=== PATIENT | male | born 1935 | race Caucasian/White ===

== ENCOUNTER 2018-07-11 12:34 | Inpatient (IN) | payer MEDICARE, BC ==
[2018-07-11] MEDS ORDERED: Bisacodyl 10 MG Supp RECTAL PRN (13:30)
[2018-07-11] MEDS ORDERED: Acetaminophen/HYDROcodone 325-5 MG Tab PO PRN (13:32)
[2018-07-11] MEDS ORDERED: traZODone 50 MG Tab PO PRN (13:45)
[2018-07-11] MEDS ORDERED: Albuterol 0.083% 2.5 MG/3 ML Neb Soln INH PRN (15:00)
[2018-07-11] MEDS: CILOSTAZOL 100 MG PO SCH (17:54)
[2018-07-11] MEDS: Insuln Aspart Prot/Insulin Aspart 100 Units/ML 3 ML FlexPen SUBCUT SCH (18:12)
[2018-07-11] MEDS: Linezolid 600 MG Tab PO SCH (19:57)
[2018-07-11] MEDS: Sulfamethoxazole/Trimethoprim 800-160 MG Tab PO SCH (19:57)
[2018-07-11] MEDS: hydrALAZINE 25 MG Tab PO SCH (19:58)
[2018-07-11] MEDS: Mupirocin Oint 22 GM Tube TOP SCH (20:49)
[2018-07-12] MEDS: CILOSTAZOL 100 MG PO SCH (06:24)
[2018-07-12] MEDS: Levothyroxine 75 MCG Tab PO SCH (06:44)
[2018-07-12] MEDS ORDERED: Insuln Aspart Prot/Insulin Aspart 100 Units/ML 3 ML FlexPen SUBCUT SCH (07:00)
[2018-07-12] MEDS ORDERED: CILOSTAZOL 100 MG PO SCH (07:00)
[2018-07-12] MEDS: Calcium Carbonate 750 MG Tab.Chew PO SCH (08:01)
[2018-07-12] MEDS: Oxybutynin 5 MG Tab.ER PO SCH (08:02)
[2018-07-12] MEDS: Sulfamethoxazole/Trimethoprim 800-160 MG Tab PO SCH ×2 (08:03→19:38)
[2018-07-12] MEDS: amLODIPine 10 MG Tab PO SCH (08:03)
[2018-07-12] MEDS: Aspirin 325 MG Tab.EC PO SCH (08:03)
[2018-07-12] MEDS: hydrALAZINE 25 MG Tab PO SCH ×2 (08:04→19:37)
[2018-07-12] MEDS: Famotidine 20 MG Tab PO SCH (08:05)
[2018-07-12] MEDS: Metoprolol Succinate 50 MG Tab.ER PO SCH (08:05)
[2018-07-12] MEDS: Linezolid 600 MG Tab PO SCH ×2 (08:06→19:38)
--- NOTE | 2018-07-12 09:03 | PCM.HP ---
H&P History of Present Illness - General Date of Service: 07/11/18 Admit Problem/Dx: Admission Diagnosis/Problem Admission Diagnosis/Problem Squamous cell carcinoma Source of Information: Patient, Old Records, RN, RN Notes Reviewed History Limitations: Reports: No Limitations - History of Present Illness Initial Comments - Free Text/Narative: Melvin Hidalgo is a 82 yo male with a history of swelling, pain, and some drainage from the left ear for at least 6 months. He was treated with various courses of antibiotics and had culture which grew out methicillin-sensitive Staph aureus. He apparently had incision and drainage of the area in [facility] in September 2017. He had persistent swelling following. Dr. Villafuerte ordered a CT scan of the head which showed soft tissue edema and phlegmon in the lateral part of the ear canal and posterior auricular area. The patient was evaluated by Dr. Aurelio Weinberg in ENT, and upon examination the patient was noted to have an open wound on the posterior auricular area. 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 He was temporized with a vacuum- assisted closure device while final pathology was obtained. Given infection over the tumor, he was also kept on antibiotics to minimize reconstruction contamination. 1 week post op from that operation final margins were negative for tumor involvement and he was taken back to the operating room for a left latissimus free flap and skin graft reconstruction of the ablative defect. He tolerated both operations well. From a neurological standpoint he had no acute issues. From a cardiovascular standpoint his hypertension was managed and remained stable. He had no acute cardiac problems. From a GI standpoint he was tolerating a diabetic diet. He was kept on sliding scale insulin as well as basal insulin which he tolerated well. He was kept also on Synthroid for hypothyroidism. He did have some constipation and was started on a bowel regimen consisting of MiraLAX, Senokot and suppositories but was able to have a bowel movement uneventfully. Pain was controlled with hydrocodone orally once he was weaned from IV medications. Wound cultures initially showed staph colonization but second cultures showed stenotrophomonas as well as vancomycin resistant enterococcus. Infectious disease consultation was sought and his antibiotics were switched to Bactrim and linezolid oral. His kidney function was closely followed given the Bactrim therapy and his creatinine did increase slightly but it was felt acceptable given the limited options for antibiotic therapy with this particular colonization. From a wound healing standpoint his flap remained viable and healthy-appearing with good take of the skin graft. There was no wound breakdown or infection. Although, he did have some neck swelling and the CT scan was thought which showed a small seroma. This was drained at the bedside. There were no complications during the procedure. The back incision remained intact and the drains had consistent serous output and therefore 1 of the back drains was left in place. Patient was sent to [facility] at [facility] for rehab for weakness and deconditioning. - Related Data Allergies/Adverse Reactions: Allergies Allergy/AdvReac Type Severity Reaction Status Date / Time No Known Allergies Allergy Verified 07/11/18 13:18 Home Medications: Home Meds Albuterol [Proventil HFA] 2 puff INH Q4H PRN 07/11/18 [History] Aspirin [Ecotrin] 325 mg PO DAILY 07/11/18 [History] Bisacodyl [Dulcolax] 10 mg RC DAILY PRN 07/11/18 [History] Calcium Carbonate 1,000 mg PO DAILY 07/11/18 [History] Cilostazol 100 mg PO BIDMEALS 07/11/18 [History] Famotidine 20 mg PO DAILY 07/11/18 [History] Hydrocodone/Acetaminophen [Hydrocodon-Acetaminophen 5-325] 1 - 2 tab PO Q4HR PRN 07/11/18 [History] Insuln Asp Prot/Insulin Aspart [NovoLOG Mix 70-30] 15 - 18 unit SUBCUT ACDINNER 07/11/18 [History] Insuln Asp Prot/Insulin Aspart [NovoLOG Mix 70-30] 20 - 25 unit SUBCUT ACBREAKFAST 07/11/18 [History] Levothyroxine 75 mcg PO Q48H 07/11/18 [History] Linezolid 600 mg PO Q12HR 07/11/18 [History] Metoprolol Succinate 100 mg PO DAILY 07/11/18 [History] Mupirocin Oint [Bactroban Oint] 1 applic TP BID 07/11/18 [History] Ondansetron HCl [Ondansetron] 4 mg PO Q8HR PRN 07/11/18 [History] Oxybutynin [Oxybutynin ER] 10 mg PO DAILY 07/11/18 [History] Polyethylene Glycol 3350 1 packet PO DAILY PRN 07/11/18 [History] Sennosides/Docusate Sodium [Senna-Docusate Sodium] 1 tab PO DAILY PRN 07/11/18 [ History] Sulfamethoxazole/Trimethoprim [Sulfamethoxazole-Tmp Ds Tablet] 1 tab PO Q12HR [History] amLODIPine Besylate [Amlodipine Besylate] 10 mg PO DAILY 07/11/18 [History] hydrALAZINE [Apresoline] 50 mg PO BID 07/11/18 [History] traZODone HCl [Trazodone HCl] 50 mg PO BEDTIME PRN 07/11/18 [History] Past Medical History Cardiovascular History: Reports: Afib, High Cholesterol, Hypertension, PVD, Stents Other Cardiovascular History: Coronoary Atherosclerosis of [place] Respiratory History: Reports: COPD, Sleep Apnea Endocrine/Metabolic History: Reports: Diabetes, Type II, Hypothyroidism Oncologic (Cancer) History: Reports: Squamous Cell Carcinoma - Infectious Disease History Infectious Disease History: Reports: VRE - Past Surgical History Other HEENT Surgeries/Procedures: Primary Squamous cell carcinoma of Left ear; Abscess of left external ear; Cancer of Left ear Cardiovascular Surgical History: Reports: Coronary Artery Stent Respiratory Surgical History: Reports: None Oncologic Surgical History: Reports: Other (See Below) Other Oncologic Surgeries/Procedures: skin graft to left ear from thigh Dermatological Surgical History: Reports: Skin Graft Social & Family History - Family History Family Medical History: Noncontributory - Tobacco Use Smoking Status *Q: Former Smoker Years of Tobacco use: 65 Packs/Tins Daily: 0.5 Used Tobacco, but Quit: Yes Month/Year Tobacco Last Used: 07/14 Second Hand Smoke Exposure: No - Caffeine Use Caffeine Use: Reports: Coffee - Recreational Drug Use Recreational Drug Use: No H&P Review of Systems - Review of Systems: Review Of Systems: See Below General: Reports: Weakness. Denies: Fever, Chills, Fatigue Pulmonary: Denies: Shortness of Breath, Cough Cardiovascular: Denies: Chest Pain, Palpitations Gastrointestinal: Denies: Abdominal Pain, Nausea, Vomiting Skin: Reports: No Symptoms Neurological: Reports: No Symptoms Exam - Exam Exam: See Below - Vital Signs Vital Signs: Last Vital Signs Temp 36.8 C 07/12/18 06:00 Pulse 63 07/12/18 08:05 Resp 18 07/12/18 06:00 BP 115/48 L 07/12/18 08:05 Pulse Ox 94 L 07/12/18 06:00 Weight: 95.254 kg - Exam General: Alert, Oriented, Cooperative HEENT: Conjunctiva Clear, Mucosa Moist & [place] Lungs: Clear to Auscultation, Normal Respiratory Effort, Decreased Breath Sounds Cardiovascular: Regular Rate, Regular Rhythm GI/Abdominal Exam: Normal Bowel Sounds, Soft, Non-Tender Extremities: Normal Inspection Peripheral Pulses: 2+: Radial (L), Radial (R) Skin: Warm, Dry, Intact, Incision (Left ear/face/cheek incision area is healing well; no evidence of infection; no drainage; tender to palpation) Neuro Extensive - Mental Status: Alert, Oriented x3 - Patient Data Lab Results Last 24 hrs: Laboratory Results - last 24 hr 07/11/18 07/11/18 07/12/18 Range/Units 18:01 19:54 06:12 POC Glucose 148 H 231 H 108 H (74-106) mg/dL *Q Meaningful Use (ADM) - VTE *Q VTE Mechanical Contraindications *Q: At Risk for Falls - Problem List (1) Abscess of left ear canal SNOMED Code(s): 81579684 ICD Code: H60.02 - ABSCESS OF LEFT EXTERNAL EAR Status: Acute Priority: Medium Current Visit: Yes (2) Cancer of left ear SNOMED Code(s): 942263147 ICD Code: C44.209 - UNSP MALIG NEOPLASM SKIN/ LEFT EAR AND EXTERNAL AURIC CANAL Status: Acute Priority: Medium Current Visit: Yes (3) Squamous cell carcinoma of left external ear SNOMED Code(s): 643626827 ICD Code: C44.229 - SQUAMOUS CELL CARCINOMA SKIN/ LEFT EAR AND EXTRN AURIC CANAL Status: Acute Priority: Medium Current Visit: No (4) Atherosclerotic heart disease of [place] coronary artery without angina pectoris SNOMED Code(s): 8110329642939 ICD Code: I25.10 - ATHSCL HEART DISEASE OF [place] CORONARY ARTERY W/O ANG PCTRS Status: Chronic Current Visit: No Qualifiers: [place] vs. transplanted heart: [place] heart Qualified Code(s): I25.10 - Atherosclerotic heart disease of [place] coronary artery without angina pectoris (5) Chronic obstructive pulmonary disease SNOMED Code(s): 14754926 ICD Code: J44.9 - CHRONIC OBSTRUCTIVE PULMONARY DISEASE, UNSPECIFIED Status : Chronic Current Visit: No Qualifiers: COPD type: unspecified COPD Qualified Code(s): J44.9 - Chronic obstructive pulmonary disease, unspecified (6) DM2 (diabetes mellitus, type 2) SNOMED Code(s): 64971781 ICD Code: E11.9 - TYPE 2 DIABETES MELLITUS WITHOUT COMPLICATIONS Status: Chronic Current Visit: No Qualifiers: Diabetes mellitus termite control service representative insulin use: with skilled nursing use Diabetes mellitus complication status: with circulatory complication Diabetes mellitus complication detail: with other circulatory complications Qualified Code(s): E11.59 - Type 2 diabetes mellitus with other circulatory complications; Z79.4 - [facility] (current) use of insulin (7) Essential (primary) hypertension SNOMED Code(s): 70471171 ICD Code: I10 - ESSENTIAL (PRIMARY) HYPERTENSION Status: Chronic Current Visit: No (8) Hypothyroidism due to acquired atrophy of thyroid SNOMED Code(s): 870691693 ICD Code: E03.4 - ATROPHY OF THYROID (ACQUIRED) Status: Chronic Current Visit: No (9) Peripheral vascular disease SNOMED Code(s): 839394040 ICD Code: I73.9 - PERIPHERAL VASCULAR DISEASE, UNSPECIFIED Status: Chronic Current Visit: No Problem List Initiated/Reviewed/Updated: Yes Orders Last 24hrs: Active Orders 24 hr Category Date Time Status Patient Status [ADT] Routine ADT 07/11/18 12:46 Active Ambulate [RC] Care 07/11/18 12:46 Active Blood Glucose Check, Bedside [RC] 07,11,,20 Care 07/11/18 13:17 Active Height and Weight [RC] .PRN Care 07/11/18 12:47 Active Intake and Output [RC] Care 07/11/18 12:47 Active May Shower [RC] Care 07/11/18 12:46 Active Oxygen Therapy [RC] .PRN Care 07/11/18 12:46 Active Vital Signs [RC] Care 07/11/18 12:46 Active Consult to Case Management [CONS] Routine Cons 07/11/18 12:46 Active OT Evaluation and Treatment [CONS] Routine Cons 07/11/18 12:46 Active PT Evaluation and Treatment [CONS] Routine Cons 07/11/18 12:46 Active Acetaminophen/HYDROcodone [Ruffin 325-5 MG] Med 07/11/18 13:32 Active 1 tab PO Q4H PRN Albuterol [Proventil Neb Soln] Med 07/11/18 15:00 Active 2.5 mg INH Q4H PRN Aspirin [Ecotrin] Med 07/12/18 08:00 Active 325 mg PO DAILY Bisacodyl [Dulcolax] Med 07/11/18 13:30 Active 10 mg RECTAL DAILY PRN Calcium Carbonate [Tums Extra Strength] Med 07/12/18 08:00 Active 1,500 mg PO DAILY Docusate Sodium/Sennosides [Senna Plus] Med 07/11/18 13:45 Active 1 tab PO DAILY PRN Famotidine [Pepcid] Med 07/12/18 08:00 Active 20 mg PO DAILY Insuln Asp Prot/Insulin Aspart [NovoLOG Mix 70-30] Med 07/11/18 17:00 Active 15 - 18 unit SUBCUT ACDINNER Insuln Asp Prot/Insulin Aspart [NovoLOG Mix 70-30] Med 07/12/18 07:00 Active 20 - 25 unit SUBCUT ACBREAKFAST Levothyroxine Med 07/12/18 07:00 Active 75 mcg PO Q48H Linezolid [Zyvox] Med 07/11/18 20:00 Active 600 mg PO Q12HR Metoprolol Succinate [Toprol XL] Med 07/12/18 08:00 Active 100 mg PO DAILY Mupirocin Oint [Bactroban Oint] Med 07/11/18 20:00 Active 0 gm TOP BID Non-Formulary Medication [NF Drug] Med 07/12/18 07:00 Active 1 each PO BIDAC Ondansetron [Zofran ODT] Med 07/11/18 13:45 Active 4 mg PO Q8H PRN Oxybutynin [Oxybutynin ER] Med 07/12/18 08:00 Active 10 mg PO DAILY Polyethylene Glycol 3350 [MiraLAX] Med 07/11/18 13:45 Active 17 gm PO DAILY PRN Sulfamethoxazole/Trimethoprim [Septra DS] Med 07/11/18 20:00 Active 1 tab PO Q12HR amLODIPine [Norvasc] Med 07/12/18 08:00 Active 10 mg PO DAILY hydrALAZINE [Apresoline] Med 07/11/18 20:00 Active 50 mg PO BID traZODone Med 07/11/18 13:45 Active 50 mg PO BEDTIME PRN Antiembolic Hose [OM.PC] Routine Oth 07/11/18 12:46 Ordered Resuscitation Status Routine Resus Stat 07/11/18 12:46 Ordered Medication Orders Hydrocodone Bitart/Acetaminophen ([place]uffin 325-5 Mg) 1 tab PO Q4H PRN PRN Reason: pain Albuterol (Proventil Neb Soln) 2.5 mg INH Q4H PRN PRN Reason: WHEEZING/SHORTNESS OF BREATH Amlodipine Besylate (Norvasc) 10 mg PO DAILY [facility] Last Admin: 07/12/18 08:03 Dose: Not Given Aspirin (Ecotrin) 325 mg PO DAILY [facility] Last Admin: 07/12/18 08:03 Dose: 325 mg Bisacodyl (Dulcolax) 10 mg RECTAL DAILY PRN PRN Reason: constipation Calcium Carbonate/Glycine (Tums Extra Strength) 1,500 mg PO DAILY [facility] Last Admin: 07/12/18 08:01 Dose: 1,500 mg Famotidine (Pepcid) 20 mg PO DAILY [facility] Last Admin: 07/12/18 08:05 Dose: Not Given Hydralazine HCl (Apresoline) 50 mg PO BID [facility] Last Admin: 07/12/18 08:04 Dose: 50 mg Admin: 07/11/18 19:58 Dose: 50 mg Insulin Aspart (Novolog Mix 70-30) 15 - 18 unit SUBCUT ACDINNER [facility] Last Admin: 07/11/18 18:12 Dose: 10 units Insulin Aspart (Novolog Mix 70-30) 20 - 25 unit SUBCUT ACBREAKFAST [facility] Last Admin: 07/12/18 06:25 Dose: Not Given Levothyroxine Sodium (Levothyroxine) 75 mcg PO Q48H [facility] Last Admin: 07/12/18 06:44 Dose: 75 mcg Linezolid (Zyvox) 600 mg PO Q12HR [facility] Stop: 08/04/18 20:01 Last Admin: 07/12/18 08:06 Dose: 600 mg Admin: 07/11/18 19:57 Dose: 600 mg Metoprolol Succinate (Toprol Xl) 100 mg PO DAILY [facility] Last Admin: 07/12/18 08:05 Dose: 100 mg Mupirocin (Bactroban Oint) 0 gm TOP BID [facility] Last Admin: 07/11/18 20:49 Dose: Not Given Cilostazol 100mg 1 each PO BIDAC [facility] Last Admin: 07/12/18 06:44 Dose: 1 each Ondansetron HCl (Zofran Odt) 4 mg PO Q8H PRN PRN Reason: nausea Oxybutynin Chloride (Oxybutynin Er) 10 mg PO DAILY [facility] Last Admin: 07/12/18 08:02 Dose: Not Given Polyethylene Glycol (Miralax) 17 gm PO DAILY PRN PRN Reason: CONSTIPATION Senna/Docusate Sodium (Senna Plus) 1 tab PO DAILY PRN PRN Reason: CONSTIPATION Trazodone HCl (Trazodone) 50 mg PO BEDTIME PRN PRN Reason: INSOMNIA Trimethoprim/Sulfamethoxazole (Septra Ds) 1 tab PO Q12HR [facility] Stop: 08/04/18 20:01 Last Admin: 07/12/18 08:03 Dose: 1 tab Admin: 07/11/18 19:57 Dose: 1 tab Assessment/Plan Comment:: 83 yo male patient with a past medical history of CAD, DM, HTN, PVD, Mixed Hyperlipidemia, and COPD is admitted to the swing bed unit at [facility] for rehabilitation for weakness and deconditioning. Patient states he wishes to be a full code. He does want to be transferred to a higher level of care should the need arise. Will continue home medications without any changes. Will have PT and OT services evaluate patient. I do not anticipate a stay >2 weeks as the patient appears to be doing well. I patient will need home health upon discharge.
[2018-07-12] MEDS: Mupirocin Oint 22 GM Tube TOP SCH ×2 (16:13→19:38)
[2018-07-12] MEDS: Insuln Aspart Prot/Insulin Aspart 100 Units/ML 3 ML FlexPen SUBCUT SCH (17:53)
[2018-07-12] MEDS: Insulin Regular, Human 100 Units/ML 3 ML Vial SUBCUT SCH (18:02)
[2018-07-13] MEDS: Aspirin 325 MG Tab.EC PO SCH (09:00)
[2018-07-13] MEDS: Oxybutynin 5 MG Tab.ER PO SCH (09:00)
[2018-07-13] MEDS: Sulfamethoxazole/Trimethoprim 800-160 MG Tab PO SCH ×2 (09:05→19:49)
[2018-07-13] MEDS: Famotidine 20 MG Tab PO SCH (09:07)
[2018-07-13] MEDS: Linezolid 600 MG Tab PO SCH ×2 (09:07→19:49)
[2018-07-13] MEDS: Calcium Carbonate 750 MG Tab.Chew PO SCH (09:07)
[2018-07-13] MEDS: amLODIPine 10 MG Tab PO SCH (09:08)
[2018-07-13] MEDS: hydrALAZINE 25 MG Tab PO SCH ×2 (09:09→19:49)
[2018-07-13] MEDS: Mupirocin Oint 22 GM Tube TOP SCH ×2 (09:10→19:51)
[2018-07-13] MEDS: Metoprolol Succinate 50 MG Tab.ER PO SCH (09:16)
[2018-07-13] MEDS: Insulin Regular, Human 100 Units/ML 3 ML Vial SUBCUT SCH ×3 (09:26→18:23)
[2018-07-13] MEDS: Aluminum Hydroxide/Magnesium Hydroxide/Simethicone Susp 30 ML Cup PO PRN (19:49)
[2018-07-14] MEDS: Ondansetron 4 MG Tab.DIS PO PRN (01:37)
[2018-07-14] MEDS: Levothyroxine 75 MCG Tab PO SCH (06:24)
[2018-07-14] MEDS: Aspirin 325 MG Tab.EC PO SCH (09:36)
[2018-07-14] MEDS: Sulfamethoxazole/Trimethoprim 800-160 MG Tab PO SCH ×2 (09:36→19:51)
[2018-07-14] MEDS: Famotidine 20 MG Tab PO SCH (09:36)
[2018-07-14] MEDS: Linezolid 600 MG Tab PO SCH ×2 (09:39→19:52)
[2018-07-14] MEDS: Mupirocin Oint 22 GM Tube TOP SCH ×2 (09:42→19:51)
[2018-07-14] MEDS: Insulin Regular, Human 100 Units/ML 3 ML Vial SUBCUT SCH ×3 (09:43→17:26)
[2018-07-14] MEDS: hydrALAZINE 25 MG Tab PO SCH ×2 (09:44→19:52)
[2018-07-14] MEDS: amLODIPine 10 MG Tab PO SCH (09:45)
[2018-07-14] MEDS: Calcium Carbonate 750 MG Tab.Chew PO SCH (09:46)
[2018-07-14] MEDS: Oxybutynin 5 MG Tab.ER PO SCH (09:46)
[2018-07-14] MEDS: Metoprolol Succinate 50 MG Tab.ER PO SCH (09:46)
[2018-07-15] MEDS: Aluminum Hydroxide/Magnesium Hydroxide/Simethicone Susp 30 ML Cup PO PRN (08:22)
[2018-07-15] MEDS: Aspirin 325 MG Tab.EC PO SCH (08:25)
[2018-07-15] MEDS: Famotidine 20 MG Tab PO SCH (08:25)
[2018-07-15] MEDS: Linezolid 600 MG Tab PO SCH ×2 (08:26→20:02)
[2018-07-15] MEDS: Sulfamethoxazole/Trimethoprim 800-160 MG Tab PO SCH ×2 (08:27→20:02)
[2018-07-15] MEDS: Insulin Regular, Human 100 Units/ML 3 ML Vial SUBCUT SCH ×3 (08:29→18:27)
[2018-07-15] MEDS: Metoprolol Succinate 50 MG Tab.ER PO SCH (08:30)
[2018-07-15] MEDS: amLODIPine 10 MG Tab PO SCH (08:30)
[2018-07-15] MEDS: hydrALAZINE 25 MG Tab PO SCH ×2 (08:33→20:01)
[2018-07-15] MEDS: Mupirocin Oint 22 GM Tube TOP SCH ×2 (08:34→20:02)
[2018-07-15] MEDS: Calcium Carbonate 750 MG Tab.Chew PO SCH (08:35)
[2018-07-15] MEDS: Oxybutynin 5 MG Tab.ER PO SCH (08:35)
[2018-07-15] MEDS: Ondansetron 4 MG Tab.DIS PO PRN (16:46)
[2018-07-16] MEDS: Levothyroxine 75 MCG Tab PO SCH (06:17)
[2018-07-16] MEDS: Linezolid 600 MG Tab PO SCH ×2 (08:11→19:50)
[2018-07-16] MEDS: Sulfamethoxazole/Trimethoprim 800-160 MG Tab PO SCH ×2 (08:11→19:49)
[2018-07-16] MEDS: Aspirin 325 MG Tab.EC PO SCH (08:12)
[2018-07-16] MEDS: Metoprolol Succinate 50 MG Tab.ER PO SCH (08:12)
[2018-07-16] MEDS: Oxybutynin 5 MG Tab.ER PO SCH (08:13)
[2018-07-16] MEDS: Famotidine 20 MG Tab PO SCH (08:13)
[2018-07-16] MEDS: Insulin Regular, Human 100 Units/ML 3 ML Vial SUBCUT SCH ×3 (08:13→17:08)
[2018-07-16] MEDS: amLODIPine 10 MG Tab PO SCH (08:13)
[2018-07-16] MEDS: hydrALAZINE 25 MG Tab PO SCH ×2 (08:13→19:50)
[2018-07-16] MEDS: Mupirocin Oint 22 GM Tube TOP SCH ×2 (08:14→19:50)
[2018-07-16] MEDS: Calcium Carbonate 750 MG Tab.Chew PO SCH (08:15)
[2018-07-16] MEDS: Ondansetron 4 MG Tab.DIS PO PRN ×2 (09:50→19:48)
[2018-07-17] MEDS: Ondansetron 4 MG Tab.DIS PO PRN ×2 (07:43→19:40)
[2018-07-17] MEDS: Aspirin 325 MG Tab.EC PO SCH (07:43)
[2018-07-17] MEDS: Linezolid 600 MG Tab PO SCH ×2 (07:43→19:40)
[2018-07-17] MEDS: Famotidine 20 MG Tab PO SCH (07:44)
[2018-07-17] MEDS: Metoprolol Succinate 50 MG Tab.ER PO SCH (07:44)
[2018-07-17] MEDS: Sulfamethoxazole/Trimethoprim 800-160 MG Tab PO SCH ×2 (07:44→19:40)
[2018-07-17] MEDS: Mupirocin Oint 22 GM Tube TOP SCH ×2 (07:45→19:40)
[2018-07-17] MEDS: amLODIPine 10 MG Tab PO SCH (07:45)
[2018-07-17] MEDS: hydrALAZINE 25 MG Tab PO SCH ×2 (07:46→19:40)
[2018-07-17] MEDS: Oxybutynin 5 MG Tab.ER PO SCH (07:46)
[2018-07-17] MEDS: Insulin Regular, Human 100 Units/ML 3 ML Vial SUBCUT SCH ×3 (07:46→17:59)
[2018-07-17] MEDS: Calcium Carbonate 750 MG Tab.Chew PO SCH (07:47)
[2018-07-17 11:42] LABS: ANION GAP 11.9 mmol/L (10-20)
[2018-07-17] MEDS: Sodium Chloride 0.9% 1,000 ML IV SCH ×2 (17:29→22:40)
[2018-07-17] MEDS: Sodium Chloride 0.9% 10 ML Syringe FLUSH PRN (17:30)
[2018-07-17] MEDS: Polyethylene Glycol 3350 Powder 17 GM Packet PO PRN (17:48)
[2018-07-18] MEDS: Levothyroxine 75 MCG Tab PO SCH (06:21)
[2018-07-18 06:52] LABS: ANION GAP 7.6 mmol/L (10-20)
[2018-07-18] MEDS: Mupirocin Oint 22 GM Tube TOP SCH ×2 (07:55→20:08)
[2018-07-18] MEDS: Metoprolol Succinate 50 MG Tab.ER PO SCH (07:55)
[2018-07-18] MEDS: Famotidine 20 MG Tab PO SCH (07:56)
[2018-07-18] MEDS: Aspirin 325 MG Tab.EC PO SCH ×2 (07:56→08:41)
[2018-07-18] MEDS: Linezolid 600 MG Tab PO SCH ×2 (07:56→19:50)
[2018-07-18] MEDS: Sulfamethoxazole/Trimethoprim 800-160 MG Tab PO SCH ×2 (07:56→19:49)
[2018-07-18] MEDS: Oxybutynin 5 MG Tab.ER PO SCH (07:57)
[2018-07-18] MEDS: hydrALAZINE 25 MG Tab PO SCH ×2 (07:57→20:07)
[2018-07-18] MEDS: Calcium Carbonate 750 MG Tab.Chew PO SCH (07:57)
[2018-07-18] MEDS: amLODIPine 10 MG Tab PO SCH (07:57)
[2018-07-18] MEDS: Insulin Regular, Human 100 Units/ML 3 ML Vial SUBCUT SCH ×3 (08:06→17:59)
[2018-07-18] MEDS: Ondansetron 4 MG Tab.DIS PO PRN (17:40)
[2018-07-18] MEDS: Sodium Chloride 0.9% 10 ML Syringe FLUSH PRN (20:53)
[2018-07-19 07:24] LABS: ANION GAP 11.4 mmol/L (10-20)
[2018-07-19] MEDS ORDERED: Sodium Chloride 0.9% 1,000 ML IV ONE ×2 (07:46)
[2018-07-19] MEDS ORDERED: Iopamidol 612 MG/ML 100 ML Bottle IVPUSH ONE (07:50)
[2018-07-19] MEDS: Linezolid 600 MG Tab PO SCH ×2 (08:48→20:46)
[2018-07-19] MEDS: amLODIPine 10 MG Tab PO SCH (08:49)
[2018-07-19] MEDS: Famotidine 20 MG Tab PO SCH (08:49)
[2018-07-19] MEDS: Sulfamethoxazole/Trimethoprim 800-160 MG Tab PO SCH (08:50)
[2018-07-19] MEDS: Metoprolol Succinate 50 MG Tab.ER PO SCH (08:50)
[2018-07-19] MEDS: Aspirin 325 MG Tab.EC PO SCH (08:50)
[2018-07-19] MEDS: Insulin Regular, Human 100 Units/ML 3 ML Vial SUBCUT SCH ×3 (08:51→17:22)
[2018-07-19] MEDS: Oxybutynin 5 MG Tab.ER PO SCH (08:51)
[2018-07-19] MEDS: hydrALAZINE 25 MG Tab PO SCH (08:51)
[2018-07-19] MEDS: Mupirocin Oint 22 GM Tube TOP SCH ×2 (08:51→20:47)
[2018-07-19] MEDS: Calcium Carbonate 750 MG Tab.Chew PO SCH (08:52)
[2018-07-19] MEDS ORDERED: Magnesium Hydroxide 400 MG/5 ML Susp 30 ML Cup PO PRN (14:18)
[2018-07-19] MEDS: Metoclopramide 10 MG/2 ML SDV IVPUSH SCH (17:22)
[2018-07-20] MEDS: Sodium Chloride 0.9% 10 ML Syringe FLUSH PRN ×3 (00:55→20:00)
[2018-07-20] MEDS: Metoclopramide 10 MG/2 ML SDV IVPUSH SCH ×3 (00:56→17:15)
[2018-07-20] MEDS: Linezolid 600 MG Tab PO SCH ×2 (07:41→20:00)
[2018-07-20] MEDS: Famotidine 20 MG Tab PO SCH (07:42)
[2018-07-20] MEDS: Metoprolol Succinate 50 MG Tab.ER PO SCH (07:42)
[2018-07-20] MEDS: Mupirocin Oint 22 GM Tube TOP SCH ×2 (07:42→20:10)
[2018-07-20] MEDS: Aspirin 325 MG Tab.EC PO SCH (07:42)
[2018-07-20] MEDS: Levothyroxine 75 MCG Tab PO SCH (07:42)
[2018-07-20] MEDS: Insulin Regular, Human 100 Units/ML 3 ML Vial SUBCUT SCH ×3 (07:43→17:14)
[2018-07-20] MEDS: amLODIPine 10 MG Tab PO SCH (07:44)
[2018-07-20] MEDS: Calcium Carbonate 750 MG Tab.Chew PO SCH (07:45)
--- NOTE | 2018-07-20 22:27 | PCM.PN ---
- General Info Date of Service: 07/19/18 Admission Dx/Problem (Free Text): Admission Diagnosis/Problem Admission Diagnosis/Problem Squamous cell carcinoma Weakness Deconditioning s/p Skin graft Subjective Update: Patient complains of upper right and epigastric pain that started a couple days ago. He has not felt like eating and his PO intake has been poor. He feels nauseated most of the time. He has not had any vomiting. No diarrhea. His BM's have bee small and inconsistent. His fluid intake has been average. Otherwise, he feels weak and has not been getting out of bed most of the time. No chest pain or SOB. No focal neurological problems. He is taking Zofran with some relief. Functional Status: Reports: Pain Controlled, Urinating, New Symptoms (abdominal pain) Pain Score: 0 - Review of Systems General: Reports: Weakness. Denies: Fever, Fatigue Pulmonary: Denies: Shortness of Breath, Cough Cardiovascular: Denies: Chest Pain, Palpitations Gastrointestinal: Reports: Abdominal Pain, Constipation, Nausea. Denies: Diarrhea, Vomiting Skin: Reports: No Symptoms Neurological: Reports: No Symptoms. Denies: Dizziness, Headache - Patient Data Vitals - Most Recent: Last Vital Signs Temp 36.7 C 07/20/18 06:00 Pulse 72 07/20/18 07:42 Resp 18 07/20/18 06:00 BP 136/69 07/20/18 07:42 Pulse Ox 95 07/20/18 06:00 Weight - Most Recent: 91.399 kg I&O - Last 24 Hours: Intake & Output 07/20/18 07/20/18 07/20/18 06:59 14:59 22:59 Intake Total 720 480 180 Output Total 1400 40 Balance -680 480 140 Lab Results Last 24 Hours: Laboratory Results - last 24 hr 07/20/18 07/20/18 07/20/18 Range/Units 06:06 11:12 17:07 POC Glucose 104 191 H 169 H (74-106) mg/dL 07/20/18 Range/Units 19:55 POC Glucose 162 H (74-106) mg/dL Med Orders - Current: Current Medications Hydrocodone Bitart/Acetaminophen ([place] 325-5 Mg) 1 tab PO Q4H PRN PRN Reason: pain Al Hydroxide/Mg Hydroxide (Mag-Al Plus) 30 ml PO Q4H PRN PRN Reason: Indigestion Last Admin: 07/15/18 08:22 Dose: 30 ml Albuterol (Proventil Neb Soln) 2.5 mg INH Q4H PRN PRN Reason: WHEEZING/SHORTNESS OF BREATH Amlodipine Besylate (Norvasc) 10 mg PO DAILY [facility] Last Admin: 07/20/18 07:44 Dose: 10 mg Aspirin (Ecotrin) 325 mg PO DAILY [facility] Last Admin: 07/20/18 07:42 Dose: 325 mg Bisacodyl (Dulcolax) 10 mg RECTAL DAILY PRN PRN Reason: constipation Calcium Carbonate/Glycine (Tums Extra Strength) 1,500 mg PO DAILY [facility] Last Admin: 07/20/18 07:45 Dose: 1,500 mg Cilostazol (Pletal) 100 mg PO BIDAC [facility] Last Admin: 07/20/18 17:15 Dose: 100 mg Famotidine (Pepcid) 20 mg PO DAILY [facility] Last Admin: 07/20/18 07:42 Dose: 20 mg Insulin Human Regular (Humulin R) 0 unit SUBCUT TIDMEALS [facility]; Protocol Last Admin: 07/20/18 17:14 Dose: 1 units Levothyroxine Sodium (Levothyroxine) 75 mcg PO Q48H [facility] Last Admin: 07/20/18 07:42 Dose: 75 mcg Linezolid (Zyvox) 600 mg PO BID [facility] Stop: 08/14/18 08:01 Last Admin: 07/20/18 20:00 Dose: 600 mg Magnesium Hydroxide (Milk Of Magnesia) 30 ml PO DAILY PRN PRN Reason: Constipation Last Admin: 07/19/18 17:23 Dose: 30 ml Metoclopramide HCl (Reglan) 5 mg IVPUSH Q8H [facility] Stop: 07/21/18 17:01 Last Admin: 07/20/18 17:15 Dose: 5 mg Metoprolol Succinate (Toprol Xl) 100 mg PO DAILY [facility] Last Admin: 07/20/18 07:42 Dose: 100 mg Mupirocin (Bactroban Oint) 0 gm TOP BID [facility] Last Admin: 07/20/18 20:10 Dose: 1 applic Nf-Minocycline 100mg (CapPat Own) 1 each PO BID [facility] Last Admin: 07/20/18 20:01 Dose: 1 each Ondansetron HCl (Zofran Odt) 4 mg PO Q6H PRN PRN Reason: Nausea/Vomiting Last Admin: 07/18/18 17:40 Dose: 4 mg Polyethylene Glycol (Miralax) 17 gm PO DAILY PRN PRN Reason: CONSTIPATION Last Admin: 07/17/18 17:48 Dose: 17 gm Senna/Docusate Sodium (Senna Plus) 1 tab PO DAILY PRN PRN Reason: CONSTIPATION Last Admin: 07/19/18 08:49 Dose: 1 tab Sodium Chloride (Saline Flush) 10 ml FLUSH ASDIRECTED PRN PRN Reason: Keep Vein Open Last Admin: 07/20/18 20:00 Dose: 10 ml Trazodone HCl (Trazodone) 50 mg PO BEDTIME PRN PRN Reason: INSOMNIA Discontinued Medications Cilostazol (Pletal) 1 mg PO BIDAC [facility] Last Admin: 07/12/18 17:58 Dose: 1 mg Cilostazol (Pletal) 100 mg PO BID LUIS ALBERTO Hydralazine HCl (Apresoline) 50 mg PO BID [facility] Last Admin: 07/19/18 08:51 Dose: Not Given Sodium Chloride (Normal Saline) 1,000 mls @ 200 mls/hr IV ASDIRECTED [facility] Stop: 07/18/18 22:14 Last Admin: 07/17/18 22:40 Dose: 200 mls/hr Sodium Chloride (Normal Saline) 1,000 mls @ 999 mls/hr IV ONETIME ONE Stop: 07/19/18 08:46 Last Admin: 07/19/18 08:48 Dose: 999 mls/hr Sodium Chloride (Normal Saline) 1,000 mls @ 999 mls/hr IV ONETIME ONE Stop: 07/19/18 08:46 Last Admin: 07/19/18 10:30 Dose: 999 mls/hr Insulin Aspart (Novolog Mix 70-30) 15 - 18 unit SUBCUT ACDINNER [facility] Last Admin: 07/12/18 17:53 Dose: Not Given Insulin Aspart (Novolog Mix 70-30) 20 - 25 unit SUBCUT ACBREAKFAST [facility] Last Admin: 07/12/18 06:25 Dose: Not Given Iopamidol (Isovue-300 (61%)) 100 ml IVPUSH ONETIME ONE Stop: 07/19/18 07:51 Last Admin: 08/23/18 08:12 Dose: 100 ml Linezolid (Zyvox) 600 mg PO Q12HR [facility] Stop: 08/04/18 20:01 Last Admin: 07/12/18 08:06 Dose: 600 mg Cilostazol 100 Mg 100 mg PO BIDAC [facility] Last Admin: 07/11/18 17:54 Dose: 100 mg Cilostazol 100mg 1 each PO BIDAC [facility] Last Admin: 07/12/18 06:44 Dose: 1 each Ondansetron HCl (Zofran Odt) 4 mg PO Q8H PRN PRN Reason: nausea Last Admin: 07/16/18 09:50 Dose: 4 mg Oxybutynin Chloride (Oxybutynin Er) 10 mg PO DAILY [facility] Last Admin: 07/19/18 08:51 Dose: Not Given Trimethoprim/Sulfamethoxazole (Septra Ds) 1 tab PO Q12HR [facility] Stop: 08/04/18 20:01 Last Admin: 07/12/18 08:03 Dose: 1 tab Trimethoprim/Sulfamethoxazole (Septra Ds) 1 tab PO BID [facility] Stop: 08/14/18 08:01 Last Admin: 07/19/18 08:50 Dose: 1 tab - Exam General: Alert, Oriented, Cooperative, No Acute Distress Lungs: Clear to Auscultation, Normal Respiratory Effort Cardiovascular: Regular Rate, Regular Rhythm GI/Abdominal Exam: Soft, Tender (generalized), Abnormal Bowel Sounds (Hypoactive ). 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 transplanted heart: elem heart Qualified Code(s): I25.10 - Atherosclerotic heart disease of [place] coronary artery without angina pectoris (5) Chronic obstructive pulmonary disease SNOMED Code(s): 32887646 Code(s): J44.9 - CHRONIC OBSTRUCTIVE PULMONARY DISEASE, UNSPECIFIED Status : Chronic Current Visit: No Qualifiers: COPD type: unspecified COPD Qualified Code(s): J44.9 - Chronic obstructive pulmonary disease, unspecified (6) DM2 (diabetes mellitus, type 2) SNOMED Code(s): 03192462 Code(s): E11.9 - TYPE 2 DIABETES MELLITUS WITHOUT COMPLICATIONS Status: Chronic Current Visit: No Qualifiers: Diabetes mellitus snf insulin use: with buttermaker use Diabetes mellitus complication status: with circulatory complication Diabetes mellitus complication detail: with other circulatory complications Qualified Code(s): E11.59 - Type 2 diabetes mellitus with other circulatory complications; Z79.4 - bed bug exterminator (current) use of insulin (7) Essential (primary) hypertension SNOMED Code(s): 27065922 Code(s): I10 - ESSENTIAL (PRIMARY) HYPERTENSION Status: Chronic Current Visit: No (8) Hypothyroidism due to acquired atrophy of thyroid SNOMED Code(s): 261887498 Code(s): E03.4 - ATROPHY OF THYROID (ACQUIRED) Status: Chronic Current Visit: No (9) Peripheral vascular disease SNOMED Code(s): 375511061 Code(s): I73.9 - PERIPHERAL VASCULAR DISEASE, UNSPECIFIED Status: Chronic Current Visit: No - Problem List Review Problem List Initiated/Reviewed/Updated: Yes - My Orders Last 24 Hours: My Active Orders 07/20/18 18:35 Upper Extremity wo Cont Lt [CT] Routine 07/26/18 05:11 CBC WITH AUTO DIFF [HEME] Q7D CMP [COMPREHENSIVE METABOLIC PN,CMP] [CHEM] Q7D 08/02/18 05:11 CBC WITH AUTO DIFF [HEME] Q7D CMP [COMPREHENSIVE METABOLIC PN,CMP] [CHEM] Q7D - Assessment Assessment:: SCC Weakness Deconditioning Constipation - Plan Plan:: 83 yo male patient with a past medical history of CAD, DM, HTN, PVD, Mixed Hyperlipidemia, and COPD is admitted to the swing bed unit at [facility] for rehabilitation for weakness and deconditioning. CT scan of Abd/pelvis shows moderate stool burden and Cholecystolithiasis. I did speak with Dr. Inderjit Lee today regarding possible surgery. Lisa is not recommended at this time as his Gallbladder has not changed in the past couple of years. Recommendation is to alleviate the stool burden and his symptoms should improve. Will have nursing be more diligent with stool medications. Start Reglan scheduled for the next 3 days. Will give IVF for low sodium and help move stool. Continue to monitor. I did speak with patient to get out of bed more and walk. This will help with stool burden. NOTE: This patient was seen and examined by me as an [facility] provider
[2018-07-21] MEDS: Sodium Chloride 0.9% 10 ML Syringe FLUSH PRN (01:04)
[2018-07-21] MEDS: Metoclopramide 10 MG/2 ML SDV IVPUSH SCH ×3 (01:04→17:21)
[2018-07-21] MEDS: Mupirocin Oint 22 GM Tube TOP SCH ×2 (08:27→20:12)
[2018-07-21] MEDS: amLODIPine 10 MG Tab PO SCH (08:28)
[2018-07-21] MEDS: Calcium Carbonate 750 MG Tab.Chew PO SCH (08:30)
[2018-07-21] MEDS: Aspirin 325 MG Tab.EC PO SCH (08:30)
[2018-07-21] MEDS: Famotidine 20 MG Tab PO SCH (08:31)
[2018-07-21] MEDS: Linezolid 600 MG Tab PO SCH ×2 (08:32→20:10)
[2018-07-21] MEDS: Metoprolol Succinate 50 MG Tab.ER PO SCH (08:33)
[2018-07-21] MEDS: Polyethylene Glycol 3350 Powder 17 GM Packet PO PRN (08:37)
[2018-07-21] MEDS: Insulin Regular, Human 100 Units/ML 3 ML Vial SUBCUT SCH ×3 (08:48→17:23)
[2018-07-22] MEDS: Levothyroxine 75 MCG Tab PO SCH (06:39)
[2018-07-22] MEDS: Famotidine 20 MG Tab PO SCH (07:50)
[2018-07-22] MEDS: Mupirocin Oint 22 GM Tube TOP SCH ×2 (07:50→20:48)
[2018-07-22] MEDS: Linezolid 600 MG Tab PO SCH ×2 (07:51→20:47)
[2018-07-22] MEDS: amLODIPine 10 MG Tab PO SCH (07:51)
[2018-07-22] MEDS: Metoprolol Succinate 50 MG Tab.ER PO SCH (07:51)
[2018-07-22] MEDS: Insulin Regular, Human 100 Units/ML 3 ML Vial SUBCUT SCH ×3 (07:51→17:24)
[2018-07-22] MEDS: Aspirin 325 MG Tab.EC PO SCH (07:51)
[2018-07-22] MEDS: Calcium Carbonate 750 MG Tab.Chew PO SCH (07:52)
[2018-07-22] MEDS: Ondansetron 4 MG Tab.DIS PO PRN (21:28)
[2018-07-23] MEDS: Mupirocin Oint 22 GM Tube TOP SCH ×2 (08:07→20:12)
[2018-07-23] MEDS: Aspirin 325 MG Tab.EC PO SCH (08:09)
[2018-07-23] MEDS: Famotidine 20 MG Tab PO SCH (08:09)
[2018-07-23] MEDS: Linezolid 600 MG Tab PO SCH ×2 (08:10→20:11)
[2018-07-23] MEDS: Calcium Carbonate 750 MG Tab.Chew PO SCH (08:10)
[2018-07-23] MEDS: Insulin Regular, Human 100 Units/ML 3 ML Vial SUBCUT SCH ×3 (08:17→17:26)
[2018-07-23] MEDS: Metoprolol Succinate 50 MG Tab.ER PO SCH (08:18)
[2018-07-23] MEDS: amLODIPine 10 MG Tab PO SCH (08:20)
[2018-07-23] MEDS: Ondansetron 4 MG Tab.DIS PO PRN (16:04)
[2018-07-24] MEDS: Levothyroxine 75 MCG Tab PO SCH (09:32)
[2018-07-24] MEDS: Linezolid 600 MG Tab PO SCH ×2 (09:32→20:05)
[2018-07-24] MEDS: Metoprolol Succinate 50 MG Tab.ER PO SCH (09:32)
[2018-07-24] MEDS: Aspirin 325 MG Tab.EC PO SCH (09:33)
[2018-07-24] MEDS: Famotidine 20 MG Tab PO SCH (09:33)
[2018-07-24] MEDS: amLODIPine 10 MG Tab PO SCH (09:33)
[2018-07-24] MEDS: Calcium Carbonate 750 MG Tab.Chew PO SCH (09:34)
[2018-07-24] MEDS: Mupirocin Oint 22 GM Tube TOP SCH ×2 (09:35→20:13)
[2018-07-24] MEDS: Insulin Regular, Human 100 Units/ML 3 ML Vial SUBCUT SCH ×3 (09:43→20:11)
[2018-07-25] MEDS: Famotidine 20 MG Tab PO SCH (10:06)
[2018-07-25] MEDS: Linezolid 600 MG Tab PO SCH ×2 (10:06→21:16)
[2018-07-25] MEDS: Metoprolol Succinate 50 MG Tab.ER PO SCH (10:06)
[2018-07-25] MEDS: amLODIPine 10 MG Tab PO SCH (10:06)
[2018-07-25] MEDS: Calcium Carbonate 750 MG Tab.Chew PO SCH (10:07)
[2018-07-25] MEDS: Aspirin 325 MG Tab.EC PO SCH (10:07)
[2018-07-25] MEDS: Mupirocin Oint 22 GM Tube TOP SCH ×2 (10:08→21:42)
[2018-07-25] MEDS: Insulin Regular, Human 100 Units/ML 3 ML Vial SUBCUT SCH ×3 (10:08→17:09)
[2018-07-26 08:10] LABS: ANION GAP 10.2 mmol/L (10-20)
[2018-07-26] MEDS: Levothyroxine 75 MCG Tab PO SCH (09:23)
[2018-07-26] MEDS: Metoprolol Succinate 50 MG Tab.ER PO SCH (09:24)
[2018-07-26] MEDS: Famotidine 20 MG Tab PO SCH (09:24)
[2018-07-26] MEDS: Linezolid 600 MG Tab PO SCH ×2 (09:26→20:00)
[2018-07-26] MEDS: Aspirin 325 MG Tab.EC PO SCH (09:26)
[2018-07-26] MEDS: amLODIPine 10 MG Tab PO SCH (09:26)
[2018-07-26] MEDS: Mupirocin Oint 22 GM Tube TOP SCH ×2 (09:29→20:01)
[2018-07-26] MEDS: Calcium Carbonate 750 MG Tab.Chew PO SCH (09:30)
[2018-07-26] MEDS: Insulin Regular, Human 100 Units/ML 3 ML Vial SUBCUT SCH ×4 (09:30→17:43)
[2018-07-26] MEDS: Ondansetron 4 MG Tab.DIS PO PRN (10:25)
[2018-07-26] MEDS: Metoclopramide 10 MG Tab PO SCH (20:00)
[2018-07-27] MEDS: Mupirocin Oint 22 GM Tube TOP SCH ×2 (08:15→19:41)
[2018-07-27] MEDS: Aspirin 325 MG Tab.EC PO SCH (08:16)
[2018-07-27] MEDS: amLODIPine 10 MG Tab PO SCH (08:16)
[2018-07-27] MEDS: Famotidine 20 MG Tab PO SCH (08:17)
[2018-07-27] MEDS: Linezolid 600 MG Tab PO SCH ×2 (08:17→19:40)
[2018-07-27] MEDS: Metoclopramide 10 MG Tab PO SCH ×3 (08:17→19:40)
[2018-07-27] MEDS: Metoprolol Succinate 50 MG Tab.ER PO SCH (08:18)
[2018-07-27] MEDS: Insulin Regular, Human 100 Units/ML 3 ML Vial SUBCUT SCH ×3 (08:19→17:24)
[2018-07-27] MEDS: Calcium Carbonate 750 MG Tab.Chew PO SCH (08:21)
[2018-07-28] MEDS: Levothyroxine 75 MCG Tab PO SCH (06:25)
[2018-07-28] MEDS: Insulin Regular, Human 100 Units/ML 3 ML Vial SUBCUT SCH ×3 (09:18→17:48)
[2018-07-28] MEDS: Metoclopramide 10 MG Tab PO SCH ×3 (09:24→19:47)
[2018-07-28] MEDS: amLODIPine 10 MG Tab PO SCH (09:24)
[2018-07-28] MEDS: Metoprolol Succinate 50 MG Tab.ER PO SCH (09:24)
[2018-07-28] MEDS: Aspirin 325 MG Tab.EC PO SCH (09:24)
[2018-07-28] MEDS: Linezolid 600 MG Tab PO SCH ×2 (09:24→19:47)
[2018-07-28] MEDS: Famotidine 20 MG Tab PO SCH (09:25)
[2018-07-28] MEDS: Calcium Carbonate 750 MG Tab.Chew PO SCH (09:27)
[2018-07-28] MEDS: Mupirocin Oint 22 GM Tube TOP SCH ×2 (09:30→19:47)
[2018-07-28] MEDS: Ondansetron 4 MG Tab.DIS PO PRN (20:44)
[2018-07-29] MEDS: Mupirocin Oint 22 GM Tube TOP SCH ×2 (09:58→19:41)
[2018-07-29] MEDS: Famotidine 20 MG Tab PO SCH (09:59)
[2018-07-29] MEDS: Aspirin 325 MG Tab.EC PO SCH (09:59)
[2018-07-29] MEDS: Metoprolol Succinate 50 MG Tab.ER PO SCH (09:59)
[2018-07-29] MEDS: amLODIPine 10 MG Tab PO SCH (09:59)
[2018-07-29] MEDS: Metoclopramide 10 MG Tab PO SCH ×2 (09:59→11:47)
[2018-07-29] MEDS: Linezolid 600 MG Tab PO SCH ×2 (10:00→19:41)
[2018-07-29] MEDS: Calcium Carbonate 750 MG Tab.Chew PO SCH (10:01)
[2018-07-29] MEDS: Insulin Regular, Human 100 Units/ML 3 ML Vial SUBCUT SCH ×3 (10:01→17:33)
[2018-07-30] MEDS: Levothyroxine 75 MCG Tab PO SCH (06:16)
[2018-07-30] MEDS: Aspirin 325 MG Tab.EC PO SCH (07:51)
[2018-07-30] MEDS: Famotidine 20 MG Tab PO SCH (07:51)
[2018-07-30] MEDS: amLODIPine 10 MG Tab PO SCH (07:51)
[2018-07-30] MEDS: Mupirocin Oint 22 GM Tube TOP SCH ×2 (07:51→20:21)
[2018-07-30] MEDS: Linezolid 600 MG Tab PO SCH ×2 (07:51→20:17)
[2018-07-30] MEDS: Metoprolol Succinate 50 MG Tab.ER PO SCH (07:51)
[2018-07-30] MEDS: Insulin Regular, Human 100 Units/ML 3 ML Vial SUBCUT SCH ×3 (07:52→17:21)
[2018-07-30] MEDS: Calcium Carbonate 750 MG Tab.Chew PO SCH (07:52)
[2018-07-30] MEDS: Ondansetron 4 MG Tab.DIS PO PRN (11:40)
[2018-07-31] MEDS: Ondansetron 4 MG Tab.DIS PO PRN ×2 (09:42→18:45)
[2018-07-31] MEDS: Linezolid 600 MG Tab PO SCH ×2 (09:44→19:45)
[2018-07-31] MEDS: amLODIPine 10 MG Tab PO SCH (09:44)
[2018-07-31] MEDS: Aspirin 325 MG Tab.EC PO SCH (09:46)
[2018-07-31] MEDS: Mupirocin Oint 22 GM Tube TOP SCH ×2 (09:46→19:43)
[2018-07-31] MEDS: Famotidine 20 MG Tab PO SCH (09:47)
[2018-07-31] MEDS: Insulin Regular, Human 100 Units/ML 3 ML Vial SUBCUT SCH ×3 (09:47→17:17)
[2018-07-31] MEDS: Metoprolol Succinate 50 MG Tab.ER PO SCH (09:48)
[2018-07-31] MEDS: Calcium Carbonate 750 MG Tab.Chew PO SCH (09:48)
[2018-08-01] MEDS: Ondansetron 4 MG Tab.DIS PO PRN ×2 (06:42→16:08)
[2018-08-01] MEDS: amLODIPine 10 MG Tab PO SCH (07:25)
[2018-08-01] MEDS: Metoprolol Succinate 50 MG Tab.ER PO SCH (07:25)
[2018-08-01] MEDS: Levothyroxine 75 MCG Tab PO SCH (07:25)
[2018-08-01] MEDS: Aspirin 325 MG Tab.EC PO SCH (07:25)
[2018-08-01] MEDS: Famotidine 20 MG Tab PO SCH (07:26)
[2018-08-01] MEDS: Linezolid 600 MG Tab PO SCH ×2 (07:26→20:10)
[2018-08-01] MEDS: Calcium Carbonate 750 MG Tab.Chew PO SCH (07:27)
[2018-08-01] MEDS: Insulin Regular, Human 100 Units/ML 3 ML Vial SUBCUT SCH ×3 (07:43→18:09)
[2018-08-01] MEDS: Mupirocin Oint 22 GM Tube TOP SCH ×2 (07:44→20:11)
[2018-08-02 06:58] LABS: ANION GAP 10.3 mmol/L (10-20)
[2018-08-02] MEDS ORDERED: Sodium Chloride 0.9% 1,000 ML IV ONE (07:59)
[2018-08-02] MEDS: Insulin Regular, Human 100 Units/ML 3 ML Vial SUBCUT SCH ×3 (09:06→17:40)
[2018-08-02] MEDS: amLODIPine 10 MG Tab PO SCH (09:36)
[2018-08-02] MEDS: Aspirin 325 MG Tab.EC PO SCH (09:36)
[2018-08-02] MEDS: Metoprolol Succinate 50 MG Tab.ER PO SCH (09:36)
[2018-08-02] MEDS: Linezolid 600 MG Tab PO SCH ×2 (09:36→20:23)
[2018-08-02] MEDS: Famotidine 20 MG Tab PO SCH (09:36)
[2018-08-02] MEDS: Mupirocin Oint 22 GM Tube TOP SCH ×2 (09:38→20:24)
[2018-08-02] MEDS: Calcium Carbonate 750 MG Tab.Chew PO SCH (09:38)
[2018-08-03] MEDS: Levothyroxine 75 MCG Tab PO SCH (06:16)
[2018-08-03] MEDS: Aspirin 325 MG Tab.EC PO SCH ×2 (06:17→07:20)
[2018-08-03] MEDS: Linezolid 600 MG Tab PO SCH ×3 (06:17→21:52)
[2018-08-03] MEDS: Metoprolol Succinate 50 MG Tab.ER PO SCH ×2 (06:18→07:22)
[2018-08-03] MEDS: Famotidine 20 MG Tab PO SCH ×2 (06:19→07:23)
[2018-08-03] MEDS: amLODIPine 10 MG Tab PO SCH ×2 (06:20→07:21)
[2018-08-03] MEDS: Insulin Regular, Human 100 Units/ML 3 ML Vial SUBCUT SCH ×3 (07:20→17:46)
[2018-08-03] MEDS: Mupirocin Oint 22 GM Tube TOP SCH (07:20)
[2018-08-03] MEDS: Calcium Carbonate 750 MG Tab.Chew PO SCH (13:04)
[2018-08-03] MEDS: Ondansetron 4 MG Tab.DIS PO PRN (17:40)
[2018-08-04] MEDS: Metoprolol Succinate 50 MG Tab.ER PO SCH (08:49)
[2018-08-04] MEDS: Famotidine 20 MG Tab PO SCH (08:49)
[2018-08-04] MEDS: Linezolid 600 MG Tab PO SCH ×2 (08:51→20:43)
[2018-08-04] MEDS: Aspirin 325 MG Tab.EC PO SCH (08:51)
[2018-08-04] MEDS: amLODIPine 10 MG Tab PO SCH (08:51)
[2018-08-04] MEDS: Insulin Regular, Human 100 Units/ML 3 ML Vial SUBCUT SCH ×3 (08:57→17:02)
[2018-08-04] MEDS: Calcium Carbonate 750 MG Tab.Chew PO SCH (12:47)
[2018-08-05] MEDS: Ondansetron 4 MG Tab.DIS PO PRN ×2 (02:31→15:20)
[2018-08-05] MEDS: Levothyroxine 75 MCG Tab PO SCH (06:17)
[2018-08-05] MEDS: Metoprolol Succinate 50 MG Tab.ER PO SCH (08:08)
[2018-08-05] MEDS: amLODIPine 10 MG Tab PO SCH (08:09)
[2018-08-05] MEDS: Linezolid 600 MG Tab PO SCH ×2 (08:10→20:20)
[2018-08-05] MEDS: Aspirin 325 MG Tab.EC PO SCH (08:10)
[2018-08-05] MEDS: Famotidine 20 MG Tab PO SCH (08:10)
[2018-08-05] MEDS: Insulin Regular, Human 100 Units/ML 3 ML Vial SUBCUT SCH ×3 (08:13→17:25)
[2018-08-05] MEDS: Calcium Carbonate 750 MG Tab.Chew PO SCH (11:18)
[2018-08-05] MEDS ORDERED: Promethazine 25 MG Tab PO PRN (19:13)
[2018-08-06] MEDS: amLODIPine 10 MG Tab PO SCH (07:20)
[2018-08-06] MEDS: Aspirin 325 MG Tab.EC PO SCH (07:20)
[2018-08-06] MEDS: Megestrol 40 MG Tab PO SCH (07:20)
[2018-08-06] MEDS: Famotidine 20 MG Tab PO SCH (07:20)
[2018-08-06] MEDS: Linezolid 600 MG Tab PO SCH ×2 (07:20→20:02)
[2018-08-06] MEDS: Metoprolol Succinate 50 MG Tab.ER PO SCH (07:21)
[2018-08-06] MEDS: Insulin Glargine,Human Rec. Analog 100 Units/ML 3 ML Pen SUBCUT SCH (07:21)
[2018-08-06] MEDS: Calcium Carbonate 750 MG Tab.Chew PO SCH (12:13)
[2018-08-06] MEDS: Ondansetron 4 MG Tab.DIS PO PRN (16:57)
[2018-08-07] MEDS: Levothyroxine 75 MCG Tab PO SCH (06:07)
[2018-08-07] MEDS: Insulin Glargine,Human Rec. Analog 100 Units/ML 3 ML Pen SUBCUT SCH (06:07)
[2018-08-07] MEDS: Aspirin 325 MG Tab.EC PO SCH (06:13)
[2018-08-07] MEDS: amLODIPine 10 MG Tab PO SCH (06:13)
[2018-08-07] MEDS: Metoprolol Succinate 50 MG Tab.ER PO SCH (06:14)
[2018-08-07] MEDS: Megestrol 40 MG Tab PO SCH (06:14)
[2018-08-07] MEDS: Linezolid 600 MG Tab PO SCH (06:14)
[2018-08-07] MEDS: Famotidine 20 MG Tab PO SCH (06:15)
--- NOTE | 2018-08-07 13:38 | PCM.DCSUM1 ---
Discharge Summary - Hospital Course HPI Initial Comments: Melvin Hidalgo is a 82 yo male with a history of swelling, pain, and some drainage from the left ear for at least 6 months. He was treated with various courses of antibiotics and had culture which grew out methicillin-sensitive Staph aureus. He apparently had incision and drainage of the area in [facility] in September 2017. He had persistent swelling following. Dr. Villafuerte ordered a CT scan of the head which showed soft tissue edema and phlegmon in the lateral part of the ear canal and posterior auricular area. The patient was evaluated by Dr. Aurelio Weinberg in ENT, and upon examination the patient was noted to have an open wound on the posterior auricular area. 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 He was temporized with a vacuum- assisted closure device while final pathology was obtained. Given infection over the tumor, he was also kept on antibiotics to minimize reconstruction contamination. 1 week post op from that operation final margins were negative for tumor involvement and he was taken back to the operating room for a left latissimus free flap and skin graft reconstruction of the ablative defect. He tolerated both operations well. From a neurological standpoint he had no acute issues. From a cardiovascular standpoint his hypertension was managed and remained stable. He had no acute cardiac problems. From a GI standpoint he was tolerating a diabetic diet. He was kept on sliding scale insulin as well as basal insulin which he tolerated well. He was kept also on Synthroid for hypothyroidism. He did have some constipation and was started on a bowel regimen consisting of MiraLAX, Senokot and suppositories but was able to have a bowel movement uneventfully. Pain was controlled with hydrocodone orally once he was weaned from IV medications. Wound cultures initially showed staph colonization but second cultures showed stenotrophomonas as well as vancomycin resistant enterococcus. Infectious disease consultation was sought and his antibiotics were switched to Bactrim and linezolid oral. His kidney function was closely followed given the Bactrim therapy and his creatinine did increase slightly but it was felt acceptable given the limited options for antibiotic therapy with this particular colonization. From a wound healing standpoint his flap remained viable and healthy-appearing with good take of the skin graft. There was no wound breakdown or infection. Although, he did have some neck swelling and the CT scan was thought which showed a small seroma. This was drained at the bedside. There were no complications during the procedure. The back incision remained intact and the drains had consistent serous output and therefore 1 of the back drains was left in place. Patient was sent to [facility] at [facility] for rehab for weakness and deconditioning. 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 transplanted heart: [place] heart Qualified Code(s): I25.10 - Atherosclerotic heart disease of [place] coronary artery without angina pectoris (5) Chronic obstructive pulmonary disease SNOMED Code(s): 58568824 ICD Code: J44.9 - CHRONIC OBSTRUCTIVE PULMONARY DISEASE, UNSPECIFIED Status : Chronic Current Visit: No Qualifiers: COPD type: unspecified COPD Qualified Code(s): J44.9 - Chronic obstructive pulmonary disease, unspecified (6) DM2 (diabetes mellitus, type 2) SNOMED Code(s): 04423838 ICD Code: E11.9 - TYPE 2 DIABETES MELLITUS WITHOUT COMPLICATIONS Status: Chronic Current Visit: No Qualifiers: Diabetes mellitus residential insulin use: with lobsterman use Diabetes mellitus complication status: with circulatory complication Diabetes mellitus complication detail: with other circulatory complications Qualified Code(s): E11.59 - Type 2 diabetes mellitus with other circulatory complications; Z79.4 - MCFP (current) use of insulin (7) Essential (primary) hypertension SNOMED Code(s): 84165462 ICD Code: I10 - ESSENTIAL (PRIMARY) HYPERTENSION Status: Chronic Current Visit: No (8) Hypothyroidism due to acquired atrophy of thyroid SNOMED Code(s): 602589065 ICD Code: E03.4 - ATROPHY OF THYROID (ACQUIRED) Status: Chronic Current Visit: No (9) Peripheral vascular disease SNOMED Code(s): 733373182 ICD Code: I73.9 - PERIPHERAL VASCULAR DISEASE, UNSPECIFIED Status: Chronic Current Visit: No - Patient Summary/Data Consults: Consultations 07/11/18 12:46 Consult to Case Management [CONS] Routine 07/26/18 11:55 Consult to Physical Therapy [PT Evaluation and Treatment] [CONS] Routine 07/26/18 11:56 Consult to Speech Language Pathology [TRAINING AND DEVELOPMENT OFFICER Evaluation and Treatment] [CONS] Routine OT Evaluation and Treatment [CONS] Routine 07/26/18 11:57 Consult to Dietary [Consult to Bias Cutter] [CONS] Routine 08/02/18 10:13 Consult to Pharmacy [CONS] Routine Labs Pending at D/C: None Recommended Follow-up Testing/Procedures: Weekly labs per Infectious Disease [facility] Course: Patient did well during his first few days well on swing bed. Over the course of time the patient had difficulty with eating foods that were not conducive with his appetite. The patient began to decondition somewhat and started having trouble participating with physical and occupational therapy. The patient continues to exhibit signs of significant depression and seems to have some times and aggressive behavior with nursing staff. The patient has refused some medications while on swing bed. The patient's blood sugars consistently ran 180- 200, therefore the sliding scale insulin was discontinued as well as the Accu- Cheks. The patient was started on Lantus for basal coverage. This will be adjusted in accordance with the patient's blood sugars, however with the patient 's poor nutritional intake I do not think we will need to make any adjustments. The patient did start attending radiation therapy last week at [facility].The radiation seems to have weakened the patient considerably. The patient was seen by physical, occupational, nutrition, dietary, speech services all well on swing bed. The patient seems to do okay with drinking ensure protein drinks 3 times a day. The patient did have some issues with bowels due to his poor nutritional intake. The patient did have a CT scan of the abdomen which did not show any etiology. Patient also did require daily bowel regimen medication which seemed to help somewhat. The patient will require home care services for his weakness and deconditioning and medication management. The patient will also require physical therapy for his weakness and deconditioning while he is in the assisted living facility. At the time of discharge, the patient is still considerably weak secondary to radiation therapy. The patient's diet is not optimal however if he does continue with the ensure drinks we should hopefully see some improvement. - Patient Instructions Diet: No Alcoholic Beverages Diet, Other: Per Speech recommentation Activity: As Tolerated Driving: Do Not Drive Showering/Bathing: May Shower Notify Provider of: Fever, Increased Pain, Nausea and/or Vomiting - Discharge Plan *PRESCRIPTION DRUG MONITORING PROGRAM REVIEWED*: Not Applicable *COPY OF PRESCRIPTION DRUG MONITORING REPORT IN PATIENT USHA: Not Applicable Home Medications: Home Meds Albuterol [Proventil HFA] 2 puff INH Q4H PRN 07/11/18 [History] Aspirin [Ecotrin] 325 mg PO DAILY 07/11/18 [History] Bisacodyl [Dulcolax] 10 mg RC DAILY PRN 07/11/18 [History] Calcium Carbonate 1,000 mg PO DAILY 07/11/18 [History] Cilostazol 100 mg PO BIDMEALS 07/11/18 [History] Famotidine 20 mg PO DAILY 07/11/18 [History] Hydrocodone/Acetaminophen [Hydrocodon-Acetaminophen 5-325] 1 - 2 tab PO Q4HR PRN 07/11/18 [History] Levothyroxine 75 mcg PO Q48H 07/11/18 [History] Linezolid 600 mg PO Q12HR 07/11/18 [History] Metoprolol Succinate 100 mg PO DAILY 07/11/18 [History] Oxybutynin [Oxybutynin ER] 10 mg PO DAILY 07/11/18 [History] Polyethylene Glycol 3350 1 packet PO DAILY PRN 07/11/18 [History] Sennosides/Docusate Sodium [Senna-Docusate Sodium] 1 tab PO DAILY PRN 07/11/18 [ History] Sulfamethoxazole/Trimethoprim [Sulfamethoxazole-Tmp Ds Tablet] 1 tab PO Q12HR [History] amLODIPine Besylate [Amlodipine Besylate] 10 mg PO DAILY 07/11/18 [History] traZODone HCl [Trazodone HCl] 50 mg PO BEDTIME PRN 07/11/18 [History] Insulin Glarg,Human.Rec.Analog [Lantus Solostar] 10 units SUBCUT DAILY pen 10/14 [Rx] Magnesium Hydroxide [Milk of Magnesia] 30 ml PO DAILY PRN cup 08/07/18 [Rx] Non-Formulary Medication [NF Drug] 1 each PO BID each 08/07/18 [Rx] Ondansetron [Zofran ODT] 4 mg PO Q6H PRN tab.dis 08/07/18 [Rx] Promethazine [Phenergan] 25 mg PO Q6H PRN tablet 08/07/18 [Rx] Referrals: Chetna Law, CARDIAC MONITOR [Ordering Only Provider] - - Discharge Summary/Plan Comment DC Time >30 min.: Yes Discharge Summary/Plan Comment: Patient will be discharged today to the [facility] facility. Please see the discharge medication reconciliation her current medications. The patient has the medical necessity to continue with physical therapy through home health services due to his profound weakness and deconditioning secondary to radiation treatment. The patient is homebound outside of needing to have radiation treatments daily at a [facility] in [place]. The patient requires assistance with activities of daily living and taking his medications due to his profound weakness secondary to radiation treatments. The patient will need to schedule a one-week follow-up posthospitalization appointment with Chetna Law at the [facility]. NOTE: This patient was seen and examined by me as an provider - General Info Date of Service: 08/07/18 Admission Dx/Problem (Free Text: Admission Diagnosis/Problem Admission Diagnosis/Problem Squamous cell carcinoma Weakness Deconditioning s/p Skin graft Subjective Update: Patient offers no specific complaints at the time of discharge. He is pain free. He states his appetite continue to be poor. He does feel weak. Otherwise, no chest pain or SOB. His bowels seem to be doing ok. He is urinating without any problems. Functional Status: Reports: Pain Controlled, Ambulating, Urinating. Denies: Tolerating Diet - Review of Systems General: Reports: Weakness, Fatigue. Denies: Fever Pulmonary: Denies: Shortness of Breath, Sputum Cardiovascular: Denies: Chest Pain, Palpitations Gastrointestinal: Denies: Abdominal Pain, Nausea, Vomiting Skin: Reports: No Symptoms Neurological: Denies: Dizziness, Headache - Patient Data Vitals - Most Recent: Last Vital Signs Temp 36.7 C 08/07/18 05:06 Pulse 76 08/07/18 06:14 Resp 18 08/07/18 05:06 BP 152/66 H 08/07/18 06:14 Pulse Ox 95 08/07/18 05:06 Weight - Most Recent: 91.263 kg I&O - Last 24 hours: Intake & Output 08/06/18 08/07/18 08/07/18 22:59 06:59 14:59 Intake Total 120 Balance 120 Med Orders - Current: Current Medications Hydrocodone Bitart/Acetaminophen ([place] 325-5 Mg) 1 tab PO Q4H PRN PRN Reason: pain Al Hydroxide/Mg Hydroxide (Mag-Al Plus) 30 ml PO Q4H PRN PRN Reason: Indigestion Last Admin: 07/15/18 08:22 Dose: 30 ml Albuterol (Proventil Neb Soln) 2.5 mg INH Q4H PRN PRN Reason: WHEEZING/SHORTNESS OF BREATH Amlodipine Besylate (Norvasc) 10 mg PO DAILY [facility] Last Admin: 08/07/18 06:13 Dose: 10 mg Aspirin (Ecotrin) 325 mg PO DAILY [facility] Last Admin: 08/07/18 06:13 Dose: 325 mg Bisacodyl (Dulcolax) 10 mg RECTAL DAILY PRN PRN Reason: constipation Calcium Carbonate/Glycine (Tums Extra Strength) 1,500 mg PO DAILY@1200 [facility] Last Admin: 08/06/18 12:13 Dose: 750 mg Cilostazol (Pletal) 100 mg PO BIDAC [facility] Last Admin: 08/07/18 06:07 Dose: 100 mg Famotidine (Pepcid) 20 mg PO DAILY [facility] Last Admin: 08/07/18 06:15 Dose: 20 mg Insulin Glargine (Lantus Solostar) 10 units SUBCUT DAILY [facility] Last Admin: 08/07/18 06:07 Dose: 10 units Levothyroxine Sodium (Levothyroxine) 75 mcg PO Q48H [facility] Last Admin: 08/07/18 06:07 Dose: 75 mcg Linezolid (Zyvox) 600 mg PO BID [facility] Stop: 08/14/18 08:01 Last Admin: 08/07/18 06:14 Dose: 600 mg Magnesium Hydroxide (Milk Of Magnesia) 30 ml PO DAILY PRN PRN Reason: Constipation Last Admin: 07/19/18 17:23 Dose: 30 ml Megestrol Acetate (Megace) 40 mg PO DAILY [facility] Last Admin: 08/07/18 06:14 Dose: 40 mg Metoprolol Succinate (Toprol Xl) 100 mg PO DAILY [facility] Last Admin: 08/07/18 06:14 Dose: 100 mg Minocycline 100mg 1 each PO BID [facility] Last Admin: 08/07/18 06:16 Dose: 1 each Ondansetron HCl (Zofran Odt) 4 mg PO Q6H PRN PRN Reason: Nausea/Vomiting Last Admin: 08/06/18 16:57 Dose: 4 mg Polyethylene Glycol (Miralax) 17 gm PO DAILY PRN PRN Reason: CONSTIPATION Last Admin: 07/21/18 08:37 Dose: 17 gm Promethazine HCl (Phenergan) 25 mg PO Q6H PRN PRN Reason: Nausea/Vomiting Last Admin: 08/06/18 07:20 Dose: 25 mg Senna/Docusate Sodium (Senna Plus) 1 tab PO DAILY PRN PRN Reason: CONSTIPATION Last Admin: 07/22/18 20:47 Dose: 1 tab Sodium Chloride (Saline Flush) 10 ml FLUSH ASDIRECTED PRN PRN Reason: Keep Vein Open Last Admin: 07/21/18 01:04 Dose: 10 ml Trazodone HCl (Trazodone) 50 mg PO BEDTIME PRN PRN Reason: INSOMNIA Discontinued Medications Calcium Carbonate/Glycine (Tums Extra Strength) 1,500 mg PO DAILY [facility] Last Admin: 08/02/18 09:38 Dose: 1,500 mg [facility] Last Admin: 07/12/18 17:58 Dose: 1 mg Cilostazol (Pletal) 100 mg PO BID [facility] Hydralazine HCl (Apresoline) 50 mg PO BID [facility] Last Admin: 07/19/18 08:51 Dose: Not Given Sodium Chloride (Normal Saline) 1,000 mls @ 200 mls/hr IV ASDIRECTED [facility] Stop: 07/18/18 22:14 Last Admin: 07/17/18 22:40 Dose: 200 mls/hr Sodium Chloride (Normal Saline) 1,000 mls @ 999 mls/hr IV ONETIME ONE Stop: 07/19/18 08:46 Last Admin: 07/19/18 08:48 Dose: 999 mls/hr Sodium Chloride (Normal Saline) 1,000 mls @ 999 mls/hr IV ONETIME ONE Stop: 07/19/18 08:46 Last Admin: 07/19/18 10:30 Dose: 999 mls/hr Sodium Chloride (Normal Saline) 1,000 mls @ 999 mls/hr IV ONETIME ONE Stop: 08/02/18 08:59 Last Admin: 08/02/18 09:07 Dose: 999 mls/hr Insulin Aspart (Novolog Mix 70-30) 15 - 18 unit SUBCUT ACDINNER [facility] Last Admin: 07/12/18 17:53 Dose: Not Given Insulin Aspart (Novolog Mix 70-30) 20 - 25 unit SUBCUT ACBREAKFAST [facility] Last Admin: 07/12/18 06:25 Dose: Not Given Insulin Human Regular (Humulin R) 0 unit SUBCUT TIDMEALS [facility]; Protocol Last Admin: 08/05/18 17:25 Dose: Not Given Iopamidol (Isovue-300 (61%)) 100 ml IVPUSH ONETIME ONE Stop: 07/19/18 07:51 Last Admin: 07/19/18 08:12 Dose: 100 ml Linezolid (Zyvox) 600 mg PO Q12HR [facility] Stop: 08/04/18 20:01 Last Admin: 07/12/18 08:06 Dose: 600 mg Metoclopramide HCl (Reglan) 5 mg IVPUSH Q8H [facility] Stop: 07/21/18 17:01 Last Admin: 07/21/18 17:21 Dose: 5 mg Metoclopramide HCl (Reglan) 10 mg PO TID [facility] Stop: 07/29/18 13:00 Last Admin: 07/29/18 11:47 Dose: 10 mg Mupirocin (Bactroban Oint) 0 gm TOP BID [facility] Last Admin: 08/03/18 07:20 Dose: Not Given Cilostazol 100 Mg 100 mg PO BIDAC [facility] Last Admin: 07/11/18 17:54 Dose: 100 mg Cilostazol 100mg 1 each PO BIDAC [facility] Last Admin: 07/12/18 06:44 Dose: 1 each Ondansetron HCl (Zofran Odt) 4 mg PO Q8H PRN PRN Reason: nausea Last Admin: 07/16/18 09:50 Dose: 4 mg Oxybutynin Chloride (Oxybutynin Er) 10 mg PO DAILY [facility] Last Admin: 07/19/18 08:51 Dose: Not Given Trimethoprim/Sulfamethoxazole (Septra Ds) 1 tab PO Q12HR [facility] Stop: 08/04/18 20:01 Last Admin: 07/12/18 08:03 Dose: 1 tab Trimethoprim/Sulfamethoxazole (Septra Ds) 1 tab PO BID [facility] Stop: 08/14/18 08:01 Last Admin: 07/19/18 08:50 Dose: 1 tab - Exam General: Reports: Alert, Oriented, Cooperative, No Acute Distress Lungs: Reports: Clear to Auscultation, Normal Respiratory Effort, Decreased Breath Sounds Cardiovascular: Reports: Regular Rate, Regular Rhythm GI/Abdominal Exam: Normal Bowel Sounds, Soft, Non-Tender Extremities: Normal Inspection Skin: Reports: Warm, Dry, Intact Neurological: Reports: No New Focal Deficit *Q Meaningful Use (DIS) - VTE *Q VTE Mechanical Contraindications *Q: At Risk for Falls
== END 2018-08-07 15:45 | disposition home health service (06) | DRG 948 ==
LOC: VM.MS 13:25
PROVIDERS: ADMIT Nurse Practitioner Family; ATTEND Nurse Practitioner Family
DX: R53.1 Weakness (principal); I25.10 Atherosclerotic heart disease of native coronary artery without angina pectoris; E11.9 Type 2 diabetes mellitus without complications; I73.9 Peripheral vascular disease, unspecified; E78.2 Mixed hyperlipidemia; J44.9 Chronic obstructive pulmonary disease, unspecified; C44.229 Squamous cell carcinoma of skin of left ear and external auricular canal; H66.42 Suppurative otitis media, unspecified, left ear; E03.4 Atrophy of thyroid (acquired); I10 Essential (primary) hypertension; I48.91 Unspecified atrial fibrillation; K59.00 Constipation, unspecified; K80.20 Calculus of gallbladder without cholecystitis without obstruction; Z79.899 Other long term (current) drug therapy; Z79.4 Long term (current) use of insulin; Z95.5 Presence of coronary angioplasty implant and graft; Z87.891 Personal history of nicotine dependence; Z92.3 Personal history of irradiation
CPT/HCPCS: 36415; 73200; 74177; 80053; 82150; 82962; 83690; 85008; 85025; 85045; 92526-GN; 92610-GN; 97110-GP; 97116-GP; 97161-GP; 97165-GO; 97168-GO; 97530-GP; 97535-GO; A9270-GY; J1815-GY; J2765; J7030; J7050; Q9967

== ENCOUNTER 2018-08-12 09:56 | Emergency (ER) | payer MEDICARE, BC ==
[2018-08-12] MEDS ORDERED: Iopamidol 612 MG/ML 100 ML Bottle IVPUSH ONE (10:23)
[2018-08-12] MEDS ORDERED: Sodium Chloride 0.9% 10 ML Syringe FLUSH PRN (10:24)
--- NOTE | 2018-08-12 10:48 | EDM.PDOC ---
ED HPI GENERAL MEDICAL PROBLEM - General Chief Complaint: Gastrointestinal Problem Stated Complaint: Abdominal Pain Time Seen by Provider: 08/12/18 10:04 Source of Information: Reports: Patient, Family, RN, RN Notes Reviewed History Limitations: Reports: No Limitations - History of Present Illness INITIAL COMMENTS - FREE TEXT/NARRATIVE: Patient presents to the ED at [facility] complaining of generalized abdominal pain. This patient is very well known to be. The abdominal pain has been present for the past few weeks. 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 He has continuously been on abx therapy. Patient was on chemo and just started radiation last week. He was been ill. He has a very poor appetite. PO intake has been minimal. UO ok. Patient feels SOB, not sure if this is 2/2 abdominal pain. Patient recently moved to an assisted living facility about 5 days ago when he was discharged from [facility]. Duration: Chronic - Related Data Allergies Allergy/AdvReac Type Severity Reaction Status Date / Time No Known Allergies Allergy Verified 08/12/18 10:16 Home Meds: Home Meds RX: Albuterol [Proventil HFA] 2 puff INH Q4H PRN 07/11/18 [History] RX: Aspirin [Ecotrin] 325 mg PO DAILY 07/11/18 [History] RX: Bisacodyl [Dulcolax] 10 mg RC DAILY PRN 07/11/18 [History] RX: Calcium Carbonate 1,000 mg PO DAILY 07/11/18 [History] RX: Cilostazol 100 mg PO BIDMEALS 07/11/18 [History] RX: Famotidine 20 mg PO DAILY 07/11/18 [History] RX: Hydrocodone/Acetaminophen [Hydrocodon-Acetaminophen 5-325] 1 - 2 tab PO Q4HR PRN 07/11/18 [History] RX: Levothyroxine 75 mcg PO Q48H 07/11/18 [History] RX: Linezolid 600 mg PO Q12HR 07/11/18 [History] RX: Metoprolol Succinate 100 mg PO DAILY 07/11/18 [History] RX: Oxybutynin [Oxybutynin ER] 10 mg PO DAILY 07/11/18 [History] RX: Polyethylene Glycol 3350 1 packet PO DAILY PRN 07/11/18 [History] RX: Sennosides/Docusate Sodium [Senna-Docusate Sodium] 1 tab PO DAILY PRN [History] RX: Sulfamethoxazole/Trimethoprim [Sulfamethoxazole-Tmp Ds Tablet] 1 tab PO Q12HR 07/11/18 [History] RX: amLODIPine Besylate [Amlodipine Besylate] 10 mg PO DAILY 07/11/18 [History] RX: traZODone HCl [Trazodone HCl] 50 mg PO BEDTIME PRN 07/11/18 [History] RX: Insulin Glarg,Human.Rec.Analog [Lantus Solostar] 10 units SUBCUT DAILY pen 08/07/18 [Rx] RX: Magnesium Hydroxide [Milk of Magnesia] 30 ml PO DAILY PRN cup 08/07/18 [Rx] RX: Non-Formulary Medication [NF Drug] 1 each PO BID each 08/07/18 [Rx] RX: Ondansetron [Zofran ODT] 4 mg PO Q6H PRN tab.dis 08/07/18 [Rx] RX: Promethazine [Phenergan] 25 mg PO Q6H PRN tablet 08/07/18 [Rx] Past Medical History Cardiovascular History: Reports: Afib, High Cholesterol, Hypertension, PVD, Stents Other Cardiovascular History: Coronoary Atherosclerosis of [place] Respiratory History: Reports: COPD, Sleep Apnea Endocrine/Metabolic History: Reports: Diabetes, Type II, Hypothyroidism Oncologic (Cancer) History: Reports: Squamous Cell Carcinoma - Infectious Disease History Infectious Disease History: Reports: VRE - Past Surgical History Other HEENT Surgeries/Procedures: Primary Squamous cell carcinoma of Left ear; Abscess of left external ear; Cancer of Left ear Cardiovascular Surgical History: Reports: Coronary Artery Stent Respiratory Surgical History: Reports: None Oncologic Surgical History: Reports: Other (See Below) Other Oncologic Surgeries/Procedures: skin graft to left ear from thigh Dermatological Surgical History: Reports: Skin Graft Social & Family History - Family History Family Medical History: Noncontributory - Tobacco Use Smoking Status *Q: Unknown Ever Smoked - Caffeine Use Caffeine Use: Reports: Coffee ED ROS GENERAL - Review of Systems Review Of Systems: See Below Constitutional: Reports: Weakness, Fatigue. Denies: Fever, Chills Respiratory: Reports: Shortness of Breath. Denies: Cough Cardiovascular: Denies: Chest Pain, Palpitations GI/Abdominal: Reports: Abdominal Pain, Decreased Appetite, Nausea, Vomiting. Denies: Diarrhea Skin: Reports: No Symptoms Neurological: Reports: No Symptoms ED EXAM, GI/ABD - Physical Exam Exam: See Below Exam Limited By: No Limitations General Appearance: Alert, No Apparent Distress Course - Vital Signs Last Recorded V/S: Last Vital Signs Temp 36.7 C 08/12/18 10:00 Pulse 82 08/12/18 11:34 Resp 18 08/12/18 11:34 BP 105/55 L 08/12/18 11:34 Pulse Ox 93 L 08/12/18 11:34 - Orders/Labs/Meds Orders: Active Orders 24 hr Category Date Time Status Chest Abdomen Pelvis w Cont [CT] Stat Exams 08/12/18 10:13 Taken Sodium Chloride 0.9% [Saline Flush] Med 08/12/18 10:24 Active 10 ml FLUSH ASDIRECTED PRN Peripheral IV Insertion Adult [OM.PC] Routine Oth 08/12/18 10:24 Ordered Medication Orders Sodium Chloride (Saline Flush) 10 ml FLUSH ASDIRECTED PRN PRN Reason: Keep Vein Open Labs: Laboratory Tests 08/12/18 08/12/18 Range/Units 10:59 10:59 WBC 12.9 H (4.0-10.0) x10^3/uL RBC 2.08 L (4.5-6.0) x10^6/uL Hgb 5.9 L* D (14.0-18.0) g/dL Hct 17.5 L (40.0-52.0) % MCV 84.1 (78.0-93.0) fL MCH 28.4 (26.0-32.0) pg MCHC 33.7 (32.0-36.0) g/dL RDW Coeff of Daniel 15.5 H (10.0-15.0) % Plt Count 134 (130-400) x10^3/uL Neut % (Auto) 44.4 L (50.0-80.0) % Lymph % (Auto) 49.9 (25.0-50.0) % Tyrrell % (Auto) 5.3 (2.0-11.0) % Eos % (Auto) 0.2 (0.0-4.0) % Baso % (Auto) 0.2 (0.2-1.2) % Sodium 131 L (136-145) mmol/L Potassium 4.7 (3.5-5.1) mmol/L Chloride 95 L (98-107) mmol/L Carbon Dioxide 25 (21-32) mmol/L Anion Gap 15.7 (10-20) mmol/L BUN 37 H (7-18) mg/dL Creatinine 2.3 H (0.70-1.30) mg/dL Est Cr Clr Drug Dosing 23.54 mL/min Estimated GFR (MDRD) 27 Glucose 163 H (74-106) mg/dL Calcium 8.4 L (8.5-10.1) mg/dL Corrected Calcium 9.60 (8.5-10.1) mg/dL Total Bilirubin 0.6 (0.2-1.0) mg/dL AST 20 (15-37) U/L ALT 24 (16-63) U/L Alkaline Phosphatase 84 (46-116) U/L Total Protein 5.5 L (6.4-8.2) g/dL Albumin 2.5 L (3.4-5.0) g/dL Globulin 3.0 Albumin/Globulin Ratio 0.83 Amylase 26 (25-115) U/L Lipase 99 (73-393) U/L Meds: Medications Generic Name Dose Route Start Last Admin Trade Name Freq PRN Reason Stop Dose Admin Sodium Chloride 10 ml 08/12/18 10:24 Saline Flush FLUSH ASDIRECTED PRN Keep Vein Open Discontinued Medications Generic Name Dose Route Start Last Admin Trade Name Freq PRN Reason Stop Dose Admin Iopamidol 100 ml 08/12/18 10:23 08/12/18 10:46 Isovue-300 (61%) IVPUSH 08/12/18 10:24 100 ml ONETIME ONE Administration - Radiology Interpretation Free Text/Narrative:: CT Chest/Abd/Pelvis w/contrast: Cholecystolithiasis; extensive vascular calcifications See scanned report in EMR CT Results Date: 08/12/18 CT Results Time: 11:26 Departure - Departure Time of Disposition: 11:48 Disposition: DC/Tfer to Acute Hospital 02 Condition: Fair Clinical Impression: Low hemoglobin, SOB (shortness of breath) Abdominal pain Qualifiers: Abdominal location: generalized Qualified Code(s): R10.84 - Generalized abdominal pain - Discharge Information *PRESCRIPTION DRUG MONITORING PROGRAM REVIEWED*: Not Applicable *COPY OF PRESCRIPTION DRUG MONITORING REPORT IN PATIENT USHA: Not Applicable Forms: Interfacility Transfer [facility] ED Communication - ED Communication Date/Time Date: 08/12/18 Time Called: 11:37 - Discussed Case With (1) Discussed Case With (1): [facility] - Conversation Summary Admitting Provider Agreed to Patient's Admission: Yes Patient Aware of Amendments fo Care Plan: Yes - Problem List Review Problem List Initiated/Reviewed/Updated: Yes - My Orders Last 24 Hours: My Active Orders 08/12/18 10:13 Chest Abdomen Pelvis w Cont [CT] Stat 08/12/18 10:24 Sodium Chloride 0.9% [Saline Flush] 10 ml FLUSH ASDIRECTED PRN Peripheral IV Insertion Adult [OM.PC] Routine - Assessment/Plan Last 24 Hours: My Active Orders 08/12/18 10:13 Chest Abdomen Pelvis w Cont [CT] Stat 08/12/18 10:24 Sodium Chloride 0.9% [Saline Flush] 10 ml FLUSH ASDIRECTED PRN Peripheral IV Insertion Adult [OM.PC] Routine Assessment:: Low Hemoglobin SCC of Left ear Abdominal Pain CHUY Dehydration Plan: Case discussed with Dr. Atkins, [facility]. Patient accepted in transfer. Patient will be sent BLS as he is stable at time of discharge. Patient is aware and agrees with transfer. Will proceed with POC.
[2018-08-12 11:31] LABS: ANION GAP 15.7 mmol/L (10-20)
[2018-08-12] MEDS ORDERED: Prochlorperazine 10 MG/2 ML SDV IV ONE (12:26)
== END 2018-08-12 13:10 | disposition short-term general hospital (02) ==
LOC: VM.ED 09:56
DX: K80.20 Calculus of gallbladder without cholecystitis without obstruction (principal); C44.229 Squamous cell carcinoma of skin of left ear and external auricular canal; E86.0 Dehydration; N17.9 Acute kidney failure, unspecified; R06.02 Shortness of breath; D64.9 Anemia, unspecified; I48.91 Unspecified atrial fibrillation; E78.00 Pure hypercholesterolemia, unspecified; I10 Essential (primary) hypertension; J44.9 Chronic obstructive pulmonary disease, unspecified; E03.9 Hypothyroidism, unspecified; Z79.899 Other long term (current) drug therapy
CPT/HCPCS: 36415; 71260; 74177; 80053; 82150; 83690; 85025; 96374; 99285; J0780; Q9967

== ENCOUNTER 2018-08-22 13:25 | Inpatient (IN) | payer MEDICARE, BC ==
[2018-08-22] MEDS ORDERED: Bisacodyl 10 MG Supp RECTAL PRN (14:29)
[2018-08-22] MEDS ORDERED: Promethazine 25 MG Tab PO PRN (14:29)
[2018-08-22] MEDS ORDERED: traZODone 50 MG Tab PO PRN (14:29)
[2018-08-22] MEDS ORDERED: Polyethylene Glycol 3350 Powder 17 GM Packet PO PRN (14:29)
[2018-08-22] MEDS ORDERED: Non-Formulary Medication 1 Each (Albuterol 2 PUFF) INH PRN (14:29)
[2018-08-22] MEDS ORDERED: Acetaminophen 325 MG Tab PO PRN (14:32)
[2018-08-22] MEDS ORDERED: Albuterol 0.083% 2.5 MG/3 ML Neb Soln NEB PRN (14:53)
[2018-08-22] MEDS: atorvaSTATin 10 MG Tab PO SCH (19:40)
[2018-08-22] MEDS: hydrALAZINE 25 MG Tab PO SCH (19:42)
[2018-08-22] MEDS: Insulin Glargine,Human Rec. Analog 100 Units/ML 3 ML Pen SUBCUT SCH (19:43)
[2018-08-23] MEDS: Magnesium Oxide 400 MG Tab PO SCH ×3 (05:19→20:06)
[2018-08-23] MEDS: Levothyroxine 75 MCG Tab PO SCH (06:39)
[2018-08-23] MEDS: Aspirin 325 MG Tab.EC PO SCH (07:24)
[2018-08-23] MEDS: Allopurinol 100 MG Tab PO SCH (07:24)
[2018-08-23] MEDS: Oxybutynin 5 MG Tab.ER PO SCH (07:24)
[2018-08-23] MEDS: hydrALAZINE 25 MG Tab PO SCH ×3 (07:24→20:06)
[2018-08-23] MEDS: Losartan 50 MG Tab PO SCH (07:24)
[2018-08-23] MEDS: Metoprolol Succinate 50 MG Tab.ER PO SCH (07:24)
[2018-08-23] MEDS: lamoTRIgine 100 MG Tab PO SCH (07:24)
[2018-08-23] MEDS: Famotidine 20 MG Tab PO SCH (07:25)
[2018-08-23] MEDS: Calcium Carbonate 750 MG Tab.Chew PO SCH (07:25)
[2018-08-23] MEDS: atorvaSTATin 10 MG Tab PO SCH (20:07)
[2018-08-23] MEDS: Insulin Glargine,Human Rec. Analog 100 Units/ML 3 ML Pen SUBCUT SCH (20:09)
[2018-08-24] MEDS: Metoprolol Succinate 50 MG Tab.ER PO SCH ×2 (06:39→07:20)
[2018-08-24] MEDS: Losartan 50 MG Tab PO SCH ×2 (06:41→07:19)
[2018-08-24] MEDS: Famotidine 20 MG Tab PO SCH ×2 (06:42→07:20)
[2018-08-24] MEDS: Aspirin 325 MG Tab.EC PO SCH ×2 (06:43→07:19)
[2018-08-24] MEDS: Oxybutynin 5 MG Tab.ER PO SCH ×2 (06:43→07:20)
[2018-08-24] MEDS: lamoTRIgine 100 MG Tab PO SCH ×2 (06:44→07:20)
[2018-08-24] MEDS: hydrALAZINE 25 MG Tab PO SCH ×4 (06:45→21:00)
[2018-08-24] MEDS: Calcium Carbonate 750 MG Tab.Chew PO SCH ×2 (06:45→07:20)
[2018-08-24] MEDS: Allopurinol 100 MG Tab PO SCH ×2 (06:46→07:20)
[2018-08-24] MEDS: Magnesium Oxide 400 MG Tab PO SCH ×2 (07:23→21:00)
--- NOTE | 2018-08-24 14:31 | PCM.HP ---
H&P History of Present Illness - General Date of Service: 08/22/18 Admit Problem/Dx: Admission Diagnosis/Problem Admission Diagnosis/Problem Weakness Deconditioning SCC of Left Ear Hypertension Source of Information: Patient, Family, Old Records, RN, RN Notes Reviewed History Limitations: Reports: No Limitations - History of Present Illness Initial Comments - Free Text/Narative: Patient is an 83 yo gentleman with a history of head and neck cancer, treated with radiation therapy. He presents to [facility] last week after he sustained a fall at the assisted living facility and developed a large area of ecchymosis on his right buttocks and upper thigh. Patient was found to be severely hypoxic and tachypneic. He was also tachycardic. Patient was found to have acute anemia and was treated with 2 units of PRBCs. Patient was admitted to [facility] in [place] for further treatment and evaluation. Patient has a history of CKD Stage III. Acute kidney injury was prerenal. At time of admission his Creat was 2.55 and eventually improved to 1.18 with IVF. Patient had acute on chronic CHF. Echo showed mildly reduced EF of 40-45%. Patient was diuresed with Lasix and on day of discharge was euvolemic. Losartan was rested as kidney function significantly improved. Patient has hyponatremia as well which improved. Acute on chronic anemia of chronic disease. Acute was from the hematoma on the right buttocks and thigh. He was transfused. FIT was negative. HgB stabilized without further bleeding. Patient has anorexia and poor oral intake. Calorie counts at OSH showed poor oral intake of calories. Patient refused placement of a feeding tube. Patient has a hx of head and neck cancer, treated with radiation therapy that was held while in the hospital and was resume after discharge. 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 Patient has DM Type II. Dose of insulins were adjusted while at [facility]. History of CAD. This remains stable. No chest pain while in [facility]. Patient has HTN and blood pressure medications were restarted. Has a history of ANNIE. Patient resumed on CPAP at night on discharge. History of nicotine dependence. Patient was discharge from [facility] today to our [facility] for PT/OT therapies. Patient is to resume radiation therapy. Will follow up with PCP in about a week. - Related Data Allergies/Adverse Reactions: Allergies Allergy/AdvReac Type Severity Reaction Status Date / Time No Known Allergies Allergy Verified 08/12/18 10:16 Home Medications: Home Meds Albuterol [Proventil HFA] 2 puff INH Q4H PRN 07/11/18 [History] Aspirin [Ecotrin] 325 mg PO DAILY 07/11/18 [History] Bisacodyl [Dulcolax] 10 mg RC DAILY PRN 07/11/18 [History] Calcium Carbonate 1,000 mg PO DAILY 07/11/18 [History] Cilostazol 100 mg PO BIDAC 07/11/18 [History] Famotidine 20 mg PO DAILY 07/11/18 [History] Levothyroxine 75 mcg PO Q48H 07/11/18 [History] Metoprolol Succinate 100 mg PO DAILY 07/11/18 [History] Oxybutynin [Oxybutynin ER] 10 mg PO DAILY 07/11/18 [History] Polyethylene Glycol 3350 1 packet PO DAILY PRN 07/11/18 [History] traZODone HCl [Trazodone HCl] 50 mg PO BEDTIME PRN 07/11/18 [History] Allopurinol [Zyloprim] 100 mg PO DAILY 08/22/18 [History] Insulin Glarg,Human.Rec.Analog [Lantus Solostar] 12 units SUBCUT BEDTIME [History] Losartan [Cozaar] 50 mg PO DAILY 08/22/18 [History] Magnesium Oxide 400 mg PO BID 08/22/18 [History] Promethazine [Phenergan] 25 mg PO Q6H PRN 08/22/18 [History] atorvaSTATin [Lipitor] 5 mg PO BEDTIME 08/22/18 [History] hydrALAZINE [Apresoline] 50 mg PO TID 08/22/18 [History] lamoTRIgine [Lamictal] 200 mg PO DAILY 08/22/18 [History] Past Medical History Cardiovascular History: Reports: Afib, High Cholesterol, Hypertension, PVD, Stents Other Cardiovascular History: Coronoary Atherosclerosis of [place] Respiratory History: Reports: COPD, Sleep Apnea Endocrine/Metabolic History: Reports: Diabetes, Type II, Hypothyroidism Oncologic (Cancer) History: Reports: Squamous Cell Carcinoma - Infectious Disease History Infectious Disease History: Reports: VRE - Past Surgical History Other HEENT Surgeries/Procedures: Primary Squamous cell carcinoma of Left ear; Abscess of left external ear; Cancer of Left ear Cardiovascular Surgical History: Reports: Coronary Artery Stent Respiratory Surgical History: Reports: None Oncologic Surgical History: Reports: Other (See Below) Other Oncologic Surgeries/Procedures: skin graft to left ear from thigh Dermatological Surgical History: Reports: Skin Graft Social & Family History - Family History Family Medical History: Noncontributory - Caffeine Use Caffeine Use: Reports: Coffee H&P Review of Systems - Review of Systems: Review Of Systems: See Below General: Reports: Weakness. Denies: Fever, Chills, Fatigue Pulmonary: Denies: Shortness of Breath, Cough Cardiovascular: Denies: Chest Pain, Palpitations Gastrointestinal: Reports: Nausea. Denies: Abdominal Pain, Vomiting Skin: Reports: No Symptoms Neurological: Reports: Difficulty Walking (chronic 2/2 radiation treatments), Weakness (2/2 radiation treatments) Hematologic/Lymphatic: Reports: Anemia Exam - Exam Exam: See Below - Vital Signs Vital Signs: Last Vital Signs Temp 37.3 C 08/24/18 06:00 Pulse 76 08/24/18 06:39 Resp 18 08/24/18 06:00 BP 157/77 H 08/24/18 06:45 Pulse Ox 93 L 08/24/18 06:00 Weight: 91.444 kg - Exam Quality Assessment: No: Skin Breakdown General: Alert, Oriented, Cooperative Lungs: Clear to Auscultation, Normal Respiratory Effort, Decreased Breath Sounds Cardiovascular: Regular Rate, Regular Rhythm, Normal S1, Normal S2 GI/Abdominal Exam: Soft, Non-Tender, Abnormal Bowel Sounds (Hypoactive) Extremities: Normal Inspection Peripheral Pulses: 2+: Radial (L), Radial (R) Skin: Warm, Dry, Intact, Other (Left face/auricle area graft healing well; no evidence of current infection) Neuro Extensive - Mental Status: Alert, Oriented x3 *Q Meaningful Use (ADM) - VTE *Q VTE Mechanical Contraindications *Q: At Risk for Falls - Problem List (1) Squamous cell carcinoma of left external ear SNOMED Code(s): 723649430 ICD Code: C44.229 - SQUAMOUS CELL CARCINOMA SKIN/ LEFT EAR AND EXTRN AURIC CANAL Status: Acute Priority: Medium Current Visit: No (2) Weakness SNOMED Code(s): 78074898 ICD Code: R53.1 - WEAKNESS Status: Acute Priority: Medium Current Visit : Yes (3) Physical deconditioning SNOMED Code(s): 97826846031007 ICD Code: R53.81 - OTHER MAL[place]ISE Status: Acute Priority: Medium Current Visit: Yes (4) Atherosclerotic heart disease of [place] coronary artery without angina pectoris SNOMED Code(s): 1649599605875 ICD Code: I25.10 - ATHSCL HEART DISEASE OF [place] CORONARY ARTERY W/O ANG PCTRS Status: Chronic Priority: Low Current Visit: No Qualifiers: [place] vs. transplanted heart: [place] heart Qualified Code(s): I25.10 - Atherosclerotic heart disease of [place] coronary artery without angina pectoris (5) Chronic obstructive pulmonary disease SNOMED Code(s): 06297826 ICD Code: J44.9 - CHRONIC OBSTRUCTIVE PULMONARY DISEASE, UNSPECIFIED Status : Chronic Priority: Low Current Visit: No Qualifiers: COPD type: unspecified COPD Qualified Code(s): J44.9 - Chronic obstructive pulmonary disease, unspecified (6) DM2 (diabetes mellitus, type 2) SNOMED Code(s): 39132031 ICD Code: E11.9 - TYPE 2 DIABETES MELLITUS WITHOUT COMPLICATIONS Status: Chronic Priority: Low Current Visit: No Qualifiers: Diabetes mellitus group home insulin use: with group home use Diabetes mellitus complication status: with circulatory complication Diabetes mellitus complication detail: with other circulatory complications Qualified Code(s): E11.59 - Type 2 diabetes mellitus with other circulatory complications; Z79.4 - superintendent container terminal (current) use of insulin (7) Essential (primary) hypertension SNOMED Code(s): 28954845 ICD Code: I10 - ESSENTIAL (PRIMARY) HYPERTENSION Status: Chronic Priority : Low Current Visit: No (8) Hypothyroidism due to acquired atrophy of thyroid SNOMED Code(s): 338629797 ICD Code: E03.4 - ATROPHY OF THYROID (ACQUIRED) Status: Chronic Priority : Low Current Visit: No (9) Peripheral vascular disease SNOMED Code(s): 413488488 ICD Code: I73.9 - PERIPHERAL VASCULAR DISEASE, UNSPECIFIED Status: Chronic Priority: Low Current Visit: No Problem List Initiated/Reviewed/Updated: Yes Orders Last 24hrs: Medication Orders Acetaminophen (Tylenol) 650 mg PO Q4H PRN PRN Reason: Pain (Mild 1-3)/fever Albuterol (Proventil Neb Soln) 2.5 mg NEB Q4HRRT PRN PRN Reason: SOB,WHEEZING Allopurinol (Zyloprim) 100 mg PO DAILY [facility] Last Admin: 08/24/18 07:20 Dose: Not Given Admin: 08/24/18 06:46 Dose: 100 mg Admin: 08/23/18 07:24 Dose: 100 mg Aspirin (Ecotrin) 325 mg PO DAILY [facility] Last Admin: 08/24/18 07:19 Dose: Not Given Admin: 08/24/18 06:43 Dose: 325 mg Admin: 08/23/18 07:24 Dose: 325 mg Atorvastatin Calcium (Lipitor) 5 mg PO BEDTIME [facility] Last Admin: 08/23/18 20:07 Dose: 5 mg Admin: 08/22/18 19:40 Dose: 10 mg Bisacodyl (Dulcolax) 10 mg RECTAL DAILY PRN PRN Reason: Constipation Calcium Carbonate/Glycine (Tums Extra Strength) 750 mg PO DAILY [facility] Last Admin: 08/24/18 07:20 Dose: Not Given Admin: 08/24/18 06:45 Dose: 750 mg Admin: 08/23/18 07:25 Dose: 750 mg Cilostazol (Pletal) 100 mg PO BIDAC [facility] Last Admin: 08/24/18 06:39 Dose: 100 mg Admin: 08/23/18 17:26 Dose: 100 mg Admin: 08/23/18 06:38 Dose: 100 mg Admin: 08/22/18 17:28 Dose: 100 mg Famotidine (Pepcid) 20 mg PO DAILY [facility] Last Admin: 08/24/18 07:20 Dose: Not Given Admin: 08/24/18 06:42 Dose: 20 mg Admin: 08/23/18 07:25 Dose: 20 mg Hydralazine HCl (Apresoline) 50 mg PO TID [facility] Last Admin: 08/24/18 11:34 Dose: Not Given Admin: 08/24/18 07:19 Dose: Not Given Admin: 08/24/18 06:45 Dose: 50 mg Admin: 08/23/18 20:06 Dose: 50 mg Admin: 08/23/18 12:35 Dose: 50 mg Admin: 08/23/18 07:24 Dose: 50 mg Admin: 08/22/18 19:42 Dose: 50 mg Insulin Glargine (Lantus Solostar) 12 units SUBCUT BEDTIME [facility] Last Admin: 08/23/18 20:09 Dose: 12 units Admin: 08/22/18 19:43 Dose: 12 units Lamotrigine (Lamotrigine) 200 mg PO DAILY [facility] Last Admin: 08/24/18 07:20 Dose: Not Given Admin: 08/24/18 06:44 Dose: 200 mg Admin: 08/23/18 07:24 Dose: 200 mg Levothyroxine Sodium (Levothyroxine) 75 mcg PO Q2D@0700 [facility] Last Admin: 08/23/18 06:39 Dose: 75 mcg Losartan Potassium (Cozaar) 50 mg PO DAILY [facility] Last Admin: 08/24/18 07:19 Dose: Not Given Admin: 08/24/18 06:41 Dose: 50 mg Admin: 08/23/18 07:24 Dose: 50 mg Magnesium Oxide (Magnesium Oxide) 400 mg PO BID [facility] Last Admin: 08/24/18 07:23 Dose: 400 mg Admin: 08/23/18 20:06 Dose: 400 mg Admin: 08/23/18 07:24 Dose: 400 mg Admin: 08/23/18 05:19 Dose: Not Given Metoprolol Succinate (Toprol Xl) 100 mg PO DAILY [facility] Last Admin: 08/24/18 07:20 Dose: Not Given Admin: 08/24/18 06:39 Dose: 100 mg Admin: 08/23/18 07:24 Dose: 100 mg Oxybutynin Chloride (Oxybutynin Er) 10 mg PO DAILY [facility] Last Admin: 08/24/18 07:20 Dose: Not Given Admin: 08/24/18 06:43 Dose: 10 mg Admin: 08/23/18 07:24 Dose: 10 mg Polyethylene Glycol (Miralax) 17 gm PO DAILY PRN PRN Reason: Constipation Promethazine HCl (Phenergan) 25 mg PO Q6H PRN PRN Reason: Nausea Trazodone HCl (Trazodone) 50 mg PO BEDTIME PRN PRN Reason: Insomnia Assessment/Plan Comment:: 83 yo male patient with a PMH of HTN, CAD, COPD, Hypothyroidism, and SCC of left ear is admitted to [facility] bed today for significant weakness and deconditioning requiring physical and occupational therapies 2/2 to SCC and radiation treatments. Patient wishes to be a Code III. He agrees to be transferred to a higher level of care should the need arise. No changes with any current medications. Will continue same from discharge list from . Our main goal here to get patient back to [place] safely per patient' s wish. Will start Ensure for protein intake. No labs due at this time. Monitor blood sugars per routine. May need to adjust insulin accordingly. I do not anticipate this admission to be longer than one week. Patient seems to be doing fairly well. Continue with radiation treatment per [facility] schedule. Keep all outside appointment with ENT, Plastics, and ID. Need to f/u with PCP in one week.
[2018-08-24] MEDS: Insulin Glargine,Human Rec. Analog 100 Units/ML 3 ML Pen SUBCUT SCH (21:00)
[2018-08-24] MEDS: atorvaSTATin 10 MG Tab PO SCH (21:00)
[2018-08-25] MEDS: Levothyroxine 75 MCG Tab PO SCH (06:35)
[2018-08-25] MEDS: Calcium Carbonate 750 MG Tab.Chew PO SCH (08:27)
[2018-08-25] MEDS: Famotidine 20 MG Tab PO SCH (08:28)
[2018-08-25] MEDS: Aspirin 325 MG Tab.EC PO SCH (08:28)
[2018-08-25] MEDS: Metoprolol Succinate 50 MG Tab.ER PO SCH (08:28)
[2018-08-25] MEDS: Losartan 50 MG Tab PO SCH (08:28)
[2018-08-25] MEDS: Allopurinol 100 MG Tab PO SCH (08:28)
[2018-08-25] MEDS: Magnesium Oxide 400 MG Tab PO SCH (08:28)
[2018-08-25] MEDS: hydrALAZINE 25 MG Tab PO SCH ×2 (08:29→12:47)
[2018-08-25] MEDS: lamoTRIgine 100 MG Tab PO SCH (08:29)
[2018-08-25] MEDS: Oxybutynin 5 MG Tab.ER PO SCH (08:29)
[2018-08-25] MEDS ORDERED: Calcium Carbonate 750 MG Tab.Chew PO PRN (12:28)
[2018-08-25] MEDS: Insulin Glargine,Human Rec. Analog 100 Units/ML 3 ML Pen SUBCUT SCH (19:50)
[2018-08-26] MEDS: Metoprolol Succinate 50 MG Tab.ER PO SCH (08:36)
[2018-08-26] MEDS: lamoTRIgine 100 MG Tab PO SCH (08:36)
[2018-08-26] MEDS: Magnesium Oxide 400 MG Tab PO SCH (08:36)
[2018-08-26] MEDS: Famotidine 20 MG Tab PO SCH (08:36)
[2018-08-26] MEDS: Losartan 50 MG Tab PO SCH (08:36)
[2018-08-26] MEDS: Aspirin 325 MG Tab.EC PO SCH (08:36)
[2018-08-26] MEDS: Allopurinol 100 MG Tab PO SCH (08:36)
[2018-08-26] MEDS: Oxybutynin 5 MG Tab.ER PO SCH (08:37)
[2018-08-26] MEDS: Insulin Glargine,Human Rec. Analog 100 Units/ML 3 ML Pen SUBCUT SCH (20:32)
[2018-08-27] MEDS: Levothyroxine 75 MCG Tab PO SCH (06:32)
[2018-08-27] MEDS: Aspirin 325 MG Tab.EC PO SCH (07:22)
[2018-08-27] MEDS: lamoTRIgine 100 MG Tab PO SCH (07:23)
[2018-08-27] MEDS: Allopurinol 100 MG Tab PO SCH (07:23)
[2018-08-27] MEDS: Famotidine 20 MG Tab PO SCH (07:23)
[2018-08-27] MEDS: Oxybutynin 5 MG Tab.ER PO SCH (07:23)
[2018-08-27] MEDS: Magnesium Oxide 400 MG Tab PO SCH (07:24)
[2018-08-27] MEDS: Metoprolol Succinate 50 MG Tab.ER PO SCH (07:24)
[2018-08-27] MEDS: Losartan 50 MG Tab PO SCH (07:25)
[2018-08-27] MEDS: Insulin Glargine,Human Rec. Analog 100 Units/ML 3 ML Pen SUBCUT SCH (20:25)
[2018-08-28] MEDS: Metoprolol Succinate 50 MG Tab.ER PO SCH (07:29)
[2018-08-28] MEDS: Magnesium Oxide 400 MG Tab PO SCH (07:30)
[2018-08-28] MEDS: Aspirin 325 MG Tab.EC PO SCH (07:30)
[2018-08-28] MEDS: Losartan 50 MG Tab PO SCH (07:30)
[2018-08-28] MEDS: Famotidine 20 MG Tab PO SCH (07:31)
[2018-08-28] MEDS: Allopurinol 100 MG Tab PO SCH (07:31)
[2018-08-28] MEDS: lamoTRIgine 100 MG Tab PO SCH (07:31)
[2018-08-28] MEDS: Oxybutynin 5 MG Tab.ER PO SCH (07:31)
[2018-08-28] MEDS: Insulin Glargine,Human Rec. Analog 100 Units/ML 3 ML Pen SUBCUT SCH (19:42)
[2018-08-29] MEDS: Levothyroxine 75 MCG Tab PO SCH (06:28)
[2018-08-29] MEDS: Aspirin 325 MG Tab.EC PO SCH (07:03)
[2018-08-29] MEDS: Metoprolol Succinate 50 MG Tab.ER PO SCH (07:03)
[2018-08-29] MEDS: lamoTRIgine 100 MG Tab PO SCH (07:04)
[2018-08-29] MEDS: Oxybutynin 5 MG Tab.ER PO SCH (07:04)
[2018-08-29] MEDS: Losartan 50 MG Tab PO SCH (07:05)
[2018-08-29] MEDS: Allopurinol 100 MG Tab PO SCH (07:05)
[2018-08-29] MEDS: Famotidine 20 MG Tab PO SCH (07:06)
[2018-08-29] MEDS: Magnesium Oxide 400 MG Tab PO SCH (07:06)
--- NOTE | 2018-08-29 11:59 | PCM.DCSUM1 ---
Discharge Summary - Hospital Course HPI Initial Comments: Patient is an 83 yo gentleman with a history of head and neck cancer, treated with radiation therapy. He presents to [facility] last week after he sustained a fall at the assisted living facility and developed a large area of ecchymosis on his right buttocks and upper thigh. Patient was found to be severely hypoxic and tachypneic. He was also tachycardic. Patient was found to have acute anemia and was treated with 2 units of PRBCs. Patient was admitted to [facility] in [place] for further treatment and evaluation. Patient has a history of CKD Stage III. Acute kidney injury was prerenal. At time of admission his Creat was 2.55 and eventually improved to 1.18 with IVF. Patient had acute on chronic CHF. Echo showed mildly reduced EF of 40-45%. Patient was diuresed with Lasix and on day of discharge was euvolemic. Losartan was rested as kidney function significantly improved. Patient has hyponatremia as well which improved. Acute on chronic anemia of chronic disease. Acute was from the hematoma on the right buttocks and thigh. He was transfused. FIT was negative. HgB stabilized without further bleeding. Patient has anorexia and poor oral intake. Calorie counts at OSH showed poor oral intake of calories. Patient refused placement of a feeding tube. Patient has a hx of head and neck cancer, treated with radiation therapy that was held while in the hospital and was resume after discharge. 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 Patient has DM Type II. Dose of insulins were adjusted while at [facility]. History of CAD. This remains stable. No chest pain while in [facility]. Patient has HTN and blood pressure medications were restarted. Has a history of ANNIE. Patient resumed on CPAP at night on discharge. History of nicotine dependence. Patient was discharge from [facility] last Monday to our [facility] for PT/OT therapies. Patient is to resume radiation therapy. Will follow up with PCP in about a week. 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 SNOMED Code(s): 922078787 ICD Code: C44.229 - SQUAMOUS CELL CARCINOMA SKIN/ LEFT EAR AND EXTRN AURIC CANAL Status: Acute Priority: Medium Current Visit: No (2) Weakness SNOMED Code(s): 66062253 ICD Code: R53.1 - WEAKNESS Status: Resolved Priority: Medium Current Visit: Yes (3) Physical deconditioning SNOMED Code(s): 11627729391843 ICD Code: R53.81 - OTHER MALAISE Status: Resolved Priority: Medium Current Visit: Yes (4) Atherosclerotic heart disease of [place] coronary artery without angina pectoris SNOMED Code(s): 3263261058903 ICD Code: I25.10 - ATHSCL HEART DISEASE OF [place] CORONARY ARTERY W/O ANG PCTRS Status: Chronic Priority: Low Current Visit: No Qualifiers: [place] vs. transplanted heart: [place] heart Qualified Code(s): I25.10 - Atherosclerotic heart disease of [place] coronary artery without angina pectoris (5) Chronic obstructive pulmonary disease SNOMED Code(s): 41036117 ICD Code: J44.9 - CHRONIC OBSTRUCTIVE PULMONARY DISEASE, UNSPECIFIED Status : Chronic Priority: Low Current Visit: No Qualifiers: COPD type: unspecified COPD Qualified Code(s): J44.9 - Chronic obstructive pulmonary disease, unspecified (6) DM2 (diabetes mellitus, type 2) SNOMED Code(s): 51786644 ICD Code: E11.9 - TYPE 2 DIABETES MELLITUS WITHOUT COMPLICATIONS Status: Chronic Priority: Low Current Visit: No Qualifiers: Diabetes mellitus moth exterminator insulin use: with moth exterminator use Diabetes mellitus complication status: with circulatory complication Diabetes mellitus complication detail: with other circulatory complications Qualified Code(s): E11.59 - Type 2 diabetes mellitus with other circulatory complications; Z79.4 - snf (current) use of insulin (7) Essential (primary) hypertension SNOMED Code(s): 70431061 ICD Code: I10 - ESSENTIAL (PRIMARY) HYPERTENSION Status: Chronic Priority : Low Current Visit: No (8) Hypothyroidism due to acquired atrophy of thyroid SNOMED Code(s): 234662749 ICD Code: E03.4 - ATROPHY OF THYROID (ACQUIRED) Status: Chronic Priority : Low Current Visit: No (9) Peripheral vascular disease SNOMED Code(s): 626881065 ICD Code: I73.9 - PERIPHERAL VASCULAR DISEASE, UNSPECIFIED Status: Chronic Priority: Low Current Visit: No - Patient Summary/Data Operative Procedure(s) Performed: None Consults: Consultations 08/22/18 14:32 Consult to Case Management/Auto Mechanic [CONS] Routine OT Evaluation and Treatment [CONS] Routine PT Evaluation and Treatment [CONS] Routine Labs Pending at D/C: None Recommended Follow-up Testing/Procedures: None Hospital Course: Patient admitted to swing bed last Monday for weakness and deconditioning 2/2 acute blood [facility] He required blood transfusion at OSH and did well. He has a history of SCC of the left ear which has also compounded his medical problems. Patient was able to participate fairly well with therapies. He is required to use a FWW when ambulating as he still seems somewhat weak initially. PO has improved. Weight remained stable. No issues with nausea or vomiting on this admission. BM's normal. Patient continues to attend daily radiation appointments at [facility]. No issues with chest pain or SOB. No focal neurological problems. Patient seems to be improving slowly. - Patient Instructions Diet: Diabetic Diet Activity: Rest and Relax Today Activity, Other: Activity per PT/OT recommendations; needs to use a FWW when ambulating Driving: Do Not Drive Showering/Bathing: May Shower Notify Provider of: Fever, Increased Pain, Nausea and/or Vomiting - Discharge Plan *PRESCRIPTION DRUG MONITORING PROGRAM REVIEWED*: Not Applicable *COPY OF PRESCRIPTION DRUG MONITORING REPORT IN PATIENT USHA: Not Applicable Home Medications: Home Meds Albuterol [Proventil HFA] 2 puff INH Q4H PRN 07/11/18 [History] Aspirin [Ecotrin] 325 mg PO DAILY 07/11/18 [History] Bisacodyl [Dulcolax] 10 mg RC DAILY PRN 07/11/18 [History] Cilostazol 100 mg PO BIDAC 07/11/18 [History] Famotidine 20 mg PO DAILY 07/11/18 [History] Levothyroxine 75 mcg PO Q48H 07/11/18 [History] Metoprolol Succinate 100 mg PO DAILY 07/11/18 [History] Oxybutynin [Oxybutynin ER] 10 mg PO DAILY 07/11/18 [History] Polyethylene Glycol 3350 1 packet PO DAILY PRN 07/11/18 [History] traZODone HCl [Trazodone HCl] 50 mg PO BEDTIME PRN 07/11/18 [History] Allopurinol [Zyloprim] 100 mg PO DAILY 08/22/18 [History] Insulin Glarg,Human.Rec.Analog [Lantus Solostar] 12 units SUBCUT BEDTIME [History] Losartan [Cozaar] 50 mg PO DAILY 08/22/18 [History] Promethazine [Phenergan] 25 mg PO Q6H PRN 08/22/18 [History] lamoTRIgine [Lamictal] 200 mg PO DAILY 08/22/18 [History] Calcium Carbonate [Tums Extra Strength] 750 mg PO DAILY PRN tab.chew 08/29/18 [ Rx] Magnesium Oxide 400 mg PO DAILY tablet 08/29/18 [Rx] Patient Handouts: Cancer Survivorship and Nutrition Referrals: Chetna Law NP [Ordering Only Provider] - - Discharge Summary/Plan Comment DC Time >30 min.: No Discharge Summary/Plan Comment: Patient will be discharge later today to an Assisted Living facility. See discharge medication list for changes. Will follow PT/OT recommendations for activity to continue to work on strength and ambulation. [facility] Patient [facility] follow [facility] at [facility] in one week for a post hospital visit. - General Info Date of Service: 08/29/18 Admission Dx/Problem (Free Text: Admission Diagnosis/Problem Admission Diagnosis/Problem Weakness Deconditioning SCC of Left Ear Hypertension Subjective Update: Patient offers no specific complaints. He is encouraged with feeling better. No issues with BM's or urination. Pain well controlled. Appetite has improved. Functional Status: Reports: Pain Controlled, Tolerating Diet, Ambulating, Urinating Numeric/FACES Score: 0 - Review of Systems General: Reports: Weakness (chronic). Denies: Fever Pulmonary: Denies: Shortness of Breath, Cough Cardiovascular: Denies: Chest Pain, Palpitations Gastrointestinal: Denies: Abdominal Pain, Nausea, Vomiting Musculoskeletal: Reports: No Symptoms Skin: Reports: No Symptoms Neurological: Reports: No Symptoms - Patient Data Vitals - Most Recent: Last Vital Signs Temp 36.6 C 08/29/18 06:00 Pulse 70 08/29/18 07:03 Resp 18 08/29/18 06:00 BP 147/70 H 08/29/18 07:05 Pulse Ox 92 L 08/29/18 06:00 Weight - Most Recent: 91.444 kg I&O - Last 24 hours: Intake & Output 08/28/18 08/29/18 08/29/18 22:59 06:59 14:59 Intake Total 300 Balance 300 Med Orders - Current: Current Medications Acetaminophen (Tylenol) 650 mg PO Q4H PRN PRN Reason: Pain (Mild 1-3)/fever Albuterol (Proventil Neb Soln) 2.5 mg NEB Q4HRRT PRN PRN Reason: SOB,WHEEZING Allopurinol (Zyloprim) 100 mg PO DAILY [facility] Last Admin: 08/29/18 07:05 Dose: 100 mg Aspirin (Ecotrin) 325 mg PO DAILY [facility] Last Admin: 08/29/18 07:03 Dose: 325 mg Bisacodyl (Dulcolax) 10 mg RECTAL DAILY PRN PRN Reason: Constipation Calcium Carbonate/Glycine (Tums Extra Strength) 750 mg PO DAILY PRN PRN Reason: Dyspepsia Last Admin: 08/25/18 12:47 Dose: 750 mg Cilostazol (Pletal) 100 mg PO BIDAC [facility] Last Admin: 08/29/18 06:28 Dose: 100 mg Famotidine (Pepcid) 20 mg PO DAILY [facility] Last Admin: 08/29/18 07:06 Dose: 20 mg Insulin Glargine (Lantus Solostar) 12 units SUBCUT BEDTIME [facility] Last Admin: 08/28/18 19:42 Dose: 12 units Lamotrigine (Lamotrigine) 200 mg PO DAILY [facility] Last Admin: 08/29/18 07:04 Dose: 200 mg Levothyroxine Sodium (Levothyroxine) 75 mcg PO Q2D@0700 [facility] Last Admin: 08/29/18 06:28 Dose: 75 mcg Losartan Potassium (Cozaar) 50 mg PO DAILY [facility] Last Admin: 08/29/18 07:05 Dose: 50 mg Magnesium Oxide (Magnesium Oxide) 400 mg PO DAILY [facility] Last Admin: 08/29/18 07:06 Dose: 400 mg Metoprolol Succinate (Toprol Xl) 100 mg PO DAILY [facility] Last Admin: 08/29/18 07:03 Dose: 100 mg Oxybutynin Chloride (Oxybutynin Er) 10 mg PO DAILY [facility] Last Admin: 08/29/18 07:04 Dose: 10 mg Polyethylene Glycol (Miralax) 17 gm PO DAILY PRN PRN Reason: Constipation Promethazine HCl (Phenergan) 25 mg PO Q6H PRN PRN Reason: Nausea Trazodone HCl (Trazodone) 50 mg PO BEDTIME PRN PRN Reason: Insomnia Discontinued Medications Atorvastatin Calcium (Lipitor) 5 mg PO BEDTIME [facility] Last Admin: 08/24/18 21:00 Dose: 5 mg Calcium Carbonate/Glycine (Tums Extra Strength) 750 mg PO DAILY [facility] Last Admin: 08/25/18 08:27 Dose: 750 mg Hydralazine HCl (Apresoline) 50 mg PO TID [facility] Last Admin: 08/25/18 12:47 Dose: Not Given Magnesium Oxide (Magnesium Oxide) 400 mg PO BID [facility] Last Admin: 08/25/18 08:28 Dose: 400 mg - Exam Quality Assessment: Denies: Skin Breakdown General: Reports: Alert, Oriented, Cooperative, No Acute Distress Lungs: Reports: Clear to Auscultation, Normal Respiratory Effort, Decreased Breath Sounds Cardiovascular: Reports: Regular Rate, Regular Rhythm GI/Abdominal Exam: Normal Bowel Sounds, Soft, Non-Tender Skin: Reports: Warm, Dry, Intact Neurological: Reports: No New Focal Deficit *Q Meaningful Use (DIS) - VTE *Q VTE Mechanical Contraindications *Q: At Risk for Falls
[2018-08-29] MEDS: Insulin Glargine,Human Rec. Analog 100 Units/ML 3 ML Pen SUBCUT SCH (20:29)
[2018-08-30] MEDS: lamoTRIgine 100 MG Tab PO SCH (07:02)
[2018-08-30] MEDS: Oxybutynin 5 MG Tab.ER PO SCH (07:02)
[2018-08-30] MEDS: Famotidine 20 MG Tab PO SCH (07:03)
[2018-08-30] MEDS: Losartan 50 MG Tab PO SCH (07:03)
[2018-08-30] MEDS: Allopurinol 100 MG Tab PO SCH (07:03)
[2018-08-30] MEDS: Metoprolol Succinate 50 MG Tab.ER PO SCH (07:03)
[2018-08-30] MEDS: Aspirin 325 MG Tab.EC PO SCH (07:03)
[2018-08-30] MEDS: Magnesium Oxide 400 MG Tab PO SCH (07:04)
== END 2018-08-30 07:20 | disposition home or self-care (01) | DRG 948 ==
LOC: VM.MS 13:25
PROVIDERS: ADMIT Nurse Practitioner Family; ATTEND Nurse Practitioner Family
DX: R53.1 Weakness (principal); I13.0 Hypertensive heart and chronic kidney disease with heart failure and stage 1 through stage 4 chronic kidney disease, or unspecified chronic kidney disease; C44.229 Squamous cell carcinoma of skin of left ear and external auricular canal; E11.22 Type 2 diabetes mellitus with diabetic chronic kidney disease; N18.3 Chronic kidney disease, stage 3 (moderate); I50.9 Heart failure, unspecified; D63.8 Anemia in other chronic diseases classified elsewhere; E03.4 Atrophy of thyroid (acquired); I73.9 Peripheral vascular disease, unspecified; G47.30 Sleep apnea, unspecified; I25.10 Atherosclerotic heart disease of native coronary artery without angina pectoris; J44.9 Chronic obstructive pulmonary disease, unspecified; Z92.3 Personal history of irradiation; Z79.899 Other long term (current) drug therapy; Z79.82 Long term (current) use of aspirin; Z79.4 Long term (current) use of insulin; Z95.5 Presence of coronary angioplasty implant and graft
CPT/HCPCS: 82962; 97110-GP; 97116-GP; 97161-GP; 97165-GO; 97530-GP; A9270-GY; J1815-GY

== ENCOUNTER 2020-11-05 15:10 | Emergency (ER) | payer MEDICARE, BC ==
[2020-11-05 16:13] LABS: ANION GAP 9.1 mmol/L (10-20); CHLORIDE,CL 100 mmol/L (98-107); SODIUM,NA 136 mmol/L (136-145)
[2020-11-05] MEDS ORDERED: cloNIDine 0.1 MG Tab PO ONE (16:57)
[2020-11-05] MEDS ORDERED: Losartan 25 MG Tab PO STA (17:10)
--- NOTE | 2020-11-05 17:14 | EDM.PDOC ---
ED HPI GENERAL MEDICAL PROBLEM - General Chief Complaint: General Stated Complaint: Elevated Blood Pressure Time Seen by Provider: 11/05/20 15:32 - History of Present Illness INITIAL COMMENTS - FREE TEXT/NARRATIVE: Patient comes emergency department today by private vehicle from the [facility] in [place] with concerns with hypertension. This patient was just sitting in the dining room at the [facility] when they were coming around to do that weekly vital sign check. When he is blood pressure was evaluated and noted that it was quite high approximately 210/115. The patient instructed the caregiver that this is on account for him to have acutely elevated spikes in blood sugar. Although they were quite concerned they immediately called his family and sent emergently to the emergency department. Upon arrival the patient is rather upset that he does not understand why he is in the emergency department. He has absolutely no complaints and he feels just like he does every other day. He has no headache visual acuity changes weakness dizziness lightheadedness. No syncope. No chest pain or shortness of breath or difficulty breathing. No cough or congestion. No fever no chills. No p aresthesias of the upper or lower extremity. No change in functionality of his upper or lower extremities. No abdominal pain nausea or vomiting. No hematuria dysuria or urinary frequency. No black or tarry stools. He has been taking his medication as prescribed as they are regularly dispensed by the nursing staff. His primary care was not contacted prior to his urgent transport to the emerge ncy department. No Covid exposure no Covid symptoms. - Related Data Allergies Allergy/AdvReac Type Severity Reaction Status Date / Time No Known Allergies Allergy Verified 11/05/20 15:31 Home Meds: Home Meds Albuterol [Proventil HFA] 2 puff INH Q4H PRN 07/11/18 [History] Aspirin [Ecotrin EC] 325 mg PO DAILY 07/11/18 [History] Famotidine 20 mg PO DAILY 07/11/18 [History] Levothyroxine 75 mcg PO Q48H 07/11/18 [History] Metoprolol Succinate 100 mg PO DAILY 07/11/18 [History] Oxybutynin [Oxybutynin ER] 10 mg PO DAILY 07/11/18 [History] bisacodyL [Dulcolax] 10 mg RC DAILY PRN 07/11/18 [History] cilostazoL [Cilostazol] 100 mg PO BIDAC 07/11/18 [History] polyethylene glycoL 3350 [Polyethylene Glycol 3350] 1 packet PO DAILY PRN 07/11/18 [History] traZODone HCl [Trazodone HCl] 50 mg PO BEDTIME PRN 07/11/18 [History] Insulin Glarg,Human.Rec.Analog [Lantus Solostar] 12 units SUBCUT BEDTIME 08/22/18 [History] Losartan [Cozaar] 50 mg PO DAILY 08/22/18 [History] Promethazine [Phenergan] 25 mg PO Q6H PRN 08/22/18 [History] allopurinoL [Zyloprim] 100 mg PO DAILY 08/22/18 [History] lamoTRIgine [Lamictal] 200 mg PO DAILY 08/22/18 [History] Calcium Carbonate [Tums Extra Strength] 750 mg PO DAILY PRN tab.chew 08/29/18 [Rx] Magnesium Oxide 400 mg PO DAILY tablet 08/29/18 [Rx] Sennosides/Docusate Sodium [Senna Plus Tablet] 1 tab PO DAILY PRN 09/19/18 [History] Past Medical History HEENT History: Reports: Hard of Hearing, Other (See Below) Other HEENT History: CA of the left ear (removed) Cardiovascular History: Reports: Afib, High Cholesterol, Hypertension, PVD, Stents Other Cardiovascular History: Coronoary Atherosclerosis of [place] Respiratory History: Reports: COPD, Sleep Apnea Musculoskeletal History: Reports: Other (See Below) Other Musculoskeletal History: Generalized weakness AEB patient stating he has been falling more over the last couple of days. Endocrine/Metabolic History: Reports: Diabetes, Type II, Hypothyroidism Oncologic (Cancer) History: Reports: Squamous Cell Carcinoma - Infectious Disease History Infectious Disease History: Reports: VRE - Past Surgical History Other HEENT Surgeries/Procedures: Primary Squamous cell carcinoma of Left ear; Abscess of left external ear; Cancer of Left ear Cardiovascular Surgical History: Reports: Coronary Artery Stent Respiratory Surgical History: Reports: None Oncologic Surgical History: Reports: Other (See Below) Other Oncologic Surgeries/Procedures: skin graft to left ear from thigh Dermatological Surgical History: Reports: Skin Graft Social & Family History - Family History Family Medical History: No Pertinent Family History - Tobacco Use Tobacco Use Status *Q: Former Tobacco User Used Tobacco, but Quit: Yes Month/Year Tobacco Last Used: 2.5 years ago - Caffeine Use Caffeine Use: Reports: Coffee - Recreational Drug Use Recreational Drug Use: No ED ROS GENERAL - Review of Systems Review Of Systems: Comprehensive ROS is negative, except as noted in HPI. ED EXAM, GENERAL - Physical Exam Exam: See Below Exam Limited By: No Limitations General Appearance: Alert, WD/WN, No Apparent Distress Eye Exam: Bilateral Eye: EOMI Ears: Normal External Exam (His right ear is normal on external exam. His left ear is surgically removed.) Nose: Normal Inspection Throat/Mouth: Normal Inspection Head: Atraumatic, Normocephalic Neck: Normal Inspection, Supple Respiratory/Chest: No Respiratory Distress, Lungs Clear, Normal Breath Sounds, Chest Non-Tender Cardiovascular: Normal Peripheral Pulses, Regular Rate, Rhythm Peripheral Pulses: 1+: Posterior Tibial (L), Posterior Tibial (R), Dorsalis Pedis (L), Dorsalis Pedis (R), 2+: Radial (L), Radial (R) GI/Abdominal: Normal Bowel Sounds, Soft, Non-Tender, Pelvis Stable (Male) Exam: Deferred Rectal (Males) Exam: Deferred Back Exam: Normal Inspection, Full Range of Motion Extremities: Normal Range of Motion, Normal Capillary Refill, Pedal Edema (He does have 1+ bilateral lower extremity edema. Without any erythema induration or swelling. No breaks in the skin.) Neurological: Alert, Oriented, CN II-XII Intact, Normal Cognition, No Motor/Sensory Deficits Psychiatric: Normal Affect, Normal Mood Skin Exam: Warm, Dry, Intact, Normal Color, No Rash #1 Interpretation EKG Date: 11/05/20 Time: 15:41 Rhythm: NSR Rate (Beats/Min): 66 [place]: Normal P-Wave: Present QRS: LBBB ST-T: Normal QT: Normal Course - Vital Signs Last Recorded V/S: Last Vital Signs Temp 98 F 11/05/20 15:35 Pulse 67 11/05/20 15:35 Resp 14 11/05/20 16:00 BP 217/94 H 11/05/20 17:23 Pulse Ox 94 L 11/05/20 16:00 - Orders/Labs/Meds Labs: Laboratory Tests 11/05/20 11/05/20 Range/Units 15:44 15:44 WBC 10.2 H (4.0-10.0) x10^3/uL RBC 5.01 (4.5-6.0) x10^6/uL Hgb 14.1 (14.0-18.0) g/dL Hct 43.3 (40.0-52.0) % MCV 86.4 (78.0-93.0) fL MCH 28.1 (26.0-32.0) pg MCHC 32.6 (32.0-36.0) g/dL RDW Coeff of Daniel 15.3 H (10.0-15.0) % Plt Count 256 (130-400) x10^3/uL Neut % (Auto) 40.4 L (50.0-80.0) % Lymph % (Auto) 52.5 H (25.0-50.0) % [place] % (Auto) 3.9 (2.0-11.0) % Eos % (Auto) 3.0 (0.0-4.0) % Baso % (Auto) 0.2 (0.2-1.2) % Sodium 136 (136-145) mmol/L Potassium 4.1 (3.5-5.1) mmol/L Chloride 100 (98-107) mmol/L Carbon Dioxide 31 (21-32) mmol/L Anion Gap 9.1 L (10-20) mmol/L BUN 28 H (7-18) mg/dL Creatinine 1.8 H (0.70-1.30) mg/dL Est Cr Clr Drug Dosing 35.86 mL/min Estimated GFR (MDRD) 36 Glucose 173 H (74-106) mg/dL Calcium 9.3 (8.5-10.1) mg/dL Corrected Calcium 9.86 (8.5-10.1) mg/dL Total Bilirubin 0.4 (0.2-1.0) mg/dL AST 16 (15-37) U/L ALT 18 (16-63) U/L Alkaline Phosphatase 135 H (46-116) U/L Troponin I < 0.017 (<=0.056) ng/mL Total Protein 7.5 (6.4-8.2) g/dL Albumin 3.3 L (3.4-5.0) g/dL Globulin 4.2 Albumin/Globulin Ratio 0.79 Meds: Medications Discontinued Medications Generic Name Dose Route Start Last Admin Trade Name Kiet PRColby Reason Stop Dose Admin Clonidine HCl 0.1 mg 11/05/20 16:57 11/05/20 17:04 Catapres PO 11/05/20 16:58 0.1 mg ONETIME ONE Administration Losartan Potassium 25 mg 11/05/20 17:10 11/05/20 17:23 Cozaar PO 11/05/20 17:11 25 mg NOW STA Administration - Re-Assessments/Exams Free Text/Narrative Re-Assessment/Exam: Patient's blood pressure is quite elevated but he is asymptomatic with this. Laboratory evaluation shows white blood cell count of 10.2, hemoglobin 14.1, platelet 256. Sodium 136 potassium 4.1 I am gap 9.1, BUN 28 creatinine 1.8 which is at his baseline. Troponin less than 0.017. Urinalysis was ordered although the patient did attempt to give a urine but he missed the urinal and urinated primarily on the floor. He did not want to try to give understandable he is rather upset that he is even in the emergency department as he is asymptomatic and he is upset that he missed his lunch and his dinner. I do not really have any reference point for what his blood pressure normally runs. Although he is quite hypertensive today with hypertensive urgency without any evidence of hypertensive crisis. He is a rather chromogen gentleman who does not want to stay in the emergency department any longer. He was given a dose of clonidine 0.1 mg orally and I will increase his losartan from 50 mg p.o. daily to 75 mg p.o. daily. His first dose was increased tonight in the emergency department and will have him increase his dose at the assisted living center to 75 mg p.o. daily. Follow-up in the afternoon with his primary care tomorrow to see what his blood pressure is. He is comfortable with this plan his questions are answered. Departure - Departure Time of Disposition: 17:12 Disposition: Home, Self-Care 01 Clinical Impression: Hypertension Qualifiers: Hypertension type: unspecified Qualified Code(s): I10 - Essential (primary) hypertension - Discharge Information Instructions: Hypertension, Adult, Avyl-ce-Vrsi Referrals: Nick Bond NP [Primary Care Provider] - Forms: ED Department Discharge Additional Instructions: Increase his Losartan to 75 MG daily. Start in the morning of the 11th. Contact his PCP by phone tomorrow with recheck of vital signs in the afternoon. Return to the ED if new or worsening symptoms. Sepsis Event Note (ED) - Evaluation Sepsis Screening Result: No Definite Risk
== END 2020-11-05 17:34 | disposition home or self-care (01) ==
LOC: SUPCPDRO 15:10 → VM.ED 15:10
DX: I10 Essential (primary) hypertension (principal); E78.00 Pure hypercholesterolemia, unspecified; I48.91 Unspecified atrial fibrillation; J44.9 Chronic obstructive pulmonary disease, unspecified; E11.9 Type 2 diabetes mellitus without complications; E03.9 Hypothyroidism, unspecified; I44.7 Left bundle-branch block, unspecified; Z87.891 Personal history of nicotine dependence; Z79.82 Long term (current) use of aspirin; Z79.899 Other long term (current) drug therapy; Z79.4 Long term (current) use of insulin
CPT/HCPCS: 80053; 84484; 85025; 93005; 99283; A9270; 36415; 93010; 99284

== ENCOUNTER 2021-11-03 15:33 | Observation (INO) | payer MEDICARE, BC ==
--- NOTE | 2021-11-03 16:39 | CR ---
[id number] RAD/RAD Pelvis 1V W 2V Right Hip EXAM: RAD Pelvis 1V W 2V Right Hip INDICATION: FALL, RIGHT HIP, LOW BACK PAIN. COMPARISON: None. 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 Bilateral iliac stents. Osteopenia. No acute fracture or dislocation is identified. IMPRESSION: 1. No acute findings. Oumar Tracey MD 11/03/21 [id number] Thank you for allowing us to participate in the care of your patient.
--- NOTE | 2021-11-03 16:40 | CR ---
[id number] RAD/RAD Wrist Right 3V Min Exam: RAD Wrist Right 3V Min Indication:WRIST PAIN POST FALL. Comparison: No prior imaging for comparison. Discussion/Impression: Acute comminuted distal radius fracture. Fracture centered in the metaphysis extending into the radiocarpal articulation through the radius subchondral endplate. Major fragment containing the radial styloid and demonstrates 5 mm of separation from its donor site Lateral view demonstrates up to at least 6 mm of AP separation at the articular surface. No definite ulna fracture identified. No fracture in the carpus with the limitation of advanced osteoarthritis resulting in subchondral cyst formation and extensive mineralized debris throughout the articulation. Soft tissue swelling. Inderjit Sun MD 11/03/21 [id number] Thank you for allowing us to participate in the care of your patient.
--- NOTE | 2021-11-03 16:42 | CR ---
[id number] RAD/RAD Lumbar Spine 2-3V EXAM: RAD Lumbar Spine 2-3V INDICATION: FALL,LOW BACK PAIN POST FALL. COMPARISON: None. DISCUSSION: Minor convex right curvature centered in the midlumbar spine. Slight retrolisthesis L3-L4. Possible ankylosis across the L1-L2 disc space. Moderate disc degeneration of the lumbar spine. Prior posterior decompression and fusion throughout the majority of the lumbar spine. Stimulator leads at the lumbosacral junction. Bilateral iliac stents. IMPRESSION: 1. Moderate lumbar spondylosis. 2. Posterior decompression and fusion of the mid to lower lumbar spine. Oumar Tracey MD 11/03/21 [id number] Thank you for allowing us to participate in the care of your patient.
--- NOTE | 2021-11-03 17:11 | EDM.PDOC ---
ED HPI GENERAL MEDICAL PROBLEM - General Chief Complaint: Upper Extremity Injury/Pain Time Seen by Provider: 11/03/21 15:33 Source of Information: Reports: Patient, EMS History Limitations: Reports: No Limitations - History of Present Illness INITIAL COMMENTS - FREE TEXT/NARRATIVE: Pt. presents to ER with complaints of R hip, low back, and R wrist pain post fall. Pt. states that he fell while turning with his walker at around 0800 this AM. He states that he did not strike his head, and thinks that the bed decreased the severity of the fall. Pt. states that he did not have any chest pain, shortness of breath, lightheadedness, or weakness prior to the fall. Pt. ambulates with a wheeled walker at [facility]. Pt. was transported to ER via EMS, as he was unable to get into a car for transport to ER. Denies any fever or chills. No dysuria. No chest pain or shortness of breath. No headache. He is able to stand and pivot with assist of 2 but unable to ambulate more than a couple of steps. Pt. states that he sustained a laceration to his L anterior foot yesterday on his wheelchair which staff dressed. Onset: Today Onset Date: 11/03/21 Right Wrist Pain Score (Numeric/FACES): 4 Right Hip Pain Score (Numeric/FACES): 4 - Related Data Allergies Allergy/AdvReac Type Severity Reaction Status Date / Time No Known Allergies Allergy Verified 11/03/21 15:46 Home Meds: Home Meds Albuterol [Proventil HFA] 2 puff INH Q4H PRN 07/11/18 [History] Levothyroxine 37.5 mcg PO Q48H 07/11/18 [History] Metoprolol Succinate 150 mg PO DAILY 07/11/18 [History] Oxybutynin [Oxybutynin ER] 10 mg PO DAILY 07/11/18 [History] bisacodyL [Dulcolax] 10 mg RC DAILY PRN 07/11/18 [History] cilostazoL [Cilostazol] 100 mg PO BIDAC 07/11/18 [History] polyethylene glycoL 3350 [Polyethylene Glycol 3350] 1 packet PO DAILY PRN 07/11/18 [History] traZODone HCl [Trazodone HCl] 50 mg PO BEDTIME PRN 07/11/18 [History] Losartan [Cozaar] 75 mg PO DAILY 08/22/18 [History] Promethazine [Phenergan] 25 mg PO Q6H PRN 08/22/18 [History] allopurinoL [Zyloprim] 100 mg PO DAILY 08/22/18 [History] lamoTRIgine [Lamictal] 200 mg PO DAILY 08/22/18 [History] Calcium Carbonate [Tums Extra Strength] 750 mg PO DAILY PRN tab.chew 08/29/18 [Rx] Magnesium Oxide 400 mg PO DAILY tablet 08/29/18 [Rx] Sennosides/Docusate Sodium [Senna Plus Tablet] 1 tab PO DAILY PRN 09/19/18 [History] Aspirin 81 mg PO DAILY 11/03/21 [History] Furosemide [Lasix] 20 mg PO DAILY 11/03/21 [History] Hydrocodone/Acetaminophen [HYDROcodone-Acetaminophen 5-325 MG] 1 - 2 each PO Q4H PRN 11/03/21 [History] Insulin Glargine,Hum.Rec.Anlog [Basaglar Kwikpen U-100] 12 unit SQ DAILY 11/03/21 [History] Past Medical History HEENT History: Reports: Hard of Hearing, Other (See Below) Other HEENT History: CA of the left ear (removed) Cardiovascular History: Reports: Afib, High Cholesterol, Hypertension, PVD, Stents Other Cardiovascular History: Coronoary Atherosclerosis of [place] Respiratory History: Reports: COPD, Sleep Apnea Musculoskeletal History: Reports: Other (See Below) Other Musculoskeletal History: Generalized weakness AEB patient stating he has been falling more over the last couple of days. Endocrine/Metabolic History: Reports: Diabetes, Type II, Hypothyroidism Oncologic (Cancer) History: Reports: Squamous Cell Carcinoma - Infectious Disease History Infectious Disease History: Reports: VRE - Past Surgical History Other HEENT Surgeries/Procedures: Primary Squamous cell carcinoma of Left ear; Abscess of left external ear; Cancer of Left ear Cardiovascular Surgical History: Reports: Coronary Artery Stent Oncologic Surgical History: Reports: Other (See Below) Other Oncologic Surgeries/Procedures: skin graft to left ear from thigh Dermatological Surgical History: Reports: Skin Graft Social & Family History - Family History Family Medical History: No Pertinent Family History - Tobacco Use Tobacco Use Status *Q: Unknown Ever Used Tobacco - Caffeine Use Caffeine Use: Reports: Coffee Review of Systems - Review of Systems Review Of Systems: See Below Constitutional: Reports: No Symptoms Eyes: Reports: No Symptoms Ears: Reports: No Symptoms Nose: Reports: No Symptoms Mouth/Throat: Reports: No Symptoms Respiratory: Reports: No Symptoms Cardiovascular: Reports: No Symptoms GI/Abdominal: Reports: No Symptoms Genitourinary: Reports: No Symptoms Musculoskeletal: Reports: Back Pain, Leg Pain, Joint Pain, Muscle Pain, Muscle Stiffness Skin: Reports: Pallor, Other (lower extremity ulcers/erythema, laceration to anterior L foot) Neurological: Reports: No Symptoms Psychiatric: Reports: No Symptoms ED EXAM, GENERAL - Physical Exam Exam: See Below Exam Limited By: No Limitations General Appearance: Alert, WD/WN, No Apparent Distress Nose: Normal Inspection, Normal Mucosa, No Blood Throat/Mouth: Normal Inspection, Normal Lips, Normal Teeth, Normal Gums, Normal Oropharynx, Normal Voice, No Airway Compromise Head: Atraumatic, Normocephalic Neck: Normal Inspection, Supple, Non-Tender, Full Range of Motion Respiratory/Chest: No Respiratory Distress, Lungs Clear, Normal Breath Sounds, No Accessory Muscle Use, Chest Non-Tender Cardiovascular: Regular Rate, Rhythm, No JVD, No Murmur GI/Abdominal: Soft, Non-Tender, No Distention, No Mass (Male) Exam: Deferred Rectal (Males) Exam: Deferred Back Exam: Normal Inspection, Full Range of Motion Extremities: Limited Range of Motion, Redness (Ulcer/laceration/mild cellulitis to L anterior ankle. Serosanguinous drainage noted from area.) Neurological: Alert, Oriented, CN II-XII Intact, Confused (At baseline), Disoriented Psychiatric: Normal Mood Skin Exam: Warm, Dry, Decubitus, Other (Ulcers to R foot. Areas of ulceration/skin breakdown to L lower extremity, pt. states has been a chronic problem. Pt. also noted to have approx. 3 cm laceration to anterior foot, pt. states that he sustained yesterday on the wheel chair. ) Lymphatic: No Adenopathy Course - Vital Signs Last Recorded V/S: Last Vital Signs Temp 36.2 C 11/03/21 15:33 Pulse 71 11/03/21 15:33 Resp 18 11/03/21 15:33 BP 128/74 11/03/21 15:33 Pulse Ox 92 L 11/03/21 15:33 - Orders/Labs/Meds Meds: Medications Discontinued Medications Generic Name Dose Route Start Last Admin Trade Name Kiet PRN Reason Stop Dose Admin Hydrocodone Bitart/Acetaminophen 1 tab 11/03/21 18:19 11/03/21 18:36 Acetaminophen/Hydrocodone 325-10 Mg Tab PO 11/03/21 18:20 1 tab ONETIME ONE Administration - Radiology Interpretation Free Text/Narrative:: Pelvic/R hip radiographs negative for acute pathology. Radiographs of lumbar spine negative for acute pathology. Radiographs of R wrist wrist show comminuted distal radius fracture. Images were reviewed with [facility] who advised splinting and placement of cast in 7- 10 days. Departure - Departure Time of Disposition: 19:18 Disposition: Refer to Observation Clinical Impression: Wrist fracture, right, Lumbar strain, Contusion, hip, Cellulitis of left leg - Discharge Information Sepsis Event Note (ED) - Focused Exam Vital Signs: Vital Signs Temp Pulse Resp BP Pulse Ox 11/03/21 15:33 36.2 C 71 18 128/74 92 L - Problem List Review Problem List Initiated/Reviewed/Updated: Yes - Assessment/Plan Plan: Pt. was unable to ambulate, and required the assistance of 2 to get the patient to stand and pivot to commode. He is unable to fully bear weight on R leg. Decision was made to admit the patient observation, as he is unable to walk/transfer to toilet, particularly with fracture of R wrist. Labs are pending. Pt. will be started on a trial of oral keflex for cellulitis to L lower extremity. He was started on oral norco 10/325mg every 4-6 hours as needed for pain. Will have PT and OT work evaluate patient to see if he is a candidate for placement back at [facility] or if he will require group home. Pt. is a code 2.
[2021-11-03] MEDS ORDERED: Acetaminophen/HYDROcodone 325-10 MG Tab PO ONE (18:19)
[2021-11-03 19:30] LABS: CHLORIDE,CL 99 mmol/L (98-107); SODIUM,NA 136 mmol/L (136-145)
[2021-11-03] MEDS ORDERED: Acetaminophen/HYDROcodone 325-5 MG Tab PO PRN (19:52)
[2021-11-03] MEDS ORDERED: Bisacodyl 10 MG Supp RECTAL PRN (19:53)
[2021-11-03] MEDS ORDERED: Albuterol 0.083% 2.5 MG/3 ML Neb Soln INH PRN (19:53)
[2021-11-03] MEDS ORDERED: Promethazine 25 MG Tab PO PRN (19:53)
[2021-11-03] MEDS ORDERED: Polyethylene Glycol 3350 Powder 17 GM Packet PO PRN (19:53)
[2021-11-03] MEDS ORDERED: traZODone 50 MG Tab PO PRN (19:53)
[2021-11-03] MEDS ORDERED: Calcium Carbonate 750 MG Tab.Chew PO PRN (19:53)
[2021-11-03] MEDS: Cephalexin 500 MG Cap PO SCH ×2 (20:55→23:31)
[2021-11-04] MEDS: Cephalexin 500 MG Cap PO SCH ×3 (06:03→17:46)
[2021-11-04] MEDS: Metoprolol Succinate 50 MG Tab.ER PO SCH (08:10)
[2021-11-04] MEDS: Losartan 50 MG Tab PO SCH (08:11)
[2021-11-04] MEDS: Oxybutynin 5 MG Tab.ER PO SCH (08:11)
[2021-11-04] MEDS: lamoTRIgine 100 MG Tab PO SCH (08:11)
[2021-11-04] MEDS: Magnesium Oxide 400 MG Tab PO SCH (08:12)
[2021-11-04] MEDS: Allopurinol 100 MG Tab PO SCH (08:12)
[2021-11-04] MEDS: Aspirin 81 MG Tab.Chew PO SCH (08:12)
[2021-11-04] MEDS: Insulin Glarg,Human.Rec.Analog 100 Unit/ML SUBCUT SCH (08:13)
[2021-11-04] MEDS: Acetaminophen/HYDROcodone 325-10 MG Tab PO PRN ×2 (08:16→17:45)
--- NOTE | 2021-11-04 22:08 | PCM.PN ---
- General Info Date of Service: 11/04/21 Admission Dx/Problem (Free Text): Wer[place] fracture R Lumbar strain Contusion hip Cellulitis l leg Subjective Update: The patient is resting in bed. He has rather unhappy that I come to evaluate him today because he came to the hospital to get some rest. He relates that his pain is well controlled. He has no other complaints. He wants to sleep. He does not want to get out of bed he does not want to do physical therapy he does not want to do occupational therapy he has come to the hospital to get some sleep he offers no other complaints at this time. He did attempt with quite a bit of coaching on my behalf up to the bedside but complained of severe right hip pain Functional Status: Denies: Ambulating (The patient is refusing to get out of bed he is refusing physical therapy. He is refusing occupational therapy.) - Review of Systems General: Reports: No Symptoms HEENT: Reports: No Symptoms Pulmonary: Reports: No Symptoms Cardiovascular: Reports: No Symptoms Gastrointestinal: Reports: No Symptoms Genitourinary: Reports: No Symptoms Musculoskeletal: Reports: Hand Pain (Right). Denies: Back Pain, Leg Pain Skin: Reports: No Symptoms Neurological: Reports: No Symptoms Psychiatric: Reports: No Symptoms - Patient Data Vitals - Most Recent: Last Vital Signs Temp 98.3 F 11/04/21 21:35 Pulse 60 11/04/21 21:35 Resp 18 11/04/21 21:35 BP 117/58 L 11/04/21 21:35 Pulse Ox 93 L 11/04/21 21:35 Weight - Most Recent: 199 lb I&O - Last 24 Hours: Intake & Output 11/04/21 11/04/21 11/04/21 06:59 14:59 22:59 Intake Total 220 120 120 Output Total 300 700 Balance -80 120 -580 Lab Results Last 24 Hours: Laboratory Results - last 24 hr 11/04/21 Range/Units 08:01 POC Glucose 167 H (70-99) mg/dL Med Orders - Current: Current Medications Hydrocodone Bitart/Acetaminophen (Acetaminophen/Hydrocodone 325-10 Mg Tab) 1 tab PO Q4H PRN PRN Reason: Pain Last Admin: 11/04/21 17:45 Dose: 1 tab Documented by: Albuterol (Albuterol 0.083% 2.5 Mg/3 Ml Neb Soln) 2.5 mg INH Q4H PRN PRN Reason: wheezing/shortness of breath Allopurinol (Allopurinol 100 Mg Tab) 100 mg PO DAILY [facility] Last Admin: 11/04/21 08:12 Dose: 100 mg Documented by: Aspirin (Aspirin 81 Mg Tab.Chew) 81 mg PO DAILY [facility] Last Admin: 11/04/21 08:12 Dose: 81 mg Documented by: Bisacodyl (Bisacodyl 10 Mg Supp) 10 mg RECTAL DAILY PRN PRN Reason: Constipation Calcium Carbonate/Glycine (Calcium Carbonate 750 Mg Tab.Chew) 750 mg PO DAILY PRN PRN Reason: Dyspepsia Cephalexin (Cephalexin 500 Mg Cap) 500 mg PO Q6HR [facility] Last Admin: 11/04/21 17:46 Dose: 500 mg Documented by: Cilostazol (Cilostazol 100 Mg Tab) 100 mg PO BIDAC [facility] Last Admin: 11/04/21 17:47 Dose: 100 mg Documented by: Insulin Glargine (Insulin Glarg,Human.Rec.Analog 100 Unit/Ml) 12 unit SUBCUT DAILY [facility] Last Admin: 11/04/21 08:13 Dose: 12 units Documented by: Lamotrigine (Lamotrigine 100 Mg Tab) 200 mg PO DAILY [facility] Last Admin: 11/04/21 08:11 Dose: 200 mg Documented by: Levothyroxine Sodium (Levothyroxine 75 Mcg Tab) 37.5 mcg PO Q48H [facility] Losartan Potassium (Losartan 50 Mg Tab) 75 mg PO DAILY [facility] Last Admin: 11/04/21 08:11 Dose: 75 mg Documented by: Magnesium Oxide (Magnesium Oxide 400 Mg Tab) 400 mg PO DAILY [facility] Last Admin: 11/04/21 08:12 Dose: 400 mg Documented by: Metoprolol Succinate (Metoprolol Succinate 50 Mg Tab.Er) 150 mg PO DAILY [facility] Last Admin: 11/04/21 08:10 Dose: 150 mg Documented by: Oxybutynin Chloride (Oxybutynin 5 Mg Tab.Er) 10 mg PO DAILY [facility] Last Admin: 11/04/21 08:11 Dose: 10 mg Documented by: Polyethylene Glycol (Polyethylene Glycol 3350 Powder 17 Gm Packet) 17 gm PO DAILY PRN PRN Reason: Constipation Promethazine HCl (Promethazine 25 Mg Tab) 25 mg PO Q6H PRN PRN Reason: Nausea Senna/Docusate Sodium (Docusate Sodium/Sennosides 50-8.6 Mg Tab) 1 tab PO DAILY PRN PRN Reason: Constipation Trazodone HCl (Trazodone 50 Mg Tab) 50 mg PO BEDTIME PRN PRN Reason: Insomnia Discontinued Medications Hydrocodone Bitart/Acetaminophen (Acetaminophen/Hydrocodone 325-10 Mg Tab) 1 tab PO ONETIME ONE Stop: 11/03/21 18:20 Last Admin: 11/03/21 18:36 Dose: 1 tab Documented by: Hydrocodone Bitart/Acetaminophen (Acetaminophen/Hydrocodone 325-5 Mg Tab) 1 tab PO Q4H PRN PRN Reason: Pain - Exam Quality Assessment: DVT Prophylaxis General: Alert, Oriented HEENT: Pupils Equal, Pupils Reactive, EOMI, Mucous Membr. Moist/[place]: Supple Lungs: Clear to Auscultation, Normal Respiratory Effort Cardiovascular: Regular Rate, Regular Rhythm GI/Abdominal Exam: Normal Bowel Sounds, Soft, Non-Tender (Male) Exam: Deferred Back Exam: Normal Inspection. No: Paraspinal Tenderness, Vertebral Tenderness Extremities: No Pedal Edema, Normal Capillary Refill. No: Normal Inspection (On the left anterior ankle there is a mild cellulitis with some serosanguineous drainage. The right upper extremity is in a long forearm splint with good CMS.) Peripheral Pulses: 2+: Radial (L), Radial (R), Posterior Tibial (L), Posterior Tibial (R), Dorsalis Pedis (L), Dorsalis Pedis (R) Skin: Warm, Dry, Intact Neurological: No New Focal Deficit Psy/Mental Status: Alert, Normal Affect, Normal Mood - Patient Data Lab Results Last 24 hrs: Laboratory Results - last 24 hr 11/04/21 Range/Units 08:01 POC Glucose 167 H (70-99) mg/dL Result Diagrams: 11/03/21 19:05 11/03/21 19:05 Sepsis Event Note - Evaluation Sepsis Screening Result: No Definite Risk - Focused Exam Vital Signs: Vital Signs Temp Pulse Resp BP Pulse Ox 11/04/21 21:35 98.3 F 60 18 117/58 L 93 L 11/04/21 18:00 98.6 F 60 16 112/56 L 90 L 11/04/21 14:00 98.6 F 62 16 141/55 H 92 L - Problem List Review Problem List Initiated/Reviewed/Updated: Yes - My Orders Last 24 Hours: My Active Orders 11/04/21 16:35 Pelvis wo Cont [CT] Routine - Assessment Assessment:: Assessment/plan. #1: Right wrist fracture Splint short arm in place. Monitor cast 10 days outpatient. [place] pain. #2: Lumbar strain Negative x-rays completed in the ER PT OT ordered although the patient is refusing. #3: Contusion left hip. Pelvic and hip x-ray negative in the ER. The patient did attempt to get up 1 time but he states his pain is so severe on the right hip he cannot ambulate. CT pelvis to see if there is a subtle fracture 4.: Cellulitis left leg. Keflex 5: CKD stage III Creat 1.7 at baseline. VTE: He is low risk although we will start him on Lovenox 40 mg daily as he is refusing to ambulate or get out of bed teds. Sepsis: No signs of sepsis at this time. Continue to monitor. CODE STATUS: Code level 2. We will keep the patient at this time in observation as we need to complete a CT scan to ensure that there is not some subtle fracture that was not identified on the plain films. This is going to be a very difficult patient in the hospital as he is refusing any cares or therapies to determine if he is able to return back to the [facility]. We will complete a CT scan in the morning. If he continues to refuse physical therapy or occupational therapy will have manager social work meet with him and consider longterm placement tomorrow. Even when I am in the room the patient will not picker and packer his glass of water to drink fluids.
[2021-11-05] MEDS: Cephalexin 500 MG Cap PO SCH ×2 (00:14→06:09)
[2021-11-05] MEDS: Acetaminophen/HYDROcodone 325-10 MG Tab PO PRN (03:54)
[2021-11-05] MEDS ORDERED: Levothyroxine 75 MCG Tab PO SCH (07:00)
[2021-11-05] MEDS ORDERED: Enoxaparin 40 MG/0.4 ML Syringe SUBCUT SCH (09:00)
[2021-11-05] MEDS: Aspirin 81 MG Tab.Chew PO SCH (09:43)
[2021-11-05] MEDS: lamoTRIgine 100 MG Tab PO SCH (09:44)
[2021-11-05] MEDS: Metoprolol Succinate 50 MG Tab.ER PO SCH (09:44)
[2021-11-05] MEDS: Insulin Glarg,Human.Rec.Analog 100 Unit/ML SUBCUT SCH (09:45)
[2021-11-05] MEDS: Losartan 50 MG Tab PO SCH (09:46)
[2021-11-05] MEDS: Oxybutynin 5 MG Tab.ER PO SCH (09:49)
[2021-11-05] MEDS: Magnesium Oxide 400 MG Tab PO SCH (10:32)
[2021-11-05] MEDS: Allopurinol 100 MG Tab PO SCH (10:32)
== END 2021-11-05 12:48 | disposition home or self-care (01) ==
LOC: VM.ED 15:33 → VM.MS 17:49
PROVIDERS: ADMIT Physician Assistant; ATTEND Physician Assistant
DX: S52.501A Unspecified fracture of the lower end of right radius, initial encounter for closed fracture (principal); R53.1 Weakness; M54.50 Low back pain, unspecified; M25.551 Pain in right hip; I48.91 Unspecified atrial fibrillation; I10 Essential (primary) hypertension; I25.10 Atherosclerotic heart disease of native coronary artery without angina pectoris; J44.9 Chronic obstructive pulmonary disease, unspecified; E03.9 Hypothyroidism, unspecified; E11.51 Type 2 diabetes mellitus with diabetic peripheral angiopathy without gangrene; E11.69 Type 2 diabetes mellitus with other specified complication; E78.2 Mixed hyperlipidemia; G47.33 Obstructive sleep apnea (adult) (pediatric); F51.01 Primary insomnia; Z20.822 Contact with and (suspected) exposure to COVID-19; Z79.899 Other long term (current) drug therapy; Z79.82 Long term (current) use of aspirin; Z79.890 Hormone replacement therapy; Z79.4 Long term (current) use of insulin; Z98.890 Other specified postprocedural states; W19.XXXA Unspecified fall, initial encounter
CPT/HCPCS: 36415; 72100; 73110; 73502; 80053; 82947; 85025; 86140; 99285; A9270; G0378; J1815; U0002; 99220; 99225

== ENCOUNTER 2021-11-05 12:17 | Inpatient (IN) | payer SELFPAY ==
[2021-11-05] MEDS ORDERED: Magnesium Hydroxide 400 MG/5 ML Susp 30 ML Cup PO PRN (12:32)
[2021-11-05] MEDS ORDERED: Albuterol HFA 18 Gm Inhaler INH PRN (12:32)
[2021-11-05] MEDS ORDERED: HALOBETASOL PROPIONATE TOP PRN (12:32)
[2021-11-05] MEDS ORDERED: traZODone 50 MG Tab PO PRN (12:32)
[2021-11-05] MEDS ORDERED: Promethazine 25 MG Tab PO PRN (12:32)
[2021-11-05] MEDS ORDERED: Camphor/Menthol 0.5-0.5% Lotion 222 ML Bottle TOP PRN (12:32)
[2021-11-05] MEDS ORDERED: Triamcinolone Acetonide 0.1% Crm 15 GM Tube TOP PRN (12:32)
[2021-11-05] MEDS ORDERED: Calcium Carbonate 750 MG Tab.Chew PO PRN (12:32)
[2021-11-05] MEDS ORDERED: Bisacodyl 10 MG Supp RECTAL PRN (12:32)
[2021-11-05] MEDS: Allopurinol 100 MG Tab (OWN SUPPLY) PO SCH (20:40)
[2021-11-05] MEDS: CILOSTAZOL 100 MG PO SCH (20:40)
[2021-11-05] MEDS: LOSARTAN PO SCH (20:40)
[2021-11-05] MEDS: OXYBUTYNIN 10 MG PO SCH (20:42)
[2021-11-05] MEDS: Acetaminophen/HYDROcodone 325-5 MG Tab PO PRN (20:42)
--- NOTE | 2021-11-05 21:55 | HP ---
CHIEF COMPLAINT: 1. Weakness and deconditioning. 2. Upper extremity injury. HISTORY OF PRESENT ILLNESS: An 86-year-old male patient, presented to the emergency room at [facility] 2 days ago with complaints of right hip, low back, right wrist pain after he fell at the assisted living facility where he lives. The patient states he fell while he was turning with his walker around 8 o'clock that morning. The patient denies any head injury or trauma. The patient denies any upper back or neck pain. The patient states that he did start to fall into his bed, which helped to decrease the severity of the fall. The patient denies any headaches, dizziness, or lightheadedness. The patient ambulates with a wheeled walker at the assisted living facility. The patient has not had any unilateral weakness. No visual field disturbances. The patient was transported to the emergency room via EMS as he was unable to get into a car for transport to the ER. The patient has not had any recent infections. No fevers or chills. In the emergency room, the patient was able to stand and pivot with assist of 2, but unable to ambulate more than a couple of steps. The patient did sustain a laceration to his left anterior foot the day before on his wheelchair, which was taken care of by the assisted living staff. PAST MEDICAL HISTORY: 1. Cancer of the left ear. 2. Atrial fibrillation. 3. Mixed hyperlipidemia secondary to diabetes. 4. Hypertension associated with diabetes. 5. Peripheral vascular disease. 6. Coronary stents. 7. Coronary atherosclerosis. 8. COPD. 9. Obstructive sleep apnea. 10.Chronic generalized weakness. 11.Diabetes type 2. 12.Acquired hypothyroidism. 13.Squamous cell carcinoma. PAST SURGICAL HISTORY: Left ear excision for cancer. FAMILY HISTORY: Noncontributory. SOCIAL HISTORY: The patient does not smoke cigarettes. The patient does not use any alcohol. The patient currently lives alone in his apartment at the assisted living facility. The patient is a code 2. CODE STATUS: Code 2. ALLERGIES: No known allergies. MEDICATIONS: 1. Acetaminophen/hydrocodone 1 tablet p.o. every 4 hours as needed. 2. Ventolin HFA 2 puffs every 4 hours as needed. 3. Allopurinol 100 mg 1 tablet p.o. daily at bedtime. 4. Aspirin 81 mg 1 tablet p.o. daily. 5. Dulcolax 10 mg rectal daily as needed. 6. Calcium carbonate 750 mg 1 tablet p.o. daily as needed. 7. Sarna topically daily as needed. 8. Pletal 100 mg p.o. twice daily. 9. Senna S 1 tablet p.o. daily as needed. 10.Lasix 20 mg 1 tablet p.o. daily as needed. 11.Halobetasol topically twice daily as needed. 12.Insulin glargine subcu daily. 13.Lamotrigine 1 tablet p.o. daily. 14.Levothyroxine 37.5 mcg every 48 hours. 15.Cozaar 1 tablet p.o. daily. 16.Magnesium oxide 400 mg 1 tablet p.o. daily. 17.Metoprolol 1 tablet p.o. daily. 18.MiraLAX 17 g p.o. daily as needed. 19.Phenergan 25 mg 1 tablet p.o. every 6 hours as needed. 20.Trazodone 50 mg 1 tablet p.o. daily at bedtime. 21.Triamcinolone 0.5% topically daily as needed. LABORATORY STUDIES: None. REVIEW OF SYSTEMS: See HPI. PHYSICAL EXAMINATION: Vital Signs: See nursing documentation. Skin: Intact, warm, and dry. Respiratory: Lungs are decreased, but clear throughout. Cardiovascular: Regular rate and rhythm, no murmur. Abdomen: Soft, nontender. Bowel sounds are hypoactive x4. Extremities: No edema. Neurological: The patient is alert. The patient is oriented to person and place, but disoriented to time. The patient has weakness in all 4 extremities. Right Upper Extremity: Unable to assess as the splint is in place. ASSESSMENT: 1. Distal radius fracture of the right arm. 2. Weakness and deconditioning. 3. Fall at assisted living. 4. Coronary artery disease. 5. Type 2 diabetes with long-term use of insulin without complication. 6. Hyperlipidemia secondary to type 2 diabetes. 7. Hypertension associated with type 2 diabetes. 8. Primary insomnia. 9. History of gout. 10.Chronic obstructive pulmonary disease. PLAN: An 86-year-old male patient, was admitted to the swing bed unit at [facility] for the above diagnoses. The patient is in need of physical therapy, but he declines. The patient will be on swing bed with self pay until other arrangements can be made for his living situation. The patient does require an assist of 2, which precludes him from going back to the assisted living facility. The patient is a code 2. The patient does not want to be transferred to a higher level of care should the need arise. Continue same medications from his observation stay. Splint care daily as directed. This patient was seen and examined by me as an [facility] provider. Total time with coordination of care greater than 30 minutes. TB: 11/05/2021 17:12:54 MODL: 11/05/2021 21:47:25 /[id number]
[2021-11-06] MEDS: Acetaminophen/HYDROcodone 325-5 MG Tab PO PRN ×2 (00:54→09:03)
[2021-11-06] MEDS: Ondansetron 4 MG Tab.DIS PO PRN ×3 (03:19→15:03)
[2021-11-06] MEDS: [UNRECOGNIZED DRUG - OTHER] SQ SCH (06:23)
[2021-11-06] MEDS: INSULIN GLARGINE SQ SCH (06:23)
[2021-11-06] MEDS: METOPROLOL SUCCINATE 100 MG PO SCH (07:53)
[2021-11-06] MEDS: CILOSTAZOL 100 MG PO SCH ×2 (07:53→20:18)
[2021-11-06] MEDS: LAMOTRIGINE 200 MG PO SCH (07:53)
[2021-11-06] MEDS: FUROSEMIDE 20 MG PO SCH (07:53)
[2021-11-06] MEDS: ASPIRIN 81 MG PO SCH (07:53)
[2021-11-06] MEDS: MAGNESIUM OXIDE 400 MG PO SCH (07:53)
[2021-11-06] MEDS: Polyethylene Glycol 3350 Powder 17 GM Packet PO PRN (07:58)
--- NOTE | 2021-11-06 15:28 | CT ---
[id number] CT/CT Hip Right WO IV EXAM: CT Hip Right WO IV INDICATION: PELVIC PAIN, RIGHT HIP PAIN. COMPARISON: Pelvis CT previous day. DISCUSSION: Mildly hyperdense right hip joint effusion or hemarthrosis. Soft tissue swelling lateral to the greater trochanter. Moderate osteoarthritis of the hip. No fracture or bone lesion is identified. Evaluation of the proximal femur is limited by exclusion of the posterior most aspect of the greater trochanter. Extensive arterial calcifications are noted along with a left common and external iliac stent on the right and the partially imaged left common iliac stent on the left. IMPRESSION: 1. The right hip joint effusion is somewhat hyperdense raising the possibility of hemarthrosis. No fracture is evident by CT. MRI could provide further evaluation if there is concern for an occult fracture. Alternatively, right hip aspiration could be performed if there is clinical evidence of infection. 2. Moderate osteoarthritis of the right hip. 3. Soft tissue swelling lateral to the right greater trochanter. Oumar Tracey MD 11/06/21 [id number] Thank you for allowing us to participate in the care of your patient.
[2021-11-06] MEDS: LOSARTAN PO SCH (20:18)
[2021-11-06] MEDS: Allopurinol 100 MG Tab (OWN SUPPLY) PO SCH (20:18)
[2021-11-06] MEDS: OXYBUTYNIN 10 MG PO SCH (20:22)
[2021-11-07] MEDS: INSULIN GLARGINE SQ SCH (06:51)
[2021-11-07] MEDS: [UNRECOGNIZED DRUG - OTHER] SQ SCH (06:51)
[2021-11-07] MEDS: Ondansetron 4 MG Tab.DIS PO PRN ×2 (08:06→17:34)
--- NOTE | 2021-11-07 09:25 | PCM.SN.2 ---
- Free Text/Narrative Note: Patient seen and examined. Does not appear to be uncomfortable or symptomatic. Resting well. Continues to have right hip pain. CT from yesterday shows a hemarthrosis. Patient had emesis last night testing hem positive. Will check labs today and start patient on Protonix for GI prophylaxis. Will check MRI tomorrow to eval the extent of the hemarthrosis. Patient is now on oxygen for sats <90% last night. Patient has never required oxygen in the past. Check portable chest xray today. ABG's. Continue to monitor.
[2021-11-07 09:48] LABS: PCO2 ARTERIAL,POC 49 mmHg (35-48)
[2021-11-07 09:58] LABS: CHLORIDE,CL 99 mmol/L (98-107); SODIUM,NA 138 mmol/L (136-145)
[2021-11-07 10:03] LABS: ANION GAP 13.6 mmol/L (5-15)
[2021-11-07] MEDS: ASPIRIN 81 MG PO SCH (10:03)
[2021-11-07] MEDS: LAMOTRIGINE 200 MG PO SCH (10:03)
[2021-11-07] MEDS: CILOSTAZOL 100 MG PO SCH ×2 (10:03→21:37)
[2021-11-07] MEDS: MAGNESIUM OXIDE 400 MG PO SCH (10:03)
[2021-11-07] MEDS: FUROSEMIDE 20 MG PO SCH (10:03)
[2021-11-07] MEDS: METOPROLOL SUCCINATE 100 MG PO SCH (10:04)
[2021-11-07] MEDS: Pantoprazole 40 MG Tab.CR PO SCH (10:16)
--- NOTE | 2021-11-07 10:54 | CR ---
[id number] RAD/RAD Chest PA or AP 1V EXAM: FRONTAL CHEST INDICATION: HYPOXIA. COMPARISON: None. DISCUSSION: Cardiomegaly with mild interstitial edema. Mild basilar opacities most suggestive of atelectasis. No definite effusions. IMPRESSION: 1. Mild congestive heart failure. Oumar Tracey MD 11/07/21 [id number] Thank you for allowing us to participate in the care of your patient.
--- NOTE | 2021-11-07 10:57 | CR ---
[id number] RAD/RAD Abdomen Flat Plate 1V EXAM: RAD Abdomen Flat Plate 1V INDICATION: EPIGASTRIC PAIN, NAUSEA, VOMITING. COMPARISON: August 12, 2018. DISCUSSION: Cholelithiasis. Mild to moderate gaseous distention of the stomach. Mildly prominent colonic stool volume. No small bowel dilation, free air, or pneumatosis. Stimulator leads overlie the upper sacrum/lower lumbar spine. No free air or pneumatosis is detected. Bilateral iliac stents. IMPRESSION: 1. Cholelithiasis. 2. Mild to moderate gastric distention. 3. Prominent colonic stool volume. Oumar Tracey MD 11/07/21 [id number] Thank you for allowing us to participate in the care of your patient.
[2021-11-07] MEDS: Polyethylene Glycol 3350 Powder 17 GM Packet PO PRN (20:51)
[2021-11-07] MEDS: LOSARTAN PO SCH (21:00)
[2021-11-07] MEDS: OXYBUTYNIN 10 MG PO SCH (21:00)
[2021-11-07] MEDS: Allopurinol 100 MG Tab (OWN SUPPLY) PO SCH (21:00)
[2021-11-07] MEDS: Mineral Oil/Petrolatum,White Crm 454 GM Jar TOP PRN (22:42)
[2021-11-08] MEDS: Acetaminophen/HYDROcodone 325-5 MG Tab PO PRN ×2 (04:34→10:10)
[2021-11-08] MEDS: Pantoprazole 40 MG Tab.CR PO SCH (06:28)
[2021-11-08] MEDS: [UNRECOGNIZED DRUG - OTHER] SQ SCH (06:39)
[2021-11-08] MEDS: CILOSTAZOL 100 MG PO SCH ×2 (06:39→19:54)
[2021-11-08] MEDS: INSULIN GLARGINE SQ SCH (06:39)
[2021-11-08] MEDS: ASPIRIN 81 MG PO SCH (10:05)
[2021-11-08] MEDS: LAMOTRIGINE 200 MG PO SCH (10:09)
[2021-11-08] MEDS: FUROSEMIDE 20 MG PO SCH (10:09)
[2021-11-08] MEDS: METOPROLOL SUCCINATE 100 MG PO SCH (10:10)
[2021-11-08] MEDS: MAGNESIUM OXIDE 400 MG PO SCH (10:10)
[2021-11-08] MEDS: Allopurinol 100 MG Tab (OWN SUPPLY) PO SCH (19:53)
[2021-11-08] MEDS: LOSARTAN PO SCH (19:54)
[2021-11-08] MEDS: OXYBUTYNIN 10 MG PO SCH (19:55)
[2021-11-09] MEDS: Mineral Oil/Petrolatum,White Crm 454 GM Jar TOP PRN (03:01)
[2021-11-09] MEDS: [UNRECOGNIZED DRUG - OTHER] SQ SCH (06:10)
[2021-11-09] MEDS: INSULIN GLARGINE SQ SCH (06:10)
[2021-11-09] MEDS: Pantoprazole 40 MG Tab.CR PO SCH (06:22)
[2021-11-09 07:17] LABS: ANION GAP 9.1 mmol/L (5-15)
[2021-11-09] MEDS ORDERED: Furosemide 40 MG/4 ML VIAL IM ONE (07:31)
[2021-11-09] MEDS ORDERED: CILOSTAZOL 100 MG PO SCH (08:00)
[2021-11-09] MEDS: ASPIRIN 81 MG PO SCH (10:15)
[2021-11-09] MEDS: LAMOTRIGINE 200 MG PO SCH (10:15)
[2021-11-09] MEDS: FUROSEMIDE 20 MG PO SCH (10:15)
[2021-11-09] MEDS: Acetaminophen/HYDROcodone 325-5 MG Tab PO PRN (10:16)
[2021-11-09] MEDS: MAGNESIUM OXIDE 400 MG PO SCH (10:17)
[2021-11-09] MEDS ORDERED: METOPROLOL SUCCINATE PO ONE (11:15)
[2021-11-09] MEDS: CILOSTAZOL 100 MG PO SCH ×2 (11:26→19:29)
[2021-11-09] MEDS: OXYBUTYNIN 10 MG PO SCH (19:29)
[2021-11-09] MEDS: Allopurinol 100 MG Tab (OWN SUPPLY) PO SCH (19:29)
[2021-11-09] MEDS: LOSARTAN PO SCH (19:30)
[2021-11-10] MEDS: Pantoprazole 40 MG Tab.CR PO SCH (06:49)
[2021-11-10] MEDS: [UNRECOGNIZED DRUG - OTHER] SQ SCH (06:49)
[2021-11-10] MEDS: INSULIN GLARGINE SQ SCH (06:49)
[2021-11-10] MEDS: CILOSTAZOL 100 MG PO SCH ×2 (08:13→19:26)
[2021-11-10] MEDS: ASPIRIN 81 MG PO SCH (08:13)
[2021-11-10] MEDS: LAMOTRIGINE 200 MG PO SCH (08:13)
[2021-11-10] MEDS: FUROSEMIDE 20 MG PO SCH (08:13)
[2021-11-10] MEDS: METOPROLOL SUCCINATE PO SCH (08:13)
[2021-11-10] MEDS: MAGNESIUM OXIDE 400 MG PO SCH (08:18)
[2021-11-10] MEDS: Acetaminophen/HYDROcodone 325-5 MG Tab PO PRN (19:26)
[2021-11-10] MEDS: OXYBUTYNIN 10 MG PO SCH (19:27)
[2021-11-10] MEDS: LOSARTAN PO SCH (19:28)
[2021-11-10] MEDS: Allopurinol 100 MG Tab (OWN SUPPLY) PO SCH (19:30)
[2021-11-11] MEDS: Acetaminophen/HYDROcodone 325-5 MG Tab PO PRN (06:30)
[2021-11-11] MEDS: Pantoprazole 40 MG Tab.CR PO SCH (06:30)
[2021-11-11] MEDS: INSULIN GLARGINE SQ SCH (06:31)
[2021-11-11] MEDS: [UNRECOGNIZED DRUG - OTHER] SQ SCH (06:31)
[2021-11-11] MEDS: ASPIRIN 81 MG PO SCH (07:10)
[2021-11-11] MEDS: METOPROLOL SUCCINATE PO SCH (07:11)
[2021-11-11] MEDS: LAMOTRIGINE 200 MG PO SCH (07:11)
[2021-11-11] MEDS: MAGNESIUM OXIDE 400 MG PO SCH (07:11)
[2021-11-11] MEDS: CILOSTAZOL 100 MG PO SCH (07:20)
[2021-11-11] MEDS ORDERED: Furosemide 40 MG Tab PO SCH (08:00)
--- NOTE | 2021-11-11 08:14 | DISCH ---
LOCATION: Swing bed unit at [facility]. ADMITTING DIAGNOSES: 1. Distal radial fracture of the right arm. 2. Weakness and deconditioning. 3. Fall at assisted living. 4. Coronary artery disease. 5. Type 2 diabetes with long-term use of insulin without complication. 6. Hyperlipidemia secondary to type 2 diabetes. 7. Hypertension associated with type 2 diabetes. 8. Primary insomnia. 9. History of gout. 10.Chronic obstructive pulmonary disease. DISCHARGE DIAGNOSES: 1. Distal radius fracture of the right arm, stable. 2. Weakness and deconditioning, unchanged. 3. Fall at assisted living, resolved. 4. Coronary artery disease. 5. Type 2 diabetes with long-term use of insulin without complication. 6. Hyperlipidemia secondary to type 2 diabetes. 7. Hypertension associated with type 2 diabetes. 8. Primary insomnia. 9. History of gout. 10.Chronic obstructive pulmonary disease. HISTORY OF PRESENT ILLNESS: An 86-year-old male patient had presented to the emergency room at [facility] on 11/03/2021 after he fell at the assisted living facility. Workup in the emergency room showed a distal radial fracture, which was splinted in the emergency room. The patient apparently tripped and fell while trying to ambulate with his walker. The patient denied any head injury or trauma. No neck or back pain. The patient did complain of right hip pain and exacerbation of low back pain. The patient did not have any bowel or bladder dysfunction. No numbness, tingling, or paresthesia to any extremity. The patient was admitted to observation and switched to self-pay swing bed for further cares. BRIEF HOSPITAL COURSE: The patient declined physical and occupational therapy while on swing bed. The patient had declined taking his meds on a couple of different occasions. The patient did require oxygen to keep his saturations greater than 90%. Workup of his oxygen status did not reveal any acute etiology for the need for oxygen. The patient's eating habits declined. The patient's behaviors were sometimes aggressive towards staff. The patient's left lower extremity wound remained stable. This is chronic. The wound was present prior to admission. CONSULTATIONS: Case Management for discharge planning, Physical Therapy, and Occupational Therapy. DISCHARGE DIET: ADA. CODE STATUS: Code 2. ACTIVITY: Per PT recommendation. REVIEW OF SYSTEMS: Constitutional: Negative. Skin: The patient complains of chronic left lower extremity wound, otherwise no concerns. Respiratory: Negative. Cardiovascular: Negative. Abdomen: Intermittent nausea with vomiting during the night, otherwise no issues. Extremities: Negative. Neurological: Negative. DISCHARGE PHYSICAL EXAMINATION: Vital Signs: Weight 190.1 pounds, temperature 98, pulse 85, blood pressure 147/85, respiratory rate 18, and oxygen saturation 94% on room air. Skin: The patient has a chronic venous stasis ulcer, left lower extremity, which is very slow to heal; otherwise, skin is fragile throughout. The patient has an abrasion to the outer lateral beard and also a venous stasis ulcer to the inner lateral beard, left lower extremity. Please see nursing note for further documentation. Respiratory: Lungs are decreased but clear throughout. Cardiovascular: Regular rate and rhythm. No murmur. Abdomen: Slightly distended. Bowel sounds are hypoactive x4. Abdomen is soft. Extremities: No edema. Neurological: The patient is alert. The patient is oriented to self and place but disoriented to time. No new focal neurological deficits. DISCHARGE LABORATORY WORK: 1. CBC: White blood cell count 10.4, hemoglobin 12.5, hematocrit 38.6, and platelets 304,000. 2. CMP: Sodium 139, potassium 4.1, chloride 100, CO2 of 34, anion gap 9.1, BUN 33, creatinine 1.4, GFR 48, and glucose 143. Calcium 9.0, AST 17, ALT 14, alkaline phosphatase 135, and total protein 7.0. 3. Amylase 17. 4. Lipase 41. 5. BNP 4579. DISCHARGE IMAGING STUDIES: 1. CT of the right hip, which shows joint effusion, somewhat hyperdense, raising the possibility of hemarthrosis. No fracture is evident by CT. Moderate osteoarthritis of the right hip. Soft tissue swelling lateral to the right greater trochanter. 2. Abdominal x-ray shows cholelithiasis and [id number] gastric distention with prominent colonic stool volume consistent with constipation. 3. Chest x-ray shows mild congestive heart failure. DISCHARGE MEDICATIONS: 1. Acetaminophen/hydrocodone 325 mg/5 mg 1 tablet p.o. every 4 hours as needed. 2. Ventolin HFA 2 puffs every 4 hours as needed. 3. Allopurinol 100 mg 1 tablet p.o. daily at bedtime. 4. Aspirin 81 mg 1 tablet p.o. daily. 5. Dulcolax 10 mg p.r. daily as needed. 6. Calcium carbonate 750 mg p.o. daily as needed. 7. Sarna lotion topically daily as needed. 8. Pletal 100 mg p.o. twice daily. 9. Senna S 1 tablet p.o. daily as needed. 10.Furosemide 40 mg 1 tablet p.o. daily. 11.Halobetasol topically twice daily as needed. 12.Levothyroxine 37.5 mcg p.o. every 48 hours. 13.Cozaar 75 mg 1 tablet p.o. daily. 14.Milk of magnesia 30 mL p.o. daily as needed. 15.Magnesium oxide 400 mg p.o. daily. 16.Toprol-XL 200 mg p.o. daily. 17.Mineral oil topically daily as needed. 18.Oxybutynin 10 mg ER 1 tablet p.o. daily. 19.MiraLAX 17 g p.o. daily. 20.Phenergan 25 mg p.o. every 6 hours as needed. 21.Trazodone 50 mg 1 tablet p.o. daily, 50 mg p.o. bedtime as needed. 22.Triamcinolone topically daily as needed. 23.Basaglar 12 units subcu daily. 24.Lamotrigine 200 mg p.o. daily. ASSESSMENT: 1. Distal radial fracture of the right arm, stable. 2. Weakness and deconditioning, stable. 3. Fall at assisted living, resolved. 4. Coronary artery disease. 5. Type 2 diabetes with long-term use of insulin without complication. 6. Hyperlipidemia secondary to type 2 diabetes. 7. Hypertension associated with type 2 diabetes. 8. Primary insomnia. 9. History of gout. 10.Chronic obstructive pulmonary disease. PLAN: An 86-year-old male patient, who was admitted to the swing bed unit at [facility] for the above diagnoses and will be discharged to the [facility] on 11/11/2021. We will continue the same medications with the following changes: Metoprolol was increased to 200 mg daily. Lasix was increased to 40 mg daily. Activity as tolerated per PT and OT recommendations at the care home. No medical indication for psych consult. Diet will be ADA. Continue the same cares from swing bed in the care home. I would like a wound nurse consult for the chronic ulcer on the left lower extremity. The patient is a code 2. The patient will be seen by me at the care home on 11/12/2021, for admission to [facility]. The patient was discharged from the swing bed unit at [facility] in hemodynamically stable condition. TB: 11/10/2021 19:15:03 MODL: 11/10/2021 23:55:47 /[id number]
== END 2021-11-11 09:17 | DRG 561 ==
LOC: VM.MS 12:49
PROVIDERS: ADMIT Nurse Practitioner Family; ATTEND Nurse Practitioner Family
DX: S52.501D Unspecified fracture of the lower end of right radius, subsequent encounter for closed fracture with routine healing (principal); R53.81 Other malaise; I25.10 Atherosclerotic heart disease of native coronary artery without angina pectoris; E78.5 Hyperlipidemia, unspecified; E11.69 Type 2 diabetes mellitus with other specified complication; I10 Essential (primary) hypertension; F51.01 Primary insomnia; J44.9 Chronic obstructive pulmonary disease, unspecified; E78.2 Mixed hyperlipidemia; Z20.822 Contact with and (suspected) exposure to COVID-19; G47.33 Obstructive sleep apnea (adult) (pediatric); E03.9 Hypothyroidism, unspecified; Z79.82 Long term (current) use of aspirin; Z79.4 Long term (current) use of insulin; Z79.899 Other long term (current) drug therapy
CPT/HCPCS: 36415; 36600; 71045; 73700-RT; 74018; 80053; 82150; 82271; 82803; 82947; 83690; 83880; 85025; 94760; A9270-GY; J1940; U0002

== ENCOUNTER 2021-11-18 12:50 | Inpatient (IN) | payer MEDICARE, BC ==
[2021-11-18 13:35] LABS: PTT,PARTIAL THROMBOPLSTIN TIME 35.6 SEC (25.6-32.8)
[2021-11-18 13:43] LABS: ANION GAP 12.3 mmol/L (5-15); CHLORIDE,CL 96 mmol/L (98-107); SODIUM,NA 133 mmol/L (136-145)
[2021-11-18] MEDS ORDERED: Albuterol/Ipratropium 3.0-0.5 MG/3 ML Neb Soln NEB ONE (14:23)
--- NOTE | 2021-11-18 14:53 | CT ---
[id number] CT/CT Abdomen Pelvis WO IV EXAM: CT Abdomen Pelvis WO IV CLINICAL DATA: BLOODY EMESIS. COMPARISON STUDY: None. FINDINGS: Airspace consolidation involving the dependent portion lungs bilaterally. This is most pronounced within the lower lobes. Multiple stones within the gallbladder which is distended. The liver, spleen, pancreas, adrenal glands are unremarkable. Punctate nonobstructing left renal calculi. No hydronephrosis or hydroureter. Bilateral renal cysts. No bowel obstruction or inflammation. The appendix is visualized and appears normal. Small amount of layering hyperdensity within the cecum. No lymphadenopathy, free fluid, or pneumoperitoneum. Circumferential wall thickening of the urinary bladder likely secondary to chronic outlet obstruction in the setting of enlarged prostate. . Numerous vascular stents. Infrarenal abdominal aortic aneurysm measuring up to 3.4 cm. Scattered changes of spondylosis the spine. No fracture or osseous lesion. IMPRESSION: 1. Airspace consolidation involving the dependent portion of the lungs bilaterally most proximal lower lobes. This may be related to aspiration. 2. Distended gallbladder containing multiple large stones. If concern for acute cholecystitis, further evaluation to start with ultrasound could be considered. 3. Small amount of layering hyperdensity within the cecum. This is nonspecific though could be seen with acute blood and/or recently ingested pills. Hussein Reyes DO 11/18/21 1670 Thank you for allowing us to participate in the care of your patient.
--- NOTE | 2021-11-18 14:53 | CR ---
[id number] RAD/RAD Chest PA or AP 1V EXAM: RAD Chest PA or AP 1V INDICATION: DECREASED O2 SAT, COUGH. COMPARISON: None. DISCUSSION: Cardiomediastinal silhouette is normal in size and contour. Dense pulmonary infiltrates bilaterally, right greater than left. No pneumothorax or pleural effusion. IMPRESSION: Dense pulmonary infiltrates bilaterally, right greater than left. Hussein Reyes DO 11/18/21 3210 Thank you for allowing us to participate in the care of your patient.
--- NOTE | 2021-11-18 15:21 | EDM.PDOC ---
ED HPI GENERAL MEDICAL PROBLEM - General Chief Complaint: Gastrointestinal Problem Stated Complaint: PA from clinic sent over via EMS with concern about bright red emesis, O2 sat in 80s Time Seen by Provider: 11/18/21 12:50 Source of Information: Reports: Patient, EMS, Provider - History of Present Illness Onset: Unknown/Unsure Onset Date: 11/18/21 Treatments MOLD HOLDER: Reports: Other (see below) (EMS - IVFs) - Related Data Allergies Allergy/AdvReac Type Severity Reaction Status Date / Time No Known Allergies Allergy Verified 11/03/21 15:46 Home Meds: Home Meds Albuterol [Proventil HFA] 2 puff INH Q4H PRN 07/11/18 [History] Levothyroxine 37.5 mcg PO Q48H 07/11/18 [History] Oxybutynin [Oxybutynin ER] 10 mg PO DAILY@199907/11/18 [History] bisacodyL [Dulcolax] 10 mg RC DAILY PRN 07/11/18 [History] cilostazoL [Cilostazol] 100 mg PO BIDAC 07/11/18 [History] traZODone HCl [Trazodone HCl] 50 mg PO BEDTIME PRN 07/11/18 [History] Losartan [Cozaar] 75 mg PO DAILY@199908/22/18 [History] Promethazine [Phenergan] 25 mg PO Q6H PRN 08/22/18 [History] allopurinoL [Zyloprim] 100 mg PO DAILY@199908/22/18 [History] lamoTRIgine [Lamictal] 200 mg PO DAILY 08/22/18 [History] Magnesium Oxide 400 mg PO DAILY tablet 08/29/18 [Rx] Sennosides/Docusate Sodium [Senna Plus Tablet] 1 tab PO DAILY PRN 09/19/18 [History] Aspirin 81 mg PO DAILY 11/03/21 [History] Hydrocodone/Acetaminophen [HYDROcodone-Acetaminophen 5-325 MG] 1 - 2 each PO Q4H PRN 11/03/21 [History] Insulin Glargine,Hum.Rec.Anlog [Basaglar Kwikpen U-100] 12 unit SQ DAILY@0700 11/03/21 [History] Calcium Carbonate [Tums Extra Strength] 750 mg PO ASDIRECTED PRN 11/04/21 [History] Camphor/Menthol [Sarna Lotion] 1 applic TOP DAILY PRN 11/04/21 [History] [place]/Min Oil/Caitie/Wool Alcoh [Eucerin Creme] 1 applic TOP DAILY PRN 11/04/21 [History] Halobetasol [Halobetasol Propionate] 1 applic TOP BID PRN 11/04/21 [History] Magnesium Hydroxide [Milk of Magnesia] 30 ml PO DAILY PRN 11/04/21 [History] Triamcinolone Acetonide [Triamcinolone Acetonide 0.1% Crm] 1 applic TOP DAILY PRN 11/04/21 [History] polyethylene glycoL 3350 [Miralax] 17 gm PO DAILY PRN 11/04/21 [History] Metoprolol Succinate [Toprol XL 50mg] 0 mg PO DAILY tab.er 11/10/21 [Rx] Pantoprazole [ProTONIX] 40 mg PO ACBREAKFAST tab.cr 11/10/21 [Rx] Past Medical History HEENT History: Reports: Hard of Hearing, Other (See Below) Other HEENT History: CA of the left ear (removed) Cardiovascular History: Reports: Afib, High Cholesterol, Hypertension, PVD, Stents Other Cardiovascular History: Coronoary Atherosclerosis of [place] Respiratory History: Reports: COPD, Sleep Apnea Musculoskeletal History: Reports: Other (See Below) Other Musculoskeletal History: Generalized weakness AEB patient stating he has been falling more over the last couple of days. Endocrine/Metabolic History: Reports: Diabetes, Type II, Hypothyroidism Oncologic (Cancer) History: Reports: Squamous Cell Carcinoma - Infectious Disease History Infectious Disease History: Reports: VRE - Past Surgical History Other HEENT Surgeries/Procedures: Primary Squamous cell carcinoma of Left ear; Abscess of left external ear; Cancer of Left ear Cardiovascular Surgical History: Reports: Coronary Artery Stent Respiratory Surgical History: Reports: None Oncologic Surgical History: Reports: Other (See Below) Other Oncologic Surgeries/Procedures: skin graft to left ear from thigh Dermatological Surgical History: Reports: Skin Graft Social & Family History - Family History Family Medical History: No Pertinent Family History - Caffeine Use Caffeine Use: Reports: Coffee ED ROS GENERAL - Review of Systems Review Of Systems: See Below Constitutional: Reports: Weakness HEENT: Reports: No Symptoms Respiratory: Reports: Cough Cardiovascular: Reports: No Symptoms Endocrine: Reports: No Symptoms GI/Abdominal: Reports: Hematemesis : Reports: No Symptoms Musculoskeletal: Reports: Other (recent right wrist fx) Skin: Reports: Dryness, Erythema Neurological: Reports: Weakness Psychiatric: Reports: No Symptoms Hematologic/Lymphatic: Reports: No Symptoms Immunologic: Reports: No Symptoms ED EXAM, GI/ABD - Physical Exam Exam: See Below General Appearance: Alert, No Apparent Distress Eyes: Bilateral: EOMI Ears: Other (missing left ear) Nose: Normal Inspection, Normal Mucosa, No Blood Throat/Mouth: Normal Inspection, Normal Oropharynx, Normal Voice, No Airway Compromise Head: Atraumatic, Normocephalic Neck: Normal Inspection, Supple, Non-Tender, Full Range of Motion Respiratory/Chest: No Respiratory Distress, Other (lung sounds coarse bilaterally, diminished in bases) Cardiovascular: Normal Peripheral Pulses, Other (irregular) GI/Abdominal Exam: Normal Bowel Sounds (irregular), Soft, Non-Tender, No Distention Rectal (Males) Exam: Heme - Stool Extremities: No Pedal Edema, Normal Capillary Refill Neurological: Alert, Slow to Respond Psychiatric: Normal Affect, Normal Mood Skin Exam: Warm, Dry, Intact, Erythema, Other (erythema on buttocks) Lymphatic: No Adenopathy #1 Interpretation EKG Date: 11/18/21 Rhythm: A-Flutter (flutter on bedside monitor, but not consistently. Hx a fib.) Course - Vital Signs Last Recorded V/S: Last Vital Signs Temp 98.2 F 11/18/21 12:50 Pulse 73 11/18/21 17:19 Resp 11 L 11/18/21 17:19 BP 91/48 L 11/18/21 17:19 Pulse Ox 99 11/18/21 17:19 - Orders/Labs/Meds Orders: Active Orders 24 hr Category Date Time Status Hemoccult [Fecal Occult Bld Scn Imm] [RC] ASDIRECTED Care 11/18/21 12:59 Active RT Aerosol Therapy [RC] ASDIRECTED Care 11/18/21 14:24 Active Medication Orders Albuterol/Ipratropium (Albuterol/Ipratropium 3.0-0.5 Mg/3 Ml Neb Soln) 3 ml NEB Q4HWA LUIS ALBERTO Albuterol/Ipratropium (Albuterol/Ipratropium 3.0-0.5 Mg/3 Ml Neb Soln) 3 ml NEB Q2H PRN PRN Reason: Shortness of Breath Ceftriaxone Sodium (Ceftriaxone 1 Gm Vial) 1 gm IVPUSH DAILY@1800 LUIS ALBERTO Azithromycin 500 mg/ Sodium (Chloride) 250 mls @ 250 mls/hr IV DAILY@1800 [facility] Labs: Laboratory Tests 11/18/21 11/18/21 11/18/21 Range/Units 13:14 13:14 13:14 WBC 19.7 H (4.0-10.0) x10^3/uL RBC 3.97 L (4.5-6.0) x10^6/uL Hgb 11.4 L (14.0-18.0) g/dL Hct 35.1 L (40.0-52.0) % MCV 88.4 (78.0-93.0) fL MCH 28.7 (26.0-32.0) pg MCHC 32.5 (32.0-36.0) g/dL RDW Coeff of Daniel 15.0 (10.0-15.0) % Plt Count 349 (130-400) x10^3/uL Immature Gran % (Auto) 0.40 (0.00-0.43) % Neut % (Auto) 75.5 (50.0-80.0) % Lymph % (Auto) 21.6 L (25.0-50.0) % [place] % (Auto) 2.4 (2.0-11.0) % Eos % (Auto) 0.1 (0.0-4.0) % Baso % (Auto) 0.0 L (0.2-1.2) % Neut # (Auto) 14.9 H (1.8-7.7) x10^3/uL Lymph # (Auto) 4.3 (1.0-4.8) x10^3/uL [place] # (Auto) 0.5 (0.0-0.8) x10^3/uL Eos # (Auto) 0.0 (0.0-0.5) x10^3/uL Baso # (Auto) 0.0 (0.0-0.2) x10^3/uL Immature Gran # (Auto) 0.07 (0.00-0.07) x10^3/uL PT 11.2 (9.9-12.5) SEC INR 1.0 L (2.0-3.5) APTT 35.6 H (25.6-32.8) SEC Sodium 133 L (136-145) mmol/L Potassium 4.3 (3.5-5.1) mmol/L Chloride 96 L (98-107) mmol/L Carbon Dioxide 29 (21-32) mmol/L Anion Gap 12.3 (5-15) mmol/L BUN 50 H (7-18) mg/dL Creatinine 2.4 H (0.70-1.30) mg/dL Est Cr Clr Drug Dosing TNP Estimated GFR (MDRD) 26 Glucose 167 H (70-99) mg/dL Calcium 8.5 (8.5-10.1) mg/dL Corrected Calcium 10.2 H (8.5-10.1) mg/dL Total Bilirubin 0.9 (0.2-1.0) mg/dL AST 15 (15-37) U/L ALT 10 L (16-63) U/L Alkaline Phosphatase 180 H (46-116) U/L Total Protein 6.2 L (6.4-8.2) g/dL Albumin 1.9 L (3.4-5.0) g/dL Globulin 4.3 Albumin/Globulin Ratio 0.44 Influenza Type A RNA (NEGATIVE) RSV RNA (INAAT) (NEGATIVE) Influenza Type B RNA (NEGATIVE) SARS-CoV-2 RNA ([place]) (NEGATIVE) SARS CoV-2 RNA Rapid [place] (NEGATIVE) 11/18/21 11/18/21 Range/Units 13:19 14:48 WBC (4.0-10.0) x10^3/uL RBC (4.5-6.0) x10^6/uL Hgb (14.0-18.0) g/dL Hct (40.0-52.0) % MCV (78.0-93.0) fL MCH (26.0-32.0) pg MCHC (32.0-36.0) g/dL RDW Coeff of Daniel (10.0-15.0) % Plt Count (130-400) x10^3/uL Immature Gran % (Auto) (0.00-0.43) % Neut % (Auto) (50.0-80.0) % Lymph % (Auto) (25.0-50.0) % [place] % (Auto) (2.0-11.0) % Eos % (Auto) (0.0-4.0) % Baso % (Auto) (0.2-1.2) % Neut # (Auto) (1.8-7.7) x10^3/uL Lymph # (Auto) (1.0-4.8) x10^3/uL [place] # (Auto) (0.0-0.8) x10^3/uL Eos # (Auto) (0.0-0.5) x10^3/uL Baso # (Auto) (0.0-0.2) x10^3/uL Immature Gran # (Auto) (0.00-0.07) x10^3/uL PT (9.9-12.5) SEC INR (2.0-3.5) APTT (25.6-32.8) SEC Sodium (136-145) mmol/L Potassium (3.5-5.1) mmol/L Chloride (98-107) mmol/L Carbon Dioxide (21-32) mmol/L Anion Gap (5-15) mmol/L BUN (7-18) mg/dL Creatinine (0.70-1.30) mg/dL Est Cr Clr Drug Dosing Estimated GFR (MDRD) Glucose (70-99) mg/dL Calcium (8.5-10.1) mg/dL Corrected Calcium (8.5-10.1) mg/dL Total Bilirubin (0.2-1.0) mg/dL AST (15-37) U/L ALT (16-63) U/L Alkaline Phosphatase (46-116) U/L Total Protein (6.4-8.2) g/dL Albumin (3.4-5.0) g/dL Globulin Albumin/Globulin Ratio Influenza Type A RNA Negative (NEGATIVE) RSV RNA (INAAT) Negative (NEGATIVE) Influenza Type B RNA Negative (NEGATIVE) SARS-CoV-2 RNA ([place]) Negative (NEGATIVE) SARS CoV-2 RNA Rapid [place] Negative (NEGATIVE) Meds: Medications Generic Name Dose Route Start Last Admin Trade Name Freq PRN Reason Stop Dose Admin Albuterol/Ipratropium 3 ml 11/18/21 20:00 Albuterol/Ipratropium 3.0-0.5 Mg/3 Ml Neb Soln NEB Q4HWA LUIS ALBERTO Albuterol/Ipratropium 3 ml 11/18/21 17:38 Albuterol/Ipratropium 3.0-0.5 Mg/3 Ml Neb Soln NEB Q2H PRN Shortness of Breath Ceftriaxone Sodium 1 gm 11/18/21 18:00 Ceftriaxone 1 Gm Vial IVPUSH DAILY@1800 LUIS ALBERTO Azithromycin 500 mg/ Sodium 250 mls @ 250 mls/hr 11/18/21 18:00 Chloride IV DAILY@1800 LUIS ALBERTO Discontinued Medications Generic Name Dose Route Start Last Admin Trade Name Freq PRN Reason Stop Dose Admin Albuterol/Ipratropium 3 ml 11/18/21 14:23 11/18/21 14:46 Albuterol/Ipratropium 3.0-0.5 Mg/3 Ml Neb Soln NEB 11/18/21 14:24 3 ml ONETIME ONE Administration Piperacillin Sod/Tazobactam 100 mls @ 200 mls/hr 11/18/21 16:45 11/18/21 16:52 Sod 2.25 gm/ Sodium Chloride IV 11/18/21 17:14 200 mls/hr ONETIME ONE Administration - Re-Assessments/Exams Free Text/Narrative Re-Assessment/Exam: 11/18/21 15:27 Arrived with O2 sat of 80. Placed on oxygen in ER. Liter of NS IV given for SBP of 80. Sat and SBP both improved. Hemocult negative for blood in stool. Has dense pulmonary infiltrates bilaterally. Has gallstones and layering hyperdensity in cecum. COVID neg. WBC 19.7, creatinine 2.4. [facility] and [place] both state no rooms available. Awaiting call for GABRIEL Bond. Pt will need to be admitted. 11/18/21 17:33 Free Text/Narrative Re-Assessment/Exam: 11/18/21 16:38 GABRIEL Bond informed that pt needs to be admitted. Has not accepted yet. States he put him on statewide list. Discussed antibx / creatinine dose with pharmacist and ordered Zosyn 2.25gm x one dose for now. Still trying to get pt placed inpatient status. 11/18/21 17:33 Free Text/Narrative Re-Assessment/Exam: 11/18/21 16:58 No beds available. GABRIEL Bond agrees to admit pt. 11/18/21 17:33 Departure - Departure Time of Disposition: 17:45 Disposition: Admitted As Inpatient 66 Clinical Impression: Increased white blood cell count, Gallstone, Hypotension, Oxygen desaturation, Increase in creatinine, Pulmonary infiltrate on chest x-ray, Atrial flutter by electrocardiogram - Discharge Information Sepsis Event Note (ED) - Focused Exam Vital Signs: Vital Signs Temp Pulse Resp BP Pulse Ox 11/18/21 17:02 72 13 95/52 L 95 11/18/21 16:32 73 12 105/59 L 98 11/18/21 16:02 73 11 L 108/51 L 99 11/18/21 15:32 73 14 113/56 L 100 11/18/21 15:02 73 15 104/68 100 11/18/21 14:32 71 12 114/57 L 99 11/18/21 13:48 71 13 87/41 L 96 11/18/21 13:04 71 12 81/47 L 97 11/18/21 12:53 84 L 11/18/21 12:50 98.2 F 73 16 86/41 L 84 L - Problem List & Annotations (1) Pulmonary infiltrate on chest x-ray SNOMED Code(s): 963855721, 410028914 Code(s): R91.8 - OTHER NONSPECIFIC ABNORMAL FINDING OF LUNG FIELD Status: Acute Current Visit: Yes (2) Oxygen desaturation SNOMED Code(s): 567551080 Code(s): R09.02 - HYPOXEMIA Status: Acute Current Visit: Yes (3) Increased white blood cell count SNOMED Code(s): 560128391, 915558930 Code(s): D72.829 - ELEVATED WHITE BLOOD CELL COUNT, UNSPECIFIED Status: Acute Current Visit: Yes (4) Increased white blood cell count SNOMED Code(s): 600349219, 033605959 Code(s): D72.829 - ELEVATED WHITE BLOOD CELL COUNT, UNSPECIFIED Status: Acute Current Visit: Yes (5) Gallstone SNOMED Code(s): 221634032 Code(s): K80.20 - CALCULUS OF GALLBLADDER W/O CHOLECYSTITIS W/O OBSTRUCTION Status: Acute Current Visit: Yes (6) Coffee ground emesis SNOMED Code(s): 45939842 Code(s): K92.0 - HEMATEMESIS Status: Acute Current Visit: Yes (7) Increase in creatinine SNOMED Code(s): 539446957 Code(s): R79.89 - OTHER SPECIFIED ABNORMAL FINDINGS OF BLOOD CHEMISTRY Status: Acute Current Visit: Yes (8) Increase in creatinine SNOMED Code(s): 228029377 Code(s): R79.89 - OTHER SPECIFIED ABNORMAL FINDINGS OF BLOOD CHEMISTRY Status: Acute Current Visit: Yes (9) Atrial flutter by electrocardiogram SNOMED Code(s): 095749202 Code(s): I48.92 - UNSPECIFIED ATRIAL FLUTTER Status: Acute Current Visit: Yes (10) Atrial flutter by electrocardiogram SNOMED Code(s): 755183354 Code(s): I48.92 - UNSPECIFIED ATRIAL FLUTTER Status: Acute Current Visit: Yes - Problem List Review Problem List Initiated/Reviewed/Updated: Yes - My Orders Last 24 Hours: My Active Orders 11/18/21 12:59 Hemoccult [Fecal Occult Bld Scn Imm] [RC] ASDIRECTED 11/18/21 14:24 RT Aerosol Therapy [RC] ASDIRECTED - Assessment/Plan Last 24 Hours: My Active Orders 11/18/21 12:59 Hemoccult [Fecal Occult Bld Scn Imm] [RC] ASDIRECTED 11/18/21 14:24 RT Aerosol Therapy [RC] ASDIRECTED
[2021-11-18 15:29] LABS: CORONAVIRUS COVID-19 NAA NEGATIVE (NEGATIVE); RESPIRATORY SYNCYTIAL VIR NAA NEGATIVE (NEGATIVE)
[2021-11-18] MEDS ORDERED: Piperacillin/Tazobactam 2.25 GM in Sodium Chloride 0.9% 100 ML IV ONE (16:45)
[2021-11-18] MEDS ORDERED: Albuterol/Ipratropium 3.0-0.5 MG/3 ML Neb Soln NEB PRN (17:38)
[2021-11-18] MEDS ORDERED: cefTRIAXone 1 GM Vial IVPUSH SCH (18:00)
[2021-11-18] MEDS ORDERED: Azithromycin 500 MG in Sodium Chloride 0.9% 250 ML IV SCH (18:00)
[2021-11-18] MEDS ORDERED: Albuterol/Ipratropium 3.0-0.5 MG/3 ML Neb Soln NEB SCH (20:00)
--- NOTE | 2021-11-22 07:49 | DISCH ---
ADMITTING DIAGNOSES: 1. Sepsis secondary to bilateral lower lobe pneumonia, unknown organism. 2. Acute respiratory failure with hypoxia. 3. Cholelithiasis. 4. Hematemesis. 5. Type 2 diabetes, on long-term use insulin, with neuropathy. 6. Atrial fibrillation, on anticoagulation. 7. Hypertension associated with type 2 diabetes. 8. Hyperlipidemia due to type 2 diabetes. 9. Left ear cancer. DISCHARGE DIAGNOSES: 1. Sepsis secondary to bilateral lower lobe pneumonia, unknown organism. 2. Acute respiratory failure with hypoxia. 3. Cholelithiasis. 4. Hematemesis. 5. Type 2 diabetes, on long-term use insulin, with neuropathy. 6. Atrial fibrillation, on anticoagulation. 7. Hypertension associated with type 2 diabetes. 8. Hyperlipidemia due to type 2 diabetes. 9. Left ear cancer. HISTORY OF PRESENT ILLNESS: An 86-year-old male patient who was initially seen at the [facility] by me and sent to the emergency room at [facility] due to hypoxia, hypotension, fatigue, and hematemesis. Workup in the emergency room, chest x-ray showed dense pulmonary infiltrates bilaterally which possibly could be from aspiration. The patient also had a distended gallbladder containing multiple large stones. The patient also had a small amount of layering hyperdensity within the cecum which could have been from acute blood loss or recently ingested pills. The patient had a white blood cell count of 19.7, CRP of 91.5, however, lactic acid was normal. The patient did have a blood pressure in the 90s over the 40s and was on a 10 L non-rebreather with oxygen saturation of 99%. BRIEF HOSPITAL COURSE: The patient was seen and examined by me on admission to the floor, however, I did receive a phone call from [facility] that they are able to take the patient in transfer. The patient's assessment and workup were reviewed prior to transfer. The patient did not have any issues for the very short time he was in our facility. The patient received albuterol nebulizer in the emergency department. The patient also received 1 dose of Zosyn. CONSULTATIONS: None. DISCHARGE DIET: NPO. ACTIVITY: As tolerated. DISCHARGE LABORATORY WORK: 1. CBC: White blood cell count 19.7, hemoglobin 11.4, hematocrit 35.1, platelets 349,000. 2. INR 1.0. 3. CMP: Sodium 133, potassium 4.3, chloride 96, CO2 of 23, anion gap 12.3, BUN 50, creatinine 2.4, GFR 26, glucose 167, calcium 8.5, AST 15, ALT 10, alkaline phosphatase 180, total protein 6.2. 4. Lactic acid 1.3. 5. C-reactive protein 91.5. 6. Negative influenza, negative RSV, negative COVID-19. DISCHARGE MEDICATIONS: 1. Trazodone 50 mg 1 tablet p.o. daily at bedtime as needed. 2. MiraLAX 17 g p.o. daily as needed. 3. Lamictal 200 mg p.o. daily. 4. Pletal 100 mg p.o. twice daily. 5. Dulcolax 100 mg p.r. daily as needed. 6. Allopurinol 100 mg p.o. daily. 7. Senna Plus 1 tablet p.o. daily as needed. 8. Phenergan 25 mg p.o. every 6 hours as needed. 9. Protonix 40 mg p.o. daily. 10.Oxybutynin 10 mg p.o. daily. 11.Metoprolol-XL 1 tablet p.o. daily. 12.Magnesium oxide 400 mg 1 tablet p.o. daily. 13.Losartan 75 mg 1 tablet p.o. daily. 14.Milk of magnesia 30 mL p.o. daily as needed. 15.Basaglar 12 units subcu daily. 16.Hydrocodone 1 tablet p.o. every 4 hours as needed. 17.Calcium carbonate 750 mg 1 tablet p.o. daily as needed. 18.Aspirin 81 mg 1 tablet p.o. daily. 19.Albuterol HFA 2 puffs every 4 hours as needed. REVIEW OF SYSTEMS: See HPI. DISCHARGE PHYSICAL EXAMINATION: Vital Signs: Pulse 73, blood pressure 91/48, respiratory rate 11, oxygen saturation 99% on 10 L, temperature 99.1. Skin: Fragile, warm, and dry-see nursing documentation. Respiratory: Bibasilar rales, decreased throughout. Cardiovascular: Irregularly irregular rhythm, regular rate. Abdomen: Epigastric tenderness. Bowel sounds are hypoactive x4. Abdomen is soft. Extremities: See nursing documentation. Neurological: The patient is alert. The patient is oriented to person, place, and time. ASSESSMENT: 1. Acute respiratory failure with hypoxia secondary to bibasilar pneumonia, unknown organism. 2. Sepsis secondary to bibasilar pneumonia, unknown organism. 3. Hematemesis. 4. Hypotension. 5. Fevers. 6. Epigastric pain. PLAN: The patient will be transferred to [facility] as they have ultrasound, surgeon if needed, and intensive care. The patient continues to be a full code 1. The patient was signed out to Dr. Stover. All questions were answered. The patient was transferred to [place] via [facility] ground ambulance. The patient was discharged from [facility] in stable condition. EMTALA forms and ambulance transfer sheet were completed in their entirety. TB: 11/21/2021 17:39:31 MODL: 11/21/2021 18:41:39 /[id number]
== END 2021-11-18 19:05 | disposition short-term general hospital (02) | DRG 871 ==
LOC: VM.ED 12:50 → VM.MS 17:07
PROVIDERS: ADMIT Nurse Practitioner Family; ATTEND Nurse Practitioner Family
DX: A41.9 Sepsis, unspecified organism (principal); R91.8 Other nonspecific abnormal finding of lung field; R09.02 Hypoxemia; D72.829 Elevated white blood cell count, unspecified; J18.9 Pneumonia, unspecified organism; R79.89 Other specified abnormal findings of blood chemistry; I48.92 Unspecified atrial flutter; H91.90 Unspecified hearing loss, unspecified ear; E78.00 Pure hypercholesterolemia, unspecified; J96.01 Acute respiratory failure with hypoxia; K92.0 Hematemesis; I48.91 Unspecified atrial fibrillation; G47.30 Sleep apnea, unspecified; E78.5 Hyperlipidemia, unspecified; I10 Essential (primary) hypertension; Z85.828 Personal history of other malignant neoplasm of skin; I73.9 Peripheral vascular disease, unspecified; Z79.82 Long term (current) use of aspirin; Z79.890 Hormone replacement therapy; K80.20 Calculus of gallbladder without cholecystitis without obstruction; Z79.899 Other long term (current) drug therapy; E11.40 Type 2 diabetes mellitus with diabetic neuropathy, unspecified; C44.209 Unspecified malignant neoplasm of skin of left ear and external auricular canal; R10.13 Epigastric pain; J44.9 Chronic obstructive pulmonary disease, unspecified; I25.10 Atherosclerotic heart disease of native coronary artery without angina pectoris; Z20.822 Contact with and (suspected) exposure to COVID-19; E03.9 Hypothyroidism, unspecified; G47.33 Obstructive sleep apnea (adult) (pediatric); Z79.4 Long term (current) use of insulin; Z95.5 Presence of coronary angioplasty implant and graft; Z98.890 Other specified postprocedural states; Z79.01 Long term (current) use of anticoagulants
CPT/HCPCS: 0241U; 36415; 71045; 74176; 80053; 83605; 85025; 85610; 85730; 86140; 87040; 93005; 94640; 96365; 99285-25; G0328; J2543; J7620-GY; U0002

== ENCOUNTER 2022-09-01 11:04 | Emergency (ER) | payer MEDICARE, BC ==
[2022-09-01] MEDS ORDERED: Sodium Chloride 0.9% 10 ML Syringe FLUSH PRN (11:10)
[2022-09-01] MEDS: Albuterol/Ipratropium 3.0-0.5 MG/3 ML Neb Soln NEB ONE (11:10)
[2022-09-01] MEDS: methylPREDNISolone Sodium Succinate 125 MG/2 ML SDV IVPUSH ONE (11:41)
[2022-09-01] MEDS: Furosemide 20 MG/2 ML VIAL IV ONE (11:42)
[2022-09-01 11:46] LABS: CHLORIDE,CL 98 mmol/L (98-107); SODIUM,NA 135 mmol/L (136-145)
[2022-09-01 11:47] LABS: ANION GAP 5.6 mmol/L (5-15); ESTIMATED GFR 49 mL/min (>=60)
== END 2022-09-01 14:28 | disposition short-term general hospital (02) ==
LOC: VM.ED 11:04
DX: J45.901 Unspecified asthma with (acute) exacerbation (principal); R09.02 Hypoxemia; Q24.9 Congenital malformation of heart, unspecified; I48.91 Unspecified atrial fibrillation; E78.00 Pure hypercholesterolemia, unspecified; I10 Essential (primary) hypertension; J44.9 Chronic obstructive pulmonary disease, unspecified; E11.9 Type 2 diabetes mellitus without complications; E03.9 Hypothyroidism, unspecified; Z79.899 Other long term (current) drug therapy; Z79.82 Long term (current) use of aspirin; Z95.5 Presence of coronary angioplasty implant and graft
CPT/HCPCS: 80053; 82550; 83880; 84484; 85025; 85610; 93005; 94640; 94760; 96374; 96375; 99284; 99285; J1940; J2930; J7620-GY

== ENCOUNTER 2022-09-26 07:51 | Emergency (ER) | payer MEDICARE, BC ==
[2022-09-26 08:48] LABS: ANION GAP 6.9 mmol/L (5-15)
[2022-09-26] MEDS ORDERED: Furosemide 40 MG/4 ML VIAL IV ONE (08:54)
[2022-09-26] MEDS ORDERED: cefTRIAXone 1 GM Vial IVPUSH ONE (09:10)
[2022-09-26] MEDS ORDERED: Morphine 2 MG/ML SYRINGE IVPUSH ONE (09:26)
== END 2022-09-26 11:15 | disposition short-term general hospital (02) ==
LOC: VM.ED 07:51
DX: I11.0 Hypertensive heart disease with heart failure (principal); I50.9 Heart failure, unspecified; J44.9 Chronic obstructive pulmonary disease, unspecified; E11.9 Type 2 diabetes mellitus without complications; Z79.899 Other long term (current) drug therapy; Z79.82 Long term (current) use of aspirin; Z79.4 Long term (current) use of insulin; Z87.891 Personal history of nicotine dependence
CPT/HCPCS: 51702; 71045; 80053; 81001; 83880; 84484; 85025; 86140; 93005; 93010; 96374; 96375; 99284; 99285-25; J0696; J1940; J2270

== ENCOUNTER 2022-11-06 12:45 | Emergency (ER) | payer MEDICARE, BC ==
[2022-11-06 13:53] LABS: CHLORIDE,CL 99 mmol/L (98-107); SODIUM,NA 139 mmol/L (136-145)
[2022-11-06 13:59] LABS: ANION GAP 10.6 mmol/L (5-15)
[2022-11-06 14:00] LABS: CORONAVIRUS COVID-19 NAA NEGATIVE (NEGATIVE)
[2022-11-06 14:00] LABS: ESTIMATED GFR 32 mL/min (>=60)
[2022-11-06] MEDS ORDERED: Furosemide 40 MG/4 ML VIAL IV ONE (14:33)
[2022-11-06] MEDS ORDERED: Take Home: Doxycycline 100 MG Tab, 4 Tab Pack PO ONE (14:33)
== END 2022-11-06 15:20 | disposition home or self-care (01) ==
LOC: VM.ED 12:45
DX: J18.9 Pneumonia, unspecified organism (principal); E11.22 Type 2 diabetes mellitus with diabetic chronic kidney disease; I13.0 Hypertensive heart and chronic kidney disease with heart failure and stage 1 through stage 4 chronic kidney disease, or unspecified chronic kidney disease; N18.9 Chronic kidney disease, unspecified; I50.9 Heart failure, unspecified; I48.91 Unspecified atrial fibrillation; E78.00 Pure hypercholesterolemia, unspecified; E03.9 Hypothyroidism, unspecified; J44.9 Chronic obstructive pulmonary disease, unspecified; Z20.822 Contact with and (suspected) exposure to COVID-19; Z87.891 Personal history of nicotine dependence; Z79.899 Other long term (current) drug therapy
CPT/HCPCS: 0240U; 36415; 71045; 80053; 83880; 85025; 86140; 96374; 99284; 99284-25; A9270-GY; J1940

== ENCOUNTER 2023-01-21 06:22 | Emergency (ER) | payer MEDICARE, BC ==
[2023-01-21 06:59] LABS: ANION GAP 21.1 mmol/L (5-15); CHLORIDE,CL 98 mmol/L (98-107); SODIUM,NA 137 mmol/L (136-145)
[2023-01-21 07:00] LABS: ESTIMATED GFR 15 mL/min (>=60)
[2023-01-21 07:12] LABS: PTT,PARTIAL THROMBOPLSTIN TIME 53.1 SEC (20.5-30.9)
== END 2023-01-21 06:33 | disposition expired ==
LOC: VM.ED 06:22
DX: I46.9 Cardiac arrest, cause unspecified (principal); E11.649 Type 2 diabetes mellitus with hypoglycemia without coma; J44.9 Chronic obstructive pulmonary disease, unspecified; E87.5 Hyperkalemia; D72.829 Elevated white blood cell count, unspecified; J96.11 Chronic respiratory failure with hypoxia; I13.0 Hypertensive heart and chronic kidney disease with heart failure and stage 1 through stage 4 chronic kidney disease, or unspecified chronic kidney disease; E11.22 Type 2 diabetes mellitus with diabetic chronic kidney disease; N18.9 Chronic kidney disease, unspecified; I50.9 Heart failure, unspecified; N17.9 Acute kidney failure, unspecified; I25.10 Atherosclerotic heart disease of native coronary artery without angina pectoris; I48.91 Unspecified atrial fibrillation
CPT/HCPCS: 36415; 80048; 84484; 85025; 85379; 85610; 85730; 99285